=== PATIENT | male | born 1960 | race Caucasian/White ===

== ENCOUNTER → 2017-05-27 | Outpatient (CLI) | payer BC ==
[~2017-05-27] MED LIST: ACET-24 PO; ACET1TAB84 PO; BUPRTAB PO; CHOL400C7 PO; CLB/200 PO; DVN/160 PO; ESCI1TAB10 PO; FINA5TAB PO; HYDR12.55 PO; MORP-157 PO; NXM/40 PO; PHN/100 PO; RXC5 PO; TAMS0.4C38 PO; XRL10 PO
[2017-05-27 15:19] LABS: FREE PSA 0.47 ng/ml; PROSTATE SPECIFIC ANTIGEN 3.12 ng/ml (0.000-4.000)
== END | disposition home or self-care (01) ==
LOC: C.LAB 14:11
PROVIDERS: ATTEND Urology
DX: R97.20 Elevated prostate specific antigen [PSA] (principal)

== ENCOUNTER 2017-06-17 06:33 | Inpatient (IN) | payer BC ==
[2017-05-18 09:39] VITALS: BMI 41.0
--- NOTE | 2017-05-18 10:17 | PAT Medication Instructions ---
Service Date May 18, 2017. Current Home Medication List Acetaminophen (Tylenol Arthritis Ext Rel), 1,300 MG PO QAM Bupropion Hcl (Wellbutrin Xl), 150 MG PO QAM Celecoxib (CeleBREX), 200 MG PO QAM Cholecalciferol (Vitamin D 400 Iu), 800 INTER.UNIT PO QAM Escitalopram Oxalate (Lexapro), 20 MG PO QAM Esomeprazole Magnesium (Nexium), 40 MG PO QAM Finasteride (Proscar), 5 MG PO QPM Hydrochlorothiazide (Hydrochlorothiazide), 12.5 MG PO QAM Phenytoin Sodium (Dilantin), 200 MG PO QAM Phenytoin Sodium (Dilantin), 300 MG PO QPM Tamsulosin Hcl (Flomax), 1 CAP PO QPM Valsartan (Diovan), 160 MG PO QAM Medication Instructions For Your Scheduled Surgery - Check with surgeon for instructions: Celecoxib (CeleBREX), 200 MG PO QAM - Hold the following medications the morning of surgery: Valsartan (Diovan), 160 MG PO QAM Hydrochlorothiazide (Hydrochlorothiazide), 12.5 MG PO QAM Cholecalciferol (Vitamin D 400 Iu), 800 INTER.UNIT PO QAM - Take the following medications the morning of surgery with a sip of water: Phenytoin Sodium (Dilantin), 200 MG PO QAM Escitalopram Oxalate (Lexapro), 20 MG PO QAM Esomeprazole Magnesium (Nexium), 40 MG PO QAM Acetaminophen (Tylenol Arthritis Ext Rel), 1,300 MG PO QAM Bupropion Hcl (Wellbutrin Xl), 150 MG PO QAM - Take the following medications as scheduled the night before surgery: Phenytoin Sodium (Dilantin), 300 MG PO QPM Tamsulosin Hcl (Flomax), 1 CAP PO QPM Finasteride (Proscar), 5 MG PO QPM Acetaminophen (Tylenol Arthritis Ext Rel), 1,300 MG PO QAM Bupropion Hcl (Wellbutrin Xl), 150 MG PO QAM If you have any questions please call us at [phone] or [phone] or [phone]
[2017-05-18 11:13] LABS: BASO ABS # 0.05 K/uL (0-0.2); COMPLETE YES; EOS % 10.7 %; HEMATOCRIT 47.6 % (42-52); IG% 0.2 %; LYMPH % 28.7 %; LYMPH ABS # 1.39 K/uL (1.2-3.4); MEAN CELL VOLUME 92.6 fL (80-100); MEAN CORPUSCULAR HEMOGLOBIN 29.8 pg (25-34); MEAN CORPUSCULAR HGB CONC 32.1 g/dl (32-36); MEAN PLATELET VOLUME 10.3 fL (7.4-10.4); MONO % 8.1 %; NEUT % 51.3 %; PLATELET COUNT 206 K/uL (130-400); RED BLOOD COUNT 5.14 M/uL (4.7-6.1); WHITE BLOOD COUNT 4.84 K/uL (4.8-10.8)
[2017-05-18 11:23] LABS: BUN/CREATININE RATIO 27.6 (10-20); CREATININE 0.9 mg/dl (0.60-1.40); POTASSIUM 4.1 mmol/L (3.5-5.1)
[2017-05-18 11:27] LABS: PARTIAL THROMBOPLASTIN RATIO 1.1; PROTHROMBIN TIME (PATIENT) 10.7 SECONDS (9.0-12.0)
--- NOTE | 2017-05-18 11:35 | DIAGNOSTIC IMAGING REPORT ---
CHEST 2 VIEWS ROUTINE CLINICAL HISTORY: PAT preoperative evaluation COMPARISON STUDY: 02/06/2013 FINDINGS: The bones soft tissues and hemidiaphragms are normal. The cardiomediastinal silhouette is normal. The lungs are clear. The pulmonary vasculature is normal. IMPRESSION: Negative chest. The above report was generated using voice recognition software. It may contain grammatical, syntax or spelling errors. Electronically signed by: Ronal Butler M.D. 05/18/2017 11:33 AM Dictated Date/Time: 05/18/2017 11:33 AM
--- NOTE | 2017-06-13 16:52 | HISTORY & PHYSICAL EXAMINATION ---
DATE OF ADMISSION: 06/17/2017 CHIEF COMPLAINT: Bilateral knee pain and discomfort, left side greater than right. 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 He has got history of bilateral knee pain and discomfort. He had his right knee scoped once in the past in 2002 and the left knee scoped twice. This was all done around the [place] area. We have been treating him conservatively with injections. He has had both steroid shots and viscosupplementation which became less effective over time. He actually had an adverse reaction to viscosupplementation. 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 He has got bilateral knee pain and discomfort. His walking tolerance is limited to a couple of blocks. He would now like to proceed with left knee replacement. Of note, the patient does have a history of DVT and PE after a triple arthrodesis of his left ankle done in [place] back in 2012. He has got no known clotting disorder. PAST MEDICAL HISTORY: 1. Hypertension. 2. History of DVT and PE in 2013 with no known clotting disorder. 3. Anxiety. 4. History of seizure disorder, currently without seizures, on Dilantin. 5. Obesity with a BMI of 42. 6. Low back pain. PAST SURGICAL HISTORY: Previous surgeries include: 1. Back surgery in 1990. 2. Right knee scope in 2002. 3. Left knee arthroscopy x2. 4. Triple arthrodesis in 2013 done at [place]. ALLERGIES: LODINE WHICH CAUSES HIVES AND RASH. CURRENT MEDICINES: Include: 1. Dilantin. 2. Diovan. 3. Lexapro. 4. Wellbutrin. 5. Celebrex. 6. Hydrochlorothiazide. 7. Vitamin D. 8. Tamsulosin. 9. Finasteride. 10. Omeprazole. 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 He is single. FAMILY HISTORY: Noncontributory. REVIEW OF SYSTEMS: As above. Does have this history of DVT without any known clotting disorder. His medical doctor is Dr. Winston. Denies any chest pain or shortness of breath. No bleeding problems. PHYSICAL EXAMINATION: GENERAL: Reveals a pleasant, healthy, middle-aged male. Looks to be in pretty good shape. HEENT: Benign. NECK: Supple. No lymphadenopathy. LUNGS: Clear to auscultation. HEART: Regular rate and rhythm. ABDOMEN: Soft, nontender, nondistended. EXTREMITIES: Grossly neurovascularly intact except as follows: Examination of both knees reveals the patient ambulates independently. He has got valgus alignment to both knees. He has got moderate to large soft tissue envelope. He has got some slight swelling in his legs and some slight venous stasis changes. Range of motion of both the knees is pretty symmetrical with 5 degrees short of full extension, 120 degrees of flexion. There is no instability in either side. X-RAYS: X-rays of both knees reviewed. It shows advanced bilateral knee DJD. He has got tricompartment disease. He has got complete loss of his lateral joint space, particularly on 30-degree flexion films. The left side is a bit worse than the right. He has got some chondrocalcinosis. 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 He has no known clotting disorder. He would like to proceed with knee replacement. PLAN: We are going to proceed with left knee replacement. I think with his clotting disorder, I think it is too high risk to do both knees at the same time. We will do his left knee first. He does have metal allergy, so we will use a Gonzalez [employer] Nephew zirconium knee replacement. We will be aggressive with DVT prophylaxis. The risks and benefits of this procedure were explained to the patient including but not limited to DVT, PE, , infection, neurological injury, vascular injury, bleeding problem, pain, limited range of motion, stiffness, failure to relieve symptoms, incomplete relief of symptoms, need for further surgery in the future, fracture, leg length inequality, nerve palsy, and need for revision surgery. The patient understands and desires to proceed. Informed consent was obtained. As far as discharge plans, he is planning to be discharged to home using [facility] home health program.
[2017-06-17] VITALS (9 sets, daily range): BP systolic 103–178; BP diastolic 65–109; PULSE 65–86; TEMP 36.4–37; O2SAT 92–100; Ht 185.4 cm; Wt 143.7 kg
[~2017-06-17] VITALS: Ht 185.4 cm; Wt 143.7 kg
[~2017-06-17 06:33] MED LIST changes: -ACET-24 PO; +ACETAMINOPHEN 500 MG TAB PO SCH; +BUPIVACAINE 0.25% 30 ML VIAL ONE; +BUPIVACAINE 0.5 % 5 MG/1 ML PF 10ML VIAL ONE; +BUPIVACAINE LIPOSOME 266 MG, BUPIVACAINE/EPINEPHRINE INJ 50 ML, SODIUM CHLORIDE 0.9% PF... INFIL SCH; +CEFAZOLIN 3000 MG/65 ML D5W 65 ML IV SCH; +FAMOTIDINE 20 MG TAB PO SCH; +FENTANYL CITRATE INJ 50 MCG/1 ML 2 ML VIAL ONE; +GABAPENTIN 300 MG CAP PO SCH; +LACTATED RINGER'S 1000ML 1,000 ML IV SCH; +LACTATED RINGER'S 1000ML 500 ML IV SCH; +METOCLOPRAMIDE HCL 10 MG TAB PO SCH; +MIDAZOLAM HCL 1 MG/ML 2ML VIAL ONE; -MORP-157 PO; -RXC5 PO; +SCOPOLAMINE 1.5 MG TDSY TD SCH; +TRANEXAMIC ACID INJ 1,000 MG in SODIUM CHLORIDE 0.9% 100ML 100 ML IV SCH; -XRL10 PO
--- NOTE | 2017-06-17 06:47 | History & Physical Bridge Note ---
H&P Re-Evaluation Bridge Note: I have examined the patient, reviewed the History & Physical and in the interval since the performance of the History & Physical I have noted the following changes of clinical significance: No changes noted
[2017-06-17] MEDS ORDERED: ATROPINE SULFATE 0.1 MG/ML 5ML SYR IV PRN (07:45)
[2017-06-17] MEDS ORDERED: ONDANSETRON INJ 2 MG/ML 2 ML VIAL IV PRN ×2 (07:45→11:30)
[2017-06-17] MEDS ORDERED: EpHEDrine SULFATE INJ 50 MG/ML AMP IV PRN (07:45)
[2017-06-17] MEDS ORDERED: BUPIVACAINE LIPOSOME 1/3% 266 MG/20 ML VIAL INFIL ONE (09:05)
[2017-06-17] MEDS ORDERED: BUPIVACAINE/EPINEPHRINE 0.25% 1:200,000 30 ML VIAL ONE (09:05)
[2017-06-17] MEDS ORDERED: BACITRACIN 50000 UNIT VIAL ONE (09:05)
[2017-06-17] MEDS ORDERED: SODIUM CHLORIDE 0.9% PF 50 ML VIAL ONE (09:05)
[2017-06-17] MEDS ORDERED: MIDAZOLAM HCL 1 MG/ML 2ML VIAL ONE ×3 (09:21→10:42)
[2017-06-17] MEDS ORDERED: PROPOFOL IV EMULSION 10 MG/ML 20 ML VIAL IV ONE ×4 (09:44→11:20)
[2017-06-17] MEDS ORDERED: MAGNESIUM HYDROXIDE SUSP 30 ML UDC PO PRN (11:30)
[2017-06-17] MEDS ORDERED: ALUMINUM/MAGNESIUM/SIMETH (MAALOX MAX) 30 ML UDC PO PRN (11:30)
[2017-06-17] MEDS ORDERED: BISACODYL 10 MG SUPP PR PRN (11:30)
[2017-06-17] MEDS ORDERED: DiphenhydrAMINE HCL 50 MG/ML VIAL IV PRN (11:30)
[2017-06-17] MEDS ORDERED: TAMSULOSIN HCL 0.4 MG CAP PO PRN (11:30)
[2017-06-17] MEDS ORDERED: MoRPHine SULFATE 2 MG/ML CARP IV PRN (11:30)
[2017-06-17] MEDS ORDERED: ZOLPIDEM TARTRATE 5 MG TAB PO PRN (11:30)
[2017-06-17] MEDS ORDERED: METOCLOPRAMIDE HCL INJ 5 MG/ML 2 ML VIAL IV PRN (11:30)
[2017-06-17] MEDS ORDERED: SILVER SULFADIAZINE 1% CR 50 GM JAR EXT PRN (11:30)
--- NOTE | 2017-06-17 11:30 | [facility] Post Operative Brief Note ---
Immediate Operative Summary Operative Date Jun 17, 2017. Pre-Operative Diagnosis Left Knee, Degenerative Joint Disease Post-Operative Diagnosis Same as preoperative Procedure(s) Performed Left Total Knee Arthroplasty Surgeon Dr. Eugene Orozco Distribution Superintendent Surgeon(s) Agustin Pepper PA-C Estimated Blood Loss 100 ml Findings Left Knee DJD Fluids (cc crystalloids) 1200 cc Specimens A.) Left Knee Bone and Tissue Drains HMV LEft Knee Anesthesia Spinal Complication(s) None Disposition Recovery Room / PACU
--- NOTE | 2017-06-17 11:53 | Anesthesiology Progress Note ---
Anesthesia Post Op Note Date & Time Jun 17, 2017 at 11:53 Vital Signs Pain Intensity: 0 Vital Signs Past 12 Hours Date Time Temp Pulse Resp B/P (MAP) Pulse Ox O2 Delivery O2 Flow Rate FiO2 06/17/17 11:45 74 14 123/87 100 Oxymask 10 06/17/17 11:35 36.2 75 14 129/80 97 Oxymask 10 06/17/17 07:41 81 20 140/89 (106) 94 Room Air 06/17/17 06:59 36.9 86 20 149/106 94 Room Air Notes Mental Status: alert / awake / arousable, participated in evaluation Pt Amnestic to Procedure: Yes Nausea / Vomiting: adequately controlled Pain: adequately controlled Airway Patency, RR, SpO2: stable & adequate BP & HR: stable & adequate Hydration State: stable & adequate Neuraxial Anesthesia: was administered, sensory block is resolving Anesthetic Complications: no major complications apparent
--- NOTE | 2017-06-17 11:59 | OPERATIVE REPORT ---
DATE OF OPERATION: 06/17/2017 SURGEON: Eugene Orozco MD INJECTION MOLDING TECHNICIAN: DEIDRE Rodriguez PREOPERATIVE DIAGNOSIS: Left knee degenerative joint disease. POSTOPERATIVE DIAGNOSIS: Same. PROCEDURE PERFORMED: Left cemented posterior stabilized total knee arthroplasty. COMPLICATIONS: None. ESTIMATED BLOOD LOSS: 100 mL. FLUID REPLACEMENT: 1200 mL crystalloid fluid replacement. TOURNIQUET TIME: 77 minutes at 350 mmHg. ANESTHESIA: Spinal with adductor canal block. DRAINS: Hemovac drain, left knee x2. SPECIMENS: Left knee sent for pathology. 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 I have been following him for the past 5 years, treating with medicines and injections. This became less successful over time. The left knee is bothered more than the right knee and he elected to proceed with left total knee arthroplasty. The patient does have an apparent NICKEL ALLERGY, so we used the Gonzalez [employer] Nephew Zirconium total knee arthroplasty. OPERATIVE FINDINGS: Operative findings revealed advanced left knee DJD. He had extensive grade 4 changes in the lateral femoral condyle and lateral tibial plateau with eburnation of the lateral femoral condyle. He had a valgus aligned knee. He had a moderate sized joint effusion. Some osteophytes in the posterior aspect of the femur as well as the lateral compartment. OPERATIVE IMPLANTS: Operative implants consisted of: 1. Gonzalez & Nephew Journey II, size 7 femoral component. 2. Gonzalez [employer] Nephew Journey II, size 6 tibial tray. 3. A 9-mm posterior stabilized polyethylene insert. 4. A 35 x 9 all poly patella. OPERATIVE PROCEDURE: The patient was taken to the operating room, identified and placed on the operating table in the supine position. All contact areas were appropriately padded. IV antibiotics were provided by anesthesia team. A spinal anesthetic and adductor canal block had been provided in the holding area. Dasilva catheter was placed in sterile fashion. A left thigh tourniquet was then placed and left lower extremity was then prepped and draped in the usual sterile fashion. Left leg was elevated and exsanguinated with Esmarch and tourniquet was placed at 300 mmHg. An anterior approach of left knee was then performed through a longitudinal incision centered over the patella. Sharp dissection was carried out through the subcutaneous tissues down to the extensor mechanism. Medial parapatellar arthrotomy incision was made. Some subperiosteal dissection was carried out medially. The fat pad was resected from beneath the patellar tendon. The lateral patellofemoral ligament was released. The patella was everted and knee was flexed. The osteophytes were taken off the distal femur. The ACL and PCL were then released from the distal femur and the tibia subluxated anteriorly. The external tibial alignment jig was then placed in the anterior face of the tibia and adjusted 8 mm medially. Proximal tibial cut was made to remove about 4 mm of bone from the medial side. The tibia was then sized to a size 6. Some osteophytes were taken off medial and posteromedially. Attention was then drawn to the femur. The distal femur was entered with a sharp drill. Intramedullary canal was suctioned. A left 5-degree valgus cutting guide was placed. The distal femoral cutting block was pinned in place. I adjusted this to take an additional 2 mm of bone off the distal femur. The femur was then sized to a size 7. We did downsize this slightly. The AP cutting block was pinned parallel to the epicondylar axis, which was 6 degrees of external rotation. The anterior cut, anterior cord, posterior cut, posterior cord, and anterior chamfer cuts were made. I then placed the box guide. The milling and drill devices were used to create the intercondylar notch resection. The femoral component was then removed. I flexed the knee. The posterior osteophytes were removed. The remnants of the medial and lateral meniscus were excised. The femoral component was then replaced. The tibial tray was pinned in maximum external rotation and the drill and stem punch were used to create defect in proximal tibia for the tibial tray. I then trialed the knee and a 9-mm insert fit most appropriately. Attention was then drawn to the patella. The patella was cleaned of all soft tissues. Patella thickness measured 26 mm in thickness and it was cut down to 15. It was sized to a size 35 patella. Lug holes were drilled for a 35 patella. Lateral osteophyte was removed. Patella button was placed. Knee was taken through range of motion and patella tracked reasonably well. Attention was then drawn toward placement of permanent components. All trial components were removed. A bone plug was placed in the distal femur to limit blood loss. A double batch of Palacos G cement was mixed. A left size 7 femoral component, size 6 tibial tray, a 9-mm posterior stabilized polyethylene insert, a 35 x 9 all poly patella then cemented in place. Knee was brought out into full extension until cement hardened. A final cement check was then performed. Pericapsular tissues were injected with 100 mL of a combination of 20 mL of Exparel, 30 mL of normal saline, and 50 mL of 0.25% Marcaine with epinephrine. The patient did receive 1 gram of tranexamic acid. The tourniquet was then let down for final tourniquet time of 77 minutes. Hemostasis was assured with the use of electrocautery. There was quite a bit of oozing more than average, so we elected to place drains in the knee. The wound was once again irrigated. Two Hemovac drains were placed. The extensor mechanism was then closed with a combination of #1 PDS suture and #1 Vicryl suture in a [id number] fashion. Extensor mechanism was checked and found to be intact. Subcutaneous tissues were then closed with 2-0 Dexon suture in a buried interrupted fashion. Skin was closed skin ant. Leg was then cleaned and dried and a sterile dressing of Xeroform, 4 x 4, sterile cast padding and Quinten bandage were applied. The patient was then transferred to the recovery room in stable condition. The patient tolerated the procedure well with no complications. All needle and sponge counts were correct at the end of the operation. I attest to the content of the Intraoperative Record and any orders documented therein. Any exception s are noted below.
--- NOTE | 2017-06-17 12:12 | DIAGNOSTIC IMAGING REPORT ---
LEFT KNEE 1 OR 2 VIEWS ROUTINE CLINICAL HISTORY: Postoperative evaluation. COMPARISON: Left knee radiographs April 01, 2017. FINDINGS: Alignment of the total left knee arthroplasty is anatomic. There is no fracture or unexpected radiopaque foreign body. Skin ant and drains are present. IMPRESSION: Expected findings following total left knee arthroplasty. Electronically signed by: Jalen Medrano M.D. 06/17/2017 12:10 PM Dictated Date/Time: 06/17/2017 12:09 PM
[2017-06-17] MEDS: ACETAMINOPHEN 500 MG TAB PO SCH ×2 (13:46→22:17)
[2017-06-17] MEDS: D5W AND 1/2NSS + 20MEQ KCL 1,000 ML IV SCH ×2 (13:52→20:37)
[2017-06-17] MEDS: KETOROLAC TROMETHAMINE 15 MG/ML VIAL IV. SCH ×2 (14:32→20:36)
[2017-06-17] MEDS: CHECK SCOPOLAMINE PATCH PLACEMENT SCH (15:37)
[2017-06-17] MEDS: OXYCODONE HCL IR 5 MG TAB (IMMEDIATE RELEASE) PO PRN (15:49)
[2017-06-17] MEDS: VALSARTAN 80 MG TAB PO SCH (15:52)
[2017-06-17] MEDS: HYDROCHLOROTHIAZIDE 50 MG TAB PO SCH (15:53)
[2017-06-17] MEDS ORDERED: TRANEXAMIC ACID INJ 1,000 MG in SODIUM CHLORIDE 0.9% 100ML 100 ML IV SCH (17:30)
[2017-06-17] MEDS: FERROUS GLUCONATE 324 MG TAB PO SCH (18:27)
[2017-06-17] MEDS: CEFAZOLIN IV 2,000 MG in DEXTROSE 5% 50ML 50 ML IV SCH (18:59)
--- NOTE | 2017-06-17 19:59 | PROGRESS NOTE ---
DATE: 06/17/2017 SUBJECTIVE: A 57-year-old gentleman postop from a left knee replacement. He is doing well. Pain is controlled. No chest pain or shortness of breath. Not feeling dizzy or lightheaded. OBJECTIVE: VITAL SIGNS: Temperature is 36.7. Vital signs stable. GENERAL: Reveals a healthy, pleasant, middle-aged male. He is sitting up in bed, looks pretty comfortable. LUNGS: Clear to auscultation. HEART: Regular rate and rhythm. ABDOMEN: Soft, nontender, nondistended. EXTREMITIES: Grossly neurovascularly intact except as follows: Examination of the left leg reveals the dressing to be clean, dry and intact. Leg is well aligned. He can dorsiflex and plantarflex his foot appropriately. He is neurologically intact. X-RAYS: X-rays of the left knee from recovery room were reviewed. It shows left cemented total knee arthroplasty. Components looked to be in good position. No signs of problems. ASSESSMENT: A 57-year-old gentleman postop from a left knee replacement, doing well. Pain is controlled. He is neurologically intact. PLAN: 1. DVT prophylaxis including thigh-high TEDs, SCDs and Xarelto. We will start Xarelto 24 hours postop. He does have a history of a blood clot in the past just one without any known clotting disorder. 2. PT/OT. Weightbearing as tolerated. Left total knee protocol. 3. IV antibiotics x24 hours. 4. Pain control, doing well with current pain regimen. 5. Disposition: Planning to discharge to home with some home health once adequately recovered.
[2017-06-17] MEDS: DOCUSATE SODIUM 100 MG CAP PO SCH (20:45)
[2017-06-17] MEDS: FINASTERIDE 5 MG TAB PO SCH (20:46)
[2017-06-17] MEDS: TAMSULOSIN HCL 0.4 MG CAP PO SCH (20:46)
[2017-06-17] MEDS: PHENYTOIN SODIUM ER 100 MG CAP PO SCH (20:46)
[2017-06-17] MEDS: SENNA 8.6 MG TAB PO SCH (20:46)
[2017-06-17] MEDS: TAPENTADOL ER 50 MG TABCR PO SCH (20:48)
[2017-06-18] MEDS: CHECK SCOPOLAMINE PATCH PLACEMENT SCH ×4 (00:07→23:37)
[2017-06-18] MEDS: CEFAZOLIN IV 2,000 MG in DEXTROSE 5% 50ML 50 ML IV SCH (01:39)
[2017-06-18] MEDS: KETOROLAC TROMETHAMINE 15 MG/ML VIAL IV. SCH ×2 (01:40→07:54)
[2017-06-18] MEDS: D5W AND 1/2NSS + 20MEQ KCL 1,000 ML IV SCH ×2 (03:43→09:48)
[2017-06-18 04:01] VITALS: BP 112/68; PULSE 75; TEMP 36.9; O2SAT 94
[2017-06-18] MEDS: ACETAMINOPHEN 500 MG TAB PO SCH ×3 (06:00→21:21)
[2017-06-18 06:17] LABS: HEMATOCRIT 38.2 % (42-52); MEAN CELL VOLUME 94.3 fL (80-100); MEAN CORPUSCULAR HEMOGLOBIN 30.6 pg (25-34); MEAN CORPUSCULAR HGB CONC 32.5 g/dl (32-36); MEAN PLATELET VOLUME 9.7 fL (7.4-10.4); PLATELET COUNT 213 K/uL (130-400); RED BLOOD COUNT 4.05 M/uL (4.7-6.1); WHITE BLOOD COUNT 8.65 K/uL (4.8-10.8)
[2017-06-18 06:57] VITALS: BP 109/70; PULSE 73; TEMP 36.8; O2SAT 92
--- NOTE | 2017-06-18 07:48 | PROGRESS NOTE ---
DATE: 06/18/2017 SUBJECTIVE: A 57-year-old gentleman postop day 1 from a left knee replacement. He is doing pretty well. Pain is controlled. No chest pain or shortness of breath. Not feeling dizzy or lightheaded. OBJECTIVE: VITAL SIGNS: Temperature 36.8. Vital signs stable. PHYSICAL EXAMINATION: GENERAL: Reveals a healthy, pleasant, middle-aged male. He is lying in bed, looks pretty comfortable. LUNGS: Clear to auscultation. HEART: Regular rate and rhythm. ABDOMEN: Soft, nontender, nondistended. EXTREMITIES: Grossly neurovascularly intact except as follows: Examination of the left lower extremity reveals the leg to be well aligned. Dressing is clean, dry, and intact. He is neurologically intact. LABORATORY DATA: Hemoglobin 12.4. Hematocrit 38.4. Electrolytes are pending. ASSESSMENT: A 57-year-old gentleman postop day 1 from a left total knee replacement, doing pretty well. He does have a history of DVT x1 in the past. His pain is controlled. PLAN: 1. DVT prophylaxis including thigh-high TEDs, SCDs, and we will start Xarelto today for 1 month duration. 2. PT/OT. Weightbear as tolerated. Left total knee protocol. 3. Pain control, doing well with current pain regimen. 4. Disposition: He is planning to be discharged to home with some home health once adequately recovered.
--- NOTE | 2017-06-18 08:27 | Anesthesiology Progress Note ---
Anesthesia Post Op Note Date & Time Jun 18, 2017 at 08:27 Vital Signs Pain Intensity: 4.0 Vital Signs Past 12 Hours Date Time Temp Pulse Resp B/P (MAP) Pulse Ox O2 Delivery O2 Flow Rate FiO2 06/18/17 08:08 Room Air 06/18/17 06:57 36.8 73 19 109/70 (83) 92 Room Air 06/18/17 04:01 36.9 75 16 112/68 (83) 94 Room Air 06/17/17 23:54 37.0 75 17 114/75 (88) 92 Room Air 06/17/17 23:15 Room Air Notes Mental Status: alert / awake / arousable, participated in evaluation Pt Amnestic to Procedure: Yes Nausea / Vomiting: adequately controlled Pain: adequately controlled Airway Patency, RR, SpO2: stable & adequate BP & HR: stable & adequate Hydration State: stable & adequate Neuraxial Anesthesia: sensory block resolved Anesthetic Complications: no major complications apparent
[2017-06-18 08:50] LABS: BUN/CREATININE RATIO 20.2 (10-20); CALCIUM 7.9 mg/dl (8.5-10.1); CREATININE 0.98 mg/dl (0.60-1.40); POTASSIUM 3.6 mmol/L (3.5-5.1)
[2017-06-18] MEDS: TAPENTADOL ER 50 MG TABCR PO SCH ×2 (08:50→21:17)
[2017-06-18] MEDS: FERROUS GLUCONATE 324 MG TAB PO SCH ×3 (08:51→17:18)
[2017-06-18] MEDS: PHENYTOIN SODIUM ER 100 MG CAP PO SCH ×2 (08:51→21:20)
[2017-06-18] MEDS: ESCITALOPRAM OXALATE 20 MG TAB PO SCH (08:51)
[2017-06-18] MEDS: BuPROPion XL 150 MG TABCR PO SCH (08:51)
[2017-06-18] MEDS: OXYCODONE HCL IR 5 MG TAB (IMMEDIATE RELEASE) PO PRN ×4 (08:51→23:39)
[2017-06-18] MEDS: DOCUSATE SODIUM 100 MG CAP PO SCH ×2 (08:51→21:18)
[2017-06-18] MEDS: MULTIVITAMIN TAB PO SCH (08:51)
[2017-06-18] MEDS: CHOLECALCIFEROL 400 INTER.UNIT TAB PO SCH (08:51)
[2017-06-18] MEDS: PANTOprazole SOD 40 MG TAB PO SCH (08:51)
[2017-06-18] MEDS ORDERED: PANTOprazole SOD 40 MG TAB PO SCH (09:00)
[2017-06-18 10:03] VITALS: BP 149/91; PULSE 81; O2SAT 97
[2017-06-18] MEDS: RIVAROXABAN 10 MG TAB PO SCH (12:05)
[2017-06-18 12:07] VITALS: BP 150/95; PULSE 78; O2SAT 96
[2017-06-18 15:13] VITALS: BP 135/82; PULSE 85; TEMP 36.8; O2SAT 96
[2017-06-18] MEDS: TAMSULOSIN HCL 0.4 MG CAP PO SCH (21:18)
[2017-06-18] MEDS: FINASTERIDE 5 MG TAB PO SCH (21:19)
[2017-06-18] MEDS: SENNA 8.6 MG TAB PO SCH (21:19)
[2017-06-18] MEDS ORDERED: XRL10 PO (22:05)
[2017-06-18] MEDS ORDERED: ACET-24 PO (22:05)
[2017-06-18] MEDS ORDERED: RXC5 PO (22:05)
[2017-06-18] MEDS ORDERED: MORP-157 PO (22:05)
--- NOTE | 2017-06-18 22:08 | Discharge Instructions ---
Discharge Instructions Date of Service Jun 18, 2017. Admission Reason for Admission: Left Knee Degenerative Joint Disease Discharge Discharge Diagnosis / Problem: Left Knee Replacement Discharge Goals Goal(s): Decrease discomfort, Improve function, Increase independence, Improve disease control, Therapeutic intervention Activity Recommendations Activity Limitations: per Instructions/Follow-up section Weightbearing Status: Left weightbearing . Instructions / Follow-Up Instructions / Follow-Up ACTIVITY RECOMMENDATIONS: Physical Therapy: * You will go to physical therapy three times each week for four to six weeks after your surgery in order to regain your knee range of motion and to retrain your knee to work properly. * It is just as important to make sure you are getting your knee perfectly straight as it is to regain your knee bend. * Taking a pain pill an hour before therapy can help you have a more productive and comfortable therapy session. Home Exercise: * You were shown a series of exercises (heel props, heel slides, etc.) in the hospital. Do these exercises three to four times each day including the exercises you were shown in physical therapy. Walking: * Get up and walk several times each day. For the first four weeks, try not to stand or walk for more than one hour at a time. If you do stand or walk for more than one hour, you will not hurt anything, but your knee and leg will likely swell. * As you feel comfortable, you may change from the walker or crutches to a cane and then to independent walking. MEDICATIONS: New Medicine: * You will likely be taking one or more of these medications: 1. MS Contin - A long-acting pain medication. Take 1 tablet twice a day for the first ten days to decrease your baseline level of pain. 2. Oxycodone - A quick and shorter-acting pain medication. Take one to two tablets every four to six hours to lessen your pain. 3. Aspirin - Thins your blood to lessen the chance of forming a blood clot. * The most common side effects of pain medicine and iron are nausea and constipation. If nausea or constipation is too much of a problem or if you have any questions about your new medicines or doses, call [facility] at [phone]. We will try to help you manage these issues. VERY IMPORTANT TO READ AND REVIEW" Pain: * The immediate post-operative period after knee replacement surgery is often quite painful. * You are given a prescription for pain medicine. You should take it, as directed, when you need it, especially before physical therapy and before going to bed. Pain that interferes with sleep is very common and can last several months. * You will likely need pain medicine for the first four to six weeks. It will not stop all of the pain. The pain will lessen and as you feel better, you may change to milder pain medicine such as Tylenol. * The most common side effects of pain medicine are nausea and constipation, so don't take more than you need. SPECIAL CARE INSTRUCTIONS: TEDs/Elastic Stockings: * The white elastic stockings help limit swelling and prevent blood clots from forming in your legs. The more you wear them, the more they work. * Wear them for six weeks after knee replacement surgery and four weeks after partial knee replacement. Prevention of Infection: * Take antibiotics one hour before any dental cleaning, dental work, urological procedure, gastrointestinal procedure or any invasive surgery in order to prevent your new joint from getting infected. * You may get the antibiotics from the doctor performing the procedure or you may call our office at before and we will call in a prescription to the pharmacy of your choice. Things to Watch For: * Drainage from the incision site that occurs more than one week after your surgery. * Severely increased knee/leg pain or swelling. * Increased redness at the incision site. * Fever above 102 degrees Fahrenheit. * Unusual chest pain or shortness of breath. * Unusual pain or burning with urination. Call [facility] at with any of the above problems or if you have any questions about your medicines or recovery. FOLLOW UP VISIT: Make an appointment to see your doctor for approximately two weeks after surgery for a progress check and staple removal by calling the office at . Current Hospital Diet Patient's current hospital diet: Regular Diet Discharge Diet Recommended Diet: Regular Diet Procedures Procedures Performed: Left Total Knee Arthroplasty Pending Studies Studies pending at discharge: no Medical Emergencies . Who to Call and When: Medical Emergencies: If at any time you feel your situation is an emergency, please call [phone] immediately. . Non-Emergent Contact Non-Emergency issues call your: Surgeon . "Provider Documentation" section prepared by Eugene Orozco. . VTE Core Measure Inpt VTE Proph given/why not?: Other Anticoagulation, T.E.D. Stockings, SCD's
[2017-06-18 23:05] VITALS: BP 142/89; PULSE 92; TEMP 37; O2SAT 94
[2017-06-19] MEDS: ACETAMINOPHEN 500 MG TAB PO SCH (05:54)
[2017-06-19] MEDS: OXYCODONE HCL IR 5 MG TAB (IMMEDIATE RELEASE) PO PRN ×2 (05:57→10:42)
[2017-06-19 06:55] VITALS: BP 134/85; PULSE 88; TEMP 36.8; O2SAT 94
[2017-06-19 08:04] VITALS: BP 134/85; PULSE 88; TEMP 36.8; O2SAT 94
--- NOTE | 2017-06-19 08:41 | PROGRESS NOTE ---
DATE: 06/19/2017 DATE: 06/19/2017 SUBJECTIVE: A 57-year-old gentleman postop day 2 from a left knee replacement. He is doing pretty well. Pain is controlled. Therapy has gone well. No chest pain or shortness of breath. Not feeling dizzy or lightheaded. OBJECTIVE: VITAL SIGNS: Temperature 36.8. Vital signs stable. PHYSICAL EXAMINATION: GENERAL: Reveals a healthy, pleasant, middle-aged male. He is sitting at his bedside chair and looks pretty comfortable. LUNGS: Clear to auscultation. HEART: Regular rate and rhythm. ABDOMEN: Soft, nontender, nondistended. EXTREMITY EXAMINATION: Grossly neurovascularly intact except as follows: Examination of the left leg reveals the dressing to be clean, dry and intact. No significant drainage. His calf is soft and supple. He can dorsiflex and plantarflex his foot appropriately. He is neurologically intact. ASSESSMENT: A 57-year-old gentleman postop day 2 from a left knee replacement, doing pretty well. Pain is controlled. PLAN: 1. DVT prophylaxis including thigh-high TEDs, SCDs, and Xarelto. We will give him Xarelto for 1 month postop. 2. PT/OT. Weightbearing as tolerated. Left total knee protocol. 3. Pain control. Doing well with current pain regimen. 4. Disposition. Plan to discharge to home with some home health later today.
[2017-06-19] MEDS: MULTIVITAMIN TAB PO SCH (08:47)
[2017-06-19] MEDS: BuPROPion XL 150 MG TABCR PO SCH (08:47)
[2017-06-19] MEDS: DOCUSATE SODIUM 100 MG CAP PO SCH (08:47)
[2017-06-19] MEDS: HYDROCHLOROTHIAZIDE 50 MG TAB PO SCH (08:47)
[2017-06-19] MEDS: PANTOprazole SOD 40 MG TAB PO SCH (08:47)
[2017-06-19] MEDS: TAPENTADOL ER 50 MG TABCR PO SCH (08:47)
[2017-06-19] MEDS: FERROUS GLUCONATE 324 MG TAB PO SCH (08:47)
[2017-06-19] MEDS: ESCITALOPRAM OXALATE 20 MG TAB PO SCH (08:47)
[2017-06-19] MEDS: RIVAROXABAN 10 MG TAB PO SCH (08:47)
[2017-06-19] MEDS: CHOLECALCIFEROL 400 INTER.UNIT TAB PO SCH (08:48)
[2017-06-19] MEDS: VALSARTAN 80 MG TAB PO SCH (08:48)
[2017-06-19] MEDS: PHENYTOIN SODIUM ER 100 MG CAP PO SCH (08:48)
--- NOTE | 2017-06-22 16:04 | DISCHARGE SUMMARY ---
ADMITTING PHYSICIAN AND SURGEON: Dr. Orozco. ADMITTING DIAGNOSIS: Left knee degenerative joint disease. SURGERY PERFORMED: Left total knee arthroplasty. SECONDARY DIAGNOSES: Hypertension, history of DVT and PE, anxiety, history of seizure disorder, obesity, low back pain. CONSULTS: None obtained. HISTORY AND PHYSICAL EXAMINATION: Well documented in the patient's chart. HOSPITAL COURSE: The patient was admitted on 06/17/2017 underwent total knee arthroplasty, tolerated the procedure well. There were no complications. He was transferred to the PACU postoperatively and later to the orthopedic floor for further care. He was given Ancef for antibiotic prophylaxis, KAREN stockings, SCDs and Xarelto for DVT prophylaxis. Hemoglobin, hematocrit and vital signs were monitored during his hospital stay and remained stable. He did not require any blood transfusions. There were no complications. By postoperative day 2, he was tolerating a general diet, pain was controlled with oral pain medicine. He was participating in physical therapy and had no signs or symptoms of deep vein thrombosis. On postop day 2, he was discharged home and set up with home health services. He was given discharge instructions including new prescriptions for Extra Strength Tylenol, MS Contin, oxycodone, and Xarelto. Continue his home medications with the exception of his home dose of Tylenol, which was changed. Continue physical therapy, weightbearing as tolerated, KAREN stockings. Follow up in 10-12 days or sooner if there are problems or concerns.
== END 2017-06-19 11:30 | disposition home health service (06) | DRG 470 ==
LOC: C.ACU 06:33 → C.3E 06:40 → ENRESERV 11:48
PROVIDERS: ADMIT Orthopaedic Surgery Sports Medicine; ATTEND Orthopaedic Surgery Sports Medicine
PROC: 0SRD0J9 Replacement of Left Knee Joint with Synthetic Substitute, Cemented, Open Approach (ICD-10-PCS; principal; 2017-06-17 09:15)
DX: M21.062 Valgus deformity, not elsewhere classified, left knee (principal); Z68.41 Body mass index [BMI] 40.0-44.9, adult; M21.061 Valgus deformity, not elsewhere classified, right knee; M25.462 Effusion, left knee; I10 Essential (primary) hypertension; K21.9 Gastro-esophageal reflux disease without esophagitis; G40.909 Epilepsy, unspecified, not intractable, without status epilepticus; F41.9 Anxiety disorder, unspecified; E66.01 Morbid (severe) obesity due to excess calories; Z98.1 Arthrodesis status; Z86.718 Personal history of other venous thrombosis and embolism; Z86.711 Personal history of pulmonary embolism; Z79.1 Long term (current) use of non-steroidal anti-inflammatories (NSAID); Z79.899 Other long term (current) drug therapy; Z91.048 Other nonmedicinal substance allergy status

== ENCOUNTER → 2018-01-20 | Outpatient (CLI) | payer OTHER ==
[~2018-01-20] MED LIST changes: +ACET-24 PO; -ACET1TAB84 PO; -ACETAMINOPHEN 500 MG TAB PO SCH; -BUPIVACAINE 0.25% 30 ML VIAL ONE; -BUPIVACAINE 0.5 % 5 MG/1 ML PF 10ML VIAL ONE; -BUPIVACAINE LIPOSOME 266 MG, BUPIVACAINE/EPINEPHRINE INJ 50 ML, SODIUM CHLORIDE 0.9% PF... INFIL SCH; -CEFAZOLIN 3000 MG/65 ML D5W 65 ML IV SCH; -FAMOTIDINE 20 MG TAB PO SCH; -FENTANYL CITRATE INJ 50 MCG/1 ML 2 ML VIAL ONE; -GABAPENTIN 300 MG CAP PO SCH; -LACTATED RINGER'S 1000ML 1,000 ML IV SCH; -LACTATED RINGER'S 1000ML 500 ML IV SCH; -METOCLOPRAMIDE HCL 10 MG TAB PO SCH; -MIDAZOLAM HCL 1 MG/ML 2ML VIAL ONE; +RXC5 PO; -SCOPOLAMINE 1.5 MG TDSY TD SCH; -TRANEXAMIC ACID INJ 1,000 MG in SODIUM CHLORIDE 0.9% 100ML 100 ML IV SCH; +XRL10 PO
== END | disposition home or self-care (01) ==
LOC: C.LAB 13:45
PROVIDERS: ATTEND Urology
DX: R97.20 Elevated prostate specific antigen [PSA] (principal)

== ENCOUNTER 2019-07-20 08:20 | Inpatient (IN) ==
--- NOTE | 2019-06-29 16:28 | PAT Medication Instructions ---
Medication Instructions Date of Service June 29, 2019 Home Medications bupropion HCl [Wellbutrin XL] 150 mg PO QAM buspirone 15 mg PO BID celecoxib [Celebrex] 200 mg PO QAM cholecalciferol (vitamin D3) [Vitamin D3] 1,200 unit PO QAM escitalopram oxalate [Lexapro] 20 mg PO QAM esomeprazole magnesium [Nexium] 40 mg PO QAM finasteride 5 mg PO QAM phenytoin sodium extended [Dilantin Extended] 200 mg PO QAM phenytoin sodium extended [Dilantin Extended] 300 mg PO HS tamsulosin 0.4 mg PO QPM valsartan-hydrochlorothiazide [Diovan HCT] 1 tab PO QAM ASK your surgeon for instructions celecoxib [Celebrex] 200 mg PO QAM DO NOT take the morning of surgery cholecalciferol (vitamin D3) [Vitamin D3] 1,200 unit PO QAM valsartan-hydrochlorothiazide [Diovan HCT] 1 tab PO QAM Take morning of surgery With a small sip of water, OTHERWISE NOTHING TO EAT OR DRINK AFTER MIDNIGHT: bupropion HCl [Wellbutrin XL] 150 mg PO QAM buspirone 15 mg PO BID escitalopram oxalate [Lexapro] 20 mg PO QAM esomeprazole magnesium [Nexium] 40 mg PO QAM finasteride 5 mg PO QAM phenytoin sodium extended [Dilantin Extended] 200 mg PO QAM Take evening before surgery buspirone 15 mg PO BID phenytoin sodium extended [Dilantin Extended] 300 mg PO HS tamsulosin 0.4 mg PO QPM Other Notes If you have any questions please call us at [phone] or [phone] or [phone] or [phone]
--- NOTE | 2019-06-30 09:40 | Anesthesiology Consultation ---
Date of Service June 30, 2019 Assessment & Plan (1) Encounter for pre-operative examination: Chart Review Chart Review: Pending: Refer to Additional Notes / Consult section (pending preop testing (labs, EKG, CXR)) and Patient seen in Pre Admission Testing Teaching & Discussion Pre-Anesthesia Teaching/Discussion Notes: Instructed NPO after midnight before surgery,except medications with 15 cc of water. Medication instructions provi ded according to the PAT guidelines. History Surgery Operation Date: 07/20/19 09:20 Proposed Procedures p Right Total Knee Replacement - Eugene Orozco MD Height/Weight Height: 6 ft 1.5 in Weight: 151.9 kg Allergies Allergy/AdvReac Type Severity Reaction Status Date / Time etodolac Allergy Unknown HIVES RASH Verified 06/27/19 09:25 nickel Allergy Unknown RASH WITH Verified 06/27/19 09:25 JEWELRY WITH NICKEL Additional Notes: *Surgeon/OR aware of nickel allergy* Medications Home Medications Medication Instructions Recorded Confirmed Last Taken bupropion HCl [Wellbutrin XL] 150 mg PO QAM 06/27/19 06/27/19 Unknown buspirone 15 mg PO BID 06/27/19 06/27/19 Unknown celecoxib [Celebrex] 200 mg PO QAM 06/27/19 06/27/19 Unknown cholecalciferol (vitamin D3) 1,200 unit PO QAM 06/27/19 06/27/19 Unknown [Vitamin D3] escitalopram oxalate [Lexapro] 20 mg PO QAM 06/27/19 06/27/19 Unknown esomeprazole magnesium [Nexium] 40 mg PO QAM 06/27/19 06/27/19 Unknown finasteride 5 mg PO QAM 06/27/19 06/27/19 Unknown phenytoin sodium extended 200 mg PO QAM 06/27/19 06/27/19 Unknown [Dilantin Extended] phenytoin sodium extended 300 mg PO HS 06/27/19 06/27/19 Unknown [Dilantin Extended] tamsulosin 0.4 mg PO QPM 06/27/19 06/27/19 Unknown valsartan-hydrochlorothiazide 1 tab PO QAM 06/27/19 06/27/19 Unknown [Diovan HCT] Past Medical History Medical History Anxiety BPH (benign prostatic hyperplasia) Deep vein thrombosis left thigh s/p foot surgery (2012); AC x 1 year GERD (gastroesophageal reflux disease) controlled Hypertension Morbid obesity Osteoarthritis Pulmonary embolism b/l left thigh s/p foot surgery (2012); AC x 1 year Seizure x2 (1996) 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; now on Dilantin Spinal stenosis Exercise / Class Metabolic Activity II 4-5 Yardwork/Stairs/Walk up hill Past Family History Family History Father Family history of diabetes mellitus Mother FHx: renal cell carcinoma, Onset Age: 87 Family/Other FHx: testicular cancer, Onset Age: 20 nephew Past Surgical History Surgical History H/O prostate biopsy History of colonoscopy History of laminectomy L5-L6 History of total knee replacement left S/P foot surgery, left Triple Arthrodesis (2012) S/P left knee arthroscopy x2 S/P right knee arthroscopy Past Anesthesia History No Hx of Anesthesia Complications and No Family Hx of Anesthesia Complications History of PONV No Hx of PONV and Hx of Motion Sickness (rare (on cruise)) Social History Smoking Status: Never smoker Do You Dip or Chew Tobacco: No Hx Alcohol Use: Yes alcohol intake frequency: holidays/special occasions only Hx Substance Use: No substance use type: does not use Review of Systems Reflux controlled. Patient denies chest pain, shortness of breath, dyspnea on exertion, cough, wheezing, palpitations. Physical Exam Vital Signs VITALS BP 130/84 P 68 TEMP 98.3 SP02 94%RA RESP 16 PHYSICAL Full neck and c-spine range of motion. Full TMJ range of motion. TMD 3 finger breaths Mallampati Score 3 Dentition: intact, 2 implants on molars Lungs: clear throughout to auscultation Cardiac: regular rate and rhythm, no murmurs noted Spine: normal Carotid arteries: negative bruit Extremities: no edema
--- NOTE | 2019-06-30 10:30 | XRay Report ---
XR chest Pre-admission PA/Lat HISTORY: 59 years-old Male PAT preoperative exam. COMPARISON: Chest radiograph 05/18/2017 TECHNIQUE: PA and lateral views of the chest FINDINGS: Cardiomediastinal and hilar silhouettes are within normal limits. There is no pneumothorax, pleural e ffusion, focal airspace consolidation or overt pulmonary edema. Degenerative changes of the shoulders and spine. IMPRESSION: No acute process. The above report was generated using voice recognition software. It may contain grammatical, syntax o r spelling errors. Electronically signed by: Rhys Tejada M.D. 06/30/2019 10:28 AM
[2019-06-30 11:04] LABS: Basophils # (auto) 0.06 K/uL (0-0.2); Eosinophils # (auto) 0.22 K/uL (0-0.5); Eosinophils % (auto) 3.8 %; Hematocrit (blood only) 44.9 % (42-52); Hemoglobin 15.1 g/dL (14.0-18.0); Immature Granulocytes # (auto) 0.01 K/uL (0.00-0.02); Immature Granulocytes % (auto) 0.2 %; Lymphocytes # (auto) 1.49 K/uL (1.2-3.4); Lymphocytes % (auto) 25.5 %; Mean Corpuscular Hemoglobin 31.3 pg (25-34); Mean Corpuscular Hgb Conc 33.6 g/dL (32-36); Mean Corpuscular Volume 93.2 fL (80-100); Mean Platelet Volume 10.5 fL (7.4-10.4); Monocytes # (auto) 0.61 K/uL (0.11-0.59); Monocytes % (auto) 10.4 %; Neutrophils # (auto) 3.46 K/uL (1.4-6.5); Neutrophils % (auto) 59.1 %; Platelet Count 188 K/uL (130-400); RDW Standard Deviation 44.2 fL (36.4-46.3); Red Blood Count 4.82 M/uL (4.7-6.1); White Blood Count 5.85 K/uL (4.8-10.8)
[2019-06-30 11:19] LABS: Partial Thromboplastin Time 27.3 Seconds (21.0-31.0); Prothrombin Time 10.7 Seconds (9.0-12.0)
[2019-06-30 11:46] LABS: BUN Creatinine Ratio 28.1 (10-20); Calcium 8.8 mg/dl (8.5-10.1); Creatinine Clr Calc Pharmacy 136.9 ml/min; Est GFR (African American) 107.3; Est GFR (Non-African American) 92.6; Potassium 3.8 mmol/L (3.5-5.1)
[2019-06-30 11:47] LABS: C Reactive Protein 1.32 mg/dl (0-0.29)
--- NOTE | 2019-07-15 18:16 | History and Physical Report ---
DATE OF ADMISSION: 07/20/2019 CHIEF COMPLAINT: Right knee pain. 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 He has been through extensive conservative treatment in the past. We did a left knee replacement done on him just about 2 years ago and he has done pretty well. We will continue to treat his right knee with intermittent injections which have become less successful over time. He has got global pain in his knee. The more he walks, the more he stands up, the more it hurts. He has got pain all the time. His walking tolerance is limited. He has pain going up and down stairs. He has nighttime pain. The more he walks, the more it hurts. He would like to have his right knee replaced. PAST MEDICAL HISTORY: 1. Hypertension. 2. History of DVT, PE in 2012. 3. Anxiety/depression. 4. History of seizure disorder in the past and not had any recent episodes, on Dilantin. 5. History of laminectomy. 6. Obesity with a BMI of 44. 7. BPH. PAST SURGICAL HISTORY: Include: 1. Back surgery in 1990. 2. Right knee scope. 3. Left knee scope in 2006. 4. Triple arthrodesis, left foot 2012. 5. Left knee replacement done on 06/17/2017. ALLERGIES: LODINE AND NICKEL. CURRENT MEDICINES: 1. Dilantin 100 mg 2 tablets in the morning and 3 in the evening. 2. Diovan/hydrochlorothiazide 160/25 once a day. 3. Celebrex 200 mg. 4. Wellbutrin 150 mg in the morning. 5. Vitamin C. 6. Lexapro 20 mg a day. 7. Tamsulosin. 8. Finasteride 5 mg. 9. Nexium 40 mg a day. 10. BuSpar 15 mg twice. 11. Vitamin D 1200 international units a day. SOCIAL HISTORY: A 59-year-old male. 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 He does not smoke. FAMILY HISTORY: Noncontributory. REVIEW OF SYSTEMS: Significant for one DVT/PE in the past. No known clotting disorder. No chest pain or shortness of breath. No bleeding problems. He is not on any formal anticoagulation. PHYSICAL EXAMINATION: GENERAL: A fairly large middle-aged male. Looks to be in pretty good health. HEENT: Benign. NECK: Supple, no lymphadenopathy. LUNGS: Clear to auscultation. HEART: Regular rate and rhythm. ABDOMEN: Soft, nontender, nondistended. EXTREMITIES: Grossly neurovascularly intact except as follows: Examination of the right knee reveals the patient walks independently. He has got valgus alignment to his right knee which is increased with weightbearing. He has got small to moderate sized knee effusion. Pretty large soft tissue envelope. Range of motion is 5-125. No instability. No pain with hip motion. X-RAYS: X-rays of the right knee reviewed. Shows advanced right knee DJD. He has got complete loss of his medial and lateral joint space. He has got subchondral sclerosis. He has got chondrocalcinosis, particularly medial. 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 He has failed conservative treatment and would like to have his right knee replaced. He does have a history of one deep venous thrombosis/pulmonary embolism in the past. No known clotting disorder. PLAN: We are going to proceed with right knee replacement. We will use a Gonzalez and Nephew knee due to his apparent NICKEL ALLERGY. We will use Xarelto for DVT prophylaxis including his known history of one clot in the past. The risks and benefits of this procedure were explained to the patient including but not limited to DVT, PE, , infection, neurological injury, vascular injury, bleeding problem, pain, limited range of motion, stiffness, failure to relieve symptoms, incomplete relief of symptoms, need for further surgery in future, fracture, leg length inequality, nerve palsy, etc. The patient understands and desires to proceed. Informed consent was obtained. As far as discharge plans, he is planning to be discharged to home using [facility] home health program.
[~2019-07-20 08:20] MED LIST changes: -ACET-24 PO; +ACETAMINOPHEN 500 MG TAB PO SCH; +BUPIVACAINE 0.5 % 5 MG/1 ML PF 10ML VIAL ONE; +BUPIVACAINE LIPOSOME/PF 266 MG, BUPIVACAINE/EPINEPHRINE 50 ML, SODIUM CHLORIDE 0.9% 30 ... INFIL SCH; -BUPRTAB PO; +CEFAZOLIN 3000MG 72.5 ML IV SCH; -CHOL400C7 PO; -CLB/200 PO; -DVN/160 PO; -ESCI1TAB10 PO; +FAMOTIDINE 20 MG TAB PO SCH; -FINA5TAB PO; +GABAPENTIN 600 MG DOSE PO SCH; -HYDR12.55 PO; +LR 500ML BOLUS, THEN 15ML/HR IV SCH; +LR 60ML/HR IV SCH; +METOCLOPRAMIDE HCL 10 MG TABLET PO SCH; -NXM/40 PO; -PHN/100 PO; +ROPIVACAINE 0.5% 5 MG/ML 30 ML VIAL ONE; -RXC5 PO; +SCOPOLAMINE 1.5 MG TDSY TD SCH; -TAMS0.4C38 PO; +TRANEXAMIC ACID 1,000 MG **IV Intra-op IV SCH; -XRL10 PO
--- NOTE | 2019-07-20 09:10 | History & Physical Bridge Note ---
Date of Service July 20, 2019 History & Physical Bridge Note I have examined the patient, reviewed the History & Physical and in the interval since the performance of the History & Physical I have noted the following changes of clinical significance: no changes noted
[2019-07-20] MEDS ORDERED: BUPIVACAINE/EPINEPHRINE 0.25% 1:200,000 30 ML VIAL ONE ×2 (10:04→10:09)
[2019-07-20] MEDS ORDERED: SODIUM CHLORIDE 0.9% PF 50 ML VIAL ONE (10:05)
[2019-07-20] MEDS ORDERED: BUPIVACAINE LIPOSOME 1.3% 266 MG/20 ML VIAL ONE (10:05)
[2019-07-20] MEDS ORDERED: BACITRACIN INJ 50,000 UNIT VIAL ONE (10:05)
[2019-07-20] MEDS ORDERED: PROPOFOL IV EMULSION 10 MG/ML 20 ML VIAL IV ONE ×3 (10:34→12:20)
[2019-07-20] MEDS ORDERED: LIDOCAINE HCL 2% 2 ML VIAL/AMP(20MG/ML) INFIL ONE (10:34)
[2019-07-20] MEDS ORDERED: MIDAZOLAM HCL 1 MG/ML 2ML VIAL ONE (10:35)
[2019-07-20] MEDS ORDERED: fentaNYL citrate 100 MCG/2 ML VIAL IV PRN (10:36)
[2019-07-20] MEDS ORDERED: ONDANSETRON INJ 2 MG/ML 2 ML VIAL IV PRN ×2 (10:36→13:57)
[2019-07-20] MEDS ORDERED: ATROPINE SULFATE 0.1 MG/ML 10ML SYR IV PRN (10:36)
[2019-07-20] MEDS ORDERED: ePHEDrine sulfate 50 MG/ML AMP IV PRN (10:36)
[2019-07-20] MEDS ORDERED: PHENYLEPHRINE HCL 10 MG/ML VIAL ONE (11:18)
[2019-07-20] MEDS ORDERED: fentaNYL citrate 100 MCG/2 ML VIAL ONE (12:48)
[2019-07-20] MEDS ORDERED: ONDANSETRON INJ 2 MG/ML 2 ML VIAL ONE (12:51)
--- NOTE | 2019-07-20 13:13 | Post Operative Brief Note ---
PG Immediate Post Op with CF Date of Surgery July 20, 2019 Pre & Post Diagnosis Operation Date: 07/20/19 10:55 Pre-Op Diagnosis: RIGHT KNEE DEGENERATIVE JOINT DISEASE W/KNEE PAIN Post-Op Diagnosis: RIGHT KNEE DEGENERATIVE JOINT DISEASE W/KNEE PAIN Procedure Operation Date: 07/20/19 10:55 Actual Procedures p Right Total Knee Replacement(Right) - Eugene Orozco MD Surgeon Eugene Orozco MD Telecommunication Operator Shantelle, PAC Estimated Blood Loss 100 Findings Consistent with Post-Op Diagnosis Fluids 1700 cc Specimens Specimen Description: A. Right Knee Bone and Tissue Drains Haro Catheter ([address], anethesia to monitor during surgery) Anesthesia Type Spinal MAC Complications none Disposition Accompanied Patient To Recovery: No Disposition: Recovery Room
--- NOTE | 2019-07-20 13:42 | XRay Report ---
RIGHT KNEE 2 VIEWS History: Right total knee arthroplasty. Degenerative arthritis. Postop. FINDINGS: The patient is status post a right total knee arthroplasty. The hardware is intact. No frac ture or dislocation. Skin ant are in place. IMPRESSION: Right total knee arthroplasty. No evidence for hardware complication. Electronically signed by: Yrn Miller M.D. 07/20/2019 1:41 PM
[2019-07-20] MEDS ORDERED: TAMSULOSIN HCL 0.4 MG CAP PO PRN (13:57)
[2019-07-20] MEDS ORDERED: NALOXONE HCL 0.4 MG/1 ML VIAL/CARP IV PRN (13:57)
[2019-07-20] MEDS ORDERED: HYDROmorphone INJ 0.5 MG/0.5 ML SYR IV PRN (13:57)
[2019-07-20] MEDS ORDERED: ALUMINUM/MAGNESIUM SUSP 30 ML UDC PO PRN (13:57)
[2019-07-20] MEDS ORDERED: METOCLOPRAMIDE HCL INJ 5 MG/ML 2 ML VIAL IV PRN (13:57)
[2019-07-20] MEDS ORDERED: MAGNESIUM HYDROXIDE SUSP 30 ML UDC PO PRN (13:57)
[2019-07-20] MEDS ORDERED: SODIUM CHLORIDE 0.9% 1000ML 1,000 ML IV SCH (13:57)
[2019-07-20] MEDS ORDERED: bisacodyL 10 MG SUPP PR PRN (13:57)
--- NOTE | 2019-07-20 14:46 | Anesthesiology Progress Note ---
Date of Service July 20, 2019 Anesthesia Post Procedure Vital Signs Vital Signs: Temp Pulse Pulse Resp BP Pulse Ox 07/20/19 14:30 36.6 C 70 16 117/80 96 07/20/19 14:00 36.5 C 73 16 117/78 07/20/19 13:44 36.6 C 68 16 118/80 95 07/20/19 13:35 70 16 127/79 95 07/20/19 13:25 72 16 123/82 95 07/20/19 13:19 36.4 C L 79 16 128/82 96 07/20/19 08:56 37 C 86 16 143/88 H 94 Pain Intensity Anterior Head: Pain Intensity: 2 Transfer of Care Handoff Completed per policy Notes Mental Status: alert / awake / arousable and participated in evaluation Nausea / Vomiting: adequately controlled Pain: adequately controlled Airway Patency, RR, SpO2: stable & adequate BP & HR: stable & adequate Hydration State: stable & adequate Neuraxial Anesthesia: was administered and sensory block is resolving Anesthetic Complications: no major complications apparent and Pt Satisfied with anesthetic care
[2019-07-20] MEDS: OXYCODONE HCL IR 5 MG TAB (IMMEDIATE RELEASE) PO PRN (15:10)
[2019-07-20] MEDS: ACETAMINOPHEN 500 MG TAB PO SCH ×2 (15:15→22:09)
[2019-07-20] MEDS: CHECK SCOPOLAMINE PATCH PLACEMENT SCH (15:19)
[2019-07-20] MEDS: FERROUS GLUCONATE 324 MG TAB PO SCH (16:21)
[2019-07-20] MEDS: KETOROLAC 30 MG/ML VIAL IV SCH ×2 (16:21→22:09)
[2019-07-20] MEDS: ASCORBIC ACID 500 MG TAB PO SCH (16:21)
[2019-07-20] MEDS: CEFAZOLIN 2000MG 2,000 MG/15 ML SYR IV SCH (18:11)
[2019-07-20] MEDS: ASPIRIN 81 MG ECTAB PO SCH (20:37)
[2019-07-20] MEDS: SENNA 8.6 MG TAB PO SCH (20:37)
[2019-07-20] MEDS: PHENYTOIN SODIUM ER 100 MG CAP PO SCH (20:37)
[2019-07-20] MEDS: TAMSULOSIN HCL 0.4 MG CAP PO SCH (20:37)
[2019-07-20] MEDS: DOCUSATE SODIUM 100 MG CAP PO SCH (20:37)
[2019-07-20] MEDS: BusPIRone 15 MG TAB PO SCH (20:37)
[2019-07-20] MEDS: TAPENTADOL HCL ER 50 MG TABCR PO SCH (20:40)
--- NOTE | 2019-07-20 20:43 | Progress Note ---
DATE: 07/20/2019 SUBJECTIVE: A 59-year-old gentleman postop from a right knee replacement. He is doing pretty well. Pain is controlled. He took 1 pain pill this afternoon. No chest pain or shortness of breath. Not feeling dizzy or lightheaded. OBJECTIVE: VITAL SIGNS: Temperature is 36.7. Vital signs stable. GENERAL: Large middle-aged male. He is sitting up in bed and talking to his mom. He looks comfortable. LUNGS: Clear to auscultation. HEART: Has a regular rate and rhythm. ABDOMEN: Soft, nontender, nondistended. EXTREMITIES: Grossly neurovascularly intact except as follows: Examination of the right lower extremity reveals the leg to be well aligned. Dressing is clean, dry, and intact. He can dorsiflex and plantarflex his foot appropriately. He is neurologically intact. X-RAYS: X-ray of the right knee from recovery room reviewed. It shows right cemented posterior stabilized total knee arthroplasty. Components looked to be in good position. No signs of problems. ASSESSMENT: A 59-year-old gentleman postop from a right knee replacement, doing well. His pain is controlled. He does have a history of deep venous thrombosis/pulmonary embolism in the past and we used Xarelto for his last knee replacement. The Dilantin can apparently affect the effectiveness of Xarelto. PLAN: 1. DVT prophylaxis including thigh-high TEDs, SCDs. We are going to use Xarelto. I am also going to put him on a baby aspirin twice a day. 2. PT/OT. Weight bear as tolerated. Right total knee protocol. 3. Pain control, doing well with current pain regimen. 4. IV antibiotics x24 hours. 5. Disposition: Plan to discharge to home with some home health once adequately recovered and medically stable.
--- NOTE | 2019-07-20 21:06 | Operative Report ---
DATE OF OPERATION: 07/20/2019 SURGEON: Eugene Orozco MD. SKIVER BLOCKERS: DEIDRE Rodriguez. PREOPERATIVE DIAGNOSIS: Right knee degenerative joint disease. POSTOPERATIVE DIAGNOSIS: Right knee degenerative joint disease. PROCEDURE PERFORMED: Right cemented posterior stabilized total knee arthroplasty. COMPLICATIONS: None. ESTIMATED BLOOD LOSS: 100 mL. TOURNIQUET TIME: 73 minutes at 350 mmHg. FLUID REPLACEMENT: 1700 mL crystalloid fluid replacement. 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 He underwent a left knee replacement several years ago and has done well from this. He has become more incapacitated by his right knee pain. He has been through extensive conservative treatment over the years, which became less successful with time. He elected to proceed with right total knee arthroplasty. The patient has a history of a NICKEL ALLERGY, so will use a Gonzalez and Nephew zirconium knee replacement similar to his other side. OPERATIVE FINDINGS: Operative findings were advanced right knee DJD. He had grade 4 [id number] disease in all 3 compartments, most severe in the lateral compartment with eburnation of the lateral femoral condyle and posterolateral tibial plateau. He had a large knee joint effusion. Fairly large soft tissue envelope. OPERATIVE IMPLANTS: Operative implants consisted of: 1. Gonzalez and Nephew size 7 posterior stabilized zirconium femoral component. 2. Gonzalez and Nephew size 6 right tibial tray. 3. A 10 mm posterior stabilized polyethylene insert. 4. A 32 x 9 all poly patella. OPERATIVE PROCEDURE: The patient taken to the operating room, identified and placed on the operating table in supine position. All contact areas were appropriately padded. IV antibiotics provided by anesthesia team. A spinal anesthetic and adductor canal block had been provided in the holding area. Dasilva catheter was placed in sterile fashion. Right thigh tourniquet was then placed and the right lower extremity was then prepped and draped in usual sterile fashion. The right leg was elevated and exsanguinated with an Esmarch and tourniquet was placed at 350 mmHg. An anterior approach of the right knee was then performed through a longitudinal incision centered over the patella. Sharp dissection was carried through subcutaneous tissues down to the level of the extensor mechanism. A medial parapatellar arthrotomy incision was made. Some subperiosteal dissection was carried out medially. The fat pad resected from beneath the patellar tendon. The lateral patellofemoral ligament was released. The patella was subluxated laterally. The knee was flexed. The osteophytes were taken off the distal femur. The ACL and PCL were then released from the distal femur and the tibia subluxated anteriorly. The external tibial alignment jig was then placed in the anterior face of the tibia and adjusted 8 mm medially. Proximal tibial cut was made to remove about 2-3 mm of bone from the most deficient aspect of the medial side. The tibia was then sized to a size 6. Some osteophytes were taken off medial and posteromedially. Attention was then drawn to the femur. The distal femur was entered with a sharp drill bit. Intramedullary canal was suctioned. A right 5-degree valgus cutting guide was placed. Distal femoral cutting block was pinned in place. Distal femoral cut was adjusted to take an additional 4 mm of bone off the distal femur as the initial cut did even get down to the base of the notch area. The femur was then sized and sized to a size 7. We downsized this almost an entire size. The AP cutting block was then pinned parallel to the epicondylar axis, which was 4 degrees of external rotation. The anterior cord, anterior chamfer, posterior cut, posterior chamfer and then the anterior chamfer cuts were made. The bony fragments were removed. The knee was then flexed. The remnants of the medial and lateral menisci were excised. The osteophytes were taken off the posterior aspect of the femur. The femoral trial component was placed and shifted laterally to maximize patellofemoral tracking. The notch cutting guide was placed and the notch cut/reamings were performed. The trochlear groove was then placed. The tibia subluxated anteriorly. The tibial tray was then pinned in maximum external rotation and the drill and stem punch were used to create defect in the proximal tibia for the tibial tray. I then trialed the knee and the 10 mm insert fit most appropriately. Attention was then drawn to the patella. The patella was cleaned of all soft tissues. Patella thickness measured 25 mm in thickness, was cut down to 15. It was sized to a size 32 patella. We did downsize this slightly in order to maximize patellar tracking. The lateral osteophyte was removed. Lug holes were drilled for the patella. The knee was taken through range of motion, patella tracked quite nicely with the no thumbs test. Attention was then turned toward placement of permanent components. All trial components were removed. Bone plug was placed in the distal femur to limit blood loss. A double batch of Palacos G cement was mixed. A Gonzalez and Nephew zirconium Journey II size 7 posterior stabilized femoral component, size 6 tibial tray, 10 mm posterior stabilized polyethylene insert, and a 32 x 9 all poly patella then cemented in place. Knee was brought into full extension until cement hardened. A final cement check was then performed. Pericapsular tissues were injected with a total of 100 mL of combination of 20 mL Exparel, 30 mL of normal saline, and 50 mL of 0.25% Marcaine with epinephrine. We did give the patient 1 dose of tranexamic acid. The tourniquet was then let down for a total tourniquet time of 73 minutes. He did bleed a little bit more and we spent a little bit of time really obtaining good hemostasis. The wound was then once again irrigated. The extensor mechanism was then closed with combination of #1 PDS suture and #1 Vicryl suture in [id number] fashion. Extensor mechanism was then checked and found to be intact and subcutaneous tissue was then closed with #2 Dexon suture in a buried interrupted fashion. Skin was closed with skin ant. Leg was then cleaned, dried and a sterile dressing of Xeroform, 4 x 4, sterile cast padding and Quinten bandage were applied. The patient was then transferred to the recovery room in stable condition. The patient tolerated the procedure well with no complication. All needle and sponge counts were correct at the end of the operation. ADDENDUM: After the distal femoral cut was made, I did bring the knee out into extension. I did release some of the IT band and the posterolateral capsule in order to equalize the extension gap. I did have to release the popliteus laterally in order to equalize the flexion gap as it was tight laterally. Great care was taken during this part of the operation to protect the peroneal nerve at all times. I attest to the content of the Intraoperative Record and any orders documented therein. Any exception s are noted below.
[2019-07-21] MEDS: CHECK SCOPOLAMINE PATCH PLACEMENT SCH (00:32)
[2019-07-21] MEDS: CEFAZOLIN 2000MG 2,000 MG/15 ML SYR IV SCH (02:48)
[2019-07-21] MEDS: KETOROLAC 30 MG/ML VIAL IV SCH ×2 (04:50→10:10)
[2019-07-21 06:02] LABS: Hematocrit (blood only) 38.6 % (42-52); Hemoglobin 12.7 g/dL (14.0-18.0); Mean Corpuscular Hgb Conc 32.9 g/dL (32-36); Mean Corpuscular Volume 94.1 fL (80-100); Mean Platelet Volume 9.8 fL (7.4-10.4); Platelet Count 156 K/uL (130-400); RDW Coefficient of Variation 12.9 % (11.5-14.5); White Blood Count 6.54 K/uL (4.8-10.8)
[2019-07-21 06:34] LABS: BUN Creatinine Ratio 22.5 (10-20); Calcium 8.1 mg/dl (8.5-10.1); Creatinine Clr Calc Pharmacy 129.4 ml/min; Est GFR (African American) 100.6; Est GFR (Non-African American) 86.8; Potassium 3.8 mmol/L (3.5-5.1)
[2019-07-21] MEDS: ACETAMINOPHEN 500 MG TAB PO SCH ×3 (06:41→21:06)
--- NOTE | 2019-07-21 07:43 | Anesthesiology Progress Note ---
Date of Service July 21, 2019 Anesthesia Post Procedure Vital Signs Vital Signs: Temp Pulse Pulse Resp BP Pulse Ox 07/21/19 02:56 37.1 C 79 16 117/76 94 07/20/19 23:32 36.7 C 76 16 119/79 94 07/20/19 19:52 36.7 C 71 16 120/83 94 07/20/19 17:00 36.5 C 97 H 16 132/84 93 07/20/19 16:00 36.5 C 67 16 121/80 93 07/20/19 15:00 36.6 C 74 16 118/84 97 07/20/19 14:30 36.6 C 70 16 117/80 96 07/20/19 14:00 36.5 C 73 16 117/78 07/20/19 13:44 36.6 C 68 16 118/80 95 07/20/19 13:35 70 16 127/79 95 07/20/19 13:25 72 16 123/82 95 07/20/19 13:19 36.4 C L 79 16 128/82 96 07/20/19 08:56 37 C 86 16 143/88 H 94 Pain Intensity Anterior Head: Pain Intensity: 2 Notes Mental Status: alert / awake / arousable and participated in evaluation Patient Amnestic to Procedure: Yes Nausea / Vomiting: adequately controlled Pain: adequately controlled Airway Patency, RR, SpO2: stable & adequate BP & HR: stable & adequate Hydration State: stable & adequate Neuraxial Anesthesia: was administered and sensory block resolved Anesthetic Complications: no major complications apparent and Pt Satisfied with anesthetic care
--- NOTE | 2019-07-21 07:59 | Progress Note ---
DATE: 07/21/2019 SUBJECTIVE: A 59-year-old gentleman postop day 1 from a right knee replacement. He is doing quite well. Had a good night. Pain is controlled. No chest pain or shortness of breath. Not feeling dizzy or lightheaded. OBJECTIVE: VITAL SIGNS: Temperature 37.1. Vital signs stable. GENERAL: Reveals a pleasant, middle-aged male. He is sitting up in bed, looks quite comfortable. EXTREMITIES: Examination of the right leg reveals the leg to be well aligned. Dressing is clean, dry, and intact. He can dorsiflex and plantarflex his foot appropriately. He is neurologically intact. LABORATORY DATA: Hemoglobin 12.7, hematocrit 36.8. Electrolytes are stable. ASSESSMENT: A 59-year-old gentleman postoperative day 1 from a right knee replacement, doing pretty well. Pain is controlled. He is neurologically intact. He does have a history of deep venous thrombosis one time in the past and he is on Xarelto. PLAN: 1. DVT prophylaxis including thigh-high TEDs, SCDs, and Xarelto. We will also begin to use a baby aspirin twice a day. 2. PT/OT. Weight bear as tolerated. Right total knee protocol. 3. Pain control, doing pretty well with current pain regimen. 4. Disposition: He is planning to be discharged to home with some home health once adequately recovered and stable.
[2019-07-21] MEDS: TAPENTADOL HCL ER 50 MG TABCR PO SCH ×2 (09:05→21:04)
[2019-07-21] MEDS: ASPIRIN 81 MG ECTAB PO SCH ×2 (09:05→21:05)
[2019-07-21] MEDS: FERROUS GLUCONATE 324 MG TAB PO SCH ×2 (09:05→17:57)
[2019-07-21] MEDS: BusPIRone 15 MG TAB PO SCH ×2 (09:05→21:06)
[2019-07-21] MEDS: PANTOprazole 40 MG TAB PO SCH (09:06)
[2019-07-21] MEDS: ESCITALOPRAM OXALATE 20 MG TAB PO SCH (09:06)
[2019-07-21] MEDS: ASCORBIC ACID 500 MG TAB PO SCH ×2 (09:06→17:57)
[2019-07-21] MEDS: DOCUSATE SODIUM 100 MG CAP PO SCH ×2 (09:07→21:07)
[2019-07-21] MEDS: PHENYTOIN SODIUM ER 100 MG CAP PO SCH ×2 (09:07→21:05)
[2019-07-21] MEDS: MULTIVITAMIN TAB PO SCH (09:07)
[2019-07-21] MEDS: CHOLECALCIFEROL (VITAMIN D) 400 UNITS TABLET PO SCH (09:08)
[2019-07-21] MEDS: FINASTERIDE 5 MG TAB PO SCH (09:08)
[2019-07-21] MEDS: OXYCODONE HCL IR 5 MG TAB (IMMEDIATE RELEASE) PO PRN ×2 (09:09→21:04)
[2019-07-21] MEDS: BuPROPion XL 150 MG TABCR PO SCH (09:09)
[2019-07-21] MEDS: hydroCHLOROthiazide 25 MG TAB PO SCH (09:12)
[2019-07-21] MEDS: VALSARTAN 80 MG TAB PO SCH (09:12)
[2019-07-21] MEDS: RIVAROXABAN 10 MG TABLET PO SCH (14:21)
[2019-07-21] MEDS: TAMSULOSIN HCL 0.4 MG CAP PO SCH (21:06)
[2019-07-21] MEDS: SENNA 8.6 MG TAB PO SCH (21:06)
[2019-07-22] MEDS: ACETAMINOPHEN 500 MG TAB PO SCH (05:50)
[2019-07-22] MEDS: OXYCODONE HCL IR 5 MG TAB (IMMEDIATE RELEASE) PO PRN (07:45)
[2019-07-22] MEDS: PHENYTOIN SODIUM ER 100 MG CAP PO SCH (07:46)
[2019-07-22] MEDS: FINASTERIDE 5 MG TAB PO SCH (07:46)
[2019-07-22] MEDS: ASCORBIC ACID 500 MG TAB PO SCH (07:46)
[2019-07-22] MEDS: BuPROPion XL 150 MG TABCR PO SCH (07:46)
[2019-07-22] MEDS: RIVAROXABAN 10 MG TABLET PO SCH (07:46)
[2019-07-22] MEDS: BusPIRone 15 MG TAB PO SCH (07:47)
[2019-07-22] MEDS: DOCUSATE SODIUM 100 MG CAP PO SCH (07:47)
[2019-07-22] MEDS: FERROUS GLUCONATE 324 MG TAB PO SCH (07:47)
[2019-07-22] MEDS: CHOLECALCIFEROL (VITAMIN D) 400 UNITS TABLET PO SCH (07:47)
[2019-07-22] MEDS: TAPENTADOL HCL ER 50 MG TABCR PO SCH (07:47)
[2019-07-22] MEDS: ESCITALOPRAM OXALATE 20 MG TAB PO SCH (07:48)
[2019-07-22] MEDS: hydroCHLOROthiazide 25 MG TAB PO SCH (07:48)
[2019-07-22] MEDS: MULTIVITAMIN TAB PO SCH (07:48)
[2019-07-22] MEDS: PANTOprazole 40 MG TAB PO SCH (07:48)
[2019-07-22] MEDS: ASPIRIN 81 MG ECTAB PO SCH (07:48)
[2019-07-22] MEDS: VALSARTAN 80 MG TAB PO SCH (07:49)
--- NOTE | 2019-07-22 08:34 | Progress Note ---
DATE: 07/22/2019 SUBJECTIVE: A 59-year-old gentleman postop day 2 from a right knee replacement. He is doing well. Pain is controlled. Therapy has gone well. No chest pain or shortness of breath. OBJECTIVE: VITAL SIGNS: Temperature 37.6. Vital signs are stable. GENERAL: Shows a pleasant middle-aged male. He is sitting up in bed and looks pretty comfortable. EXTREMITIES: Examination of the right leg reveals the dressing to be clean, dry and intact. Calf is soft and supple. He is neurologically intact. ASSESSMENT: A 59-year-old gentleman postoperative day 2 from right knee replacement, doing pretty well. Pain is controlled. PLAN: 1. DVT prophylaxis including thigh-high TEDs, SCDs, and Xarelto for 1 month. We will also leave him on aspirin twice a day. 2. PT/OT. Weight bear as tolerated. Right total knee protocol. 3. Pain control, doing pretty well with current pain regimen. 4. Disposition: Plan to discharge to home with some home health later today.
--- NOTE | 2019-07-25 15:39 | Discharge Summary ---
ADMITTING PHYSICIAN AND SURGEON: Dr. Eugene Orozco. ADMITTING DIAGNOSIS: Right knee degenerative joint disease. SURGERY PERFORMED: Right total knee arthroplasty. SECONDARY DIAGNOSES: Hypertension, history of DVT and PE, anxiety, depression, history of seizure disorder, laminectomy, obesity, BPH. CONSULTS: None obtained. HISTORY AND PHYSICAL EXAMINATION: Well documented in the patient's chart. HOSPITAL COURSE: The patient was admitted on 07/20/2019 underwent total knee arthroplasty, tolerated the procedure well. There were no complications. He was transferred to the PACU postoperatively and later to the orthopedic floor for further care. He was given Ancef for antibiotic prophylaxis, KAREN stockings, SCDs and Xarelto for DVT prophylaxis. Hemoglobin, hematocrit and vital signs were monitored during his hospital stay and remained stable, did not require any blood transfusions. There were no complications. By postoperative day 2 he was tolerating a regular diet, pain was controlled with oral pain medicine. He was participating in physical therapy. On postop day 2, he was discharged home, set up with home health services, given printed discharge instructions as well as new prescriptions for extra strength Tylenol, aspirin, oxycodone, and Xarelto. Continue home medications, continue physical therapy, weightbearing as tolerated, KAREN stockings. Follow up approximately 2 weeks postop or sooner if there are any problems or concerns.
== END 2019-07-22 10:28 | disposition home health service (06) | DRG 470 ==
LOC: ASU 08:20 → 3E 13:18

== ENCOUNTER 2020-12-10 17:13 | Inpatient (IN) ==
[2020-12-10 17:41] LABS: Basophils # (auto) 0.05 K/uL (0-0.2); Basophils % (auto) 0.6 %; Eosinophils # (auto) 0.42 K/uL (0-0.5); Eosinophils % (auto) 5.1 %; Hematocrit (blood only) 48.4 % (42-52); Hemoglobin 16.6 g/dL (14.0-18.0); Immature Granulocytes # (auto) 0.02 K/uL (0.00-0.02); Immature Granulocytes % (auto) 0.2 %; Lymphocytes # (auto) 1.96 K/uL (1.2-3.4); Lymphocytes % (auto) 23.9 %; Mean Corpuscular Hemoglobin 31.5 pg (25-34); Mean Corpuscular Hgb Conc 34.3 g/dL (32-36); Mean Corpuscular Volume 91.8 fL (80-100); Mean Platelet Volume 9.7 fL (7.4-10.4); Monocytes % (auto) 8.5 %; Neutrophils # (auto) 5.04 K/uL (1.4-6.5); Neutrophils % (auto) 61.7 %; Platelet Count 247 K/uL (130-400); RDW Coefficient of Variation 12.6 % (11.5-14.5); RDW Standard Deviation 42.4 fL (36.4-46.3); Red Blood Count 5.27 M/uL (4.7-6.1); White Blood Count 8.19 K/uL (4.8-10.8)
[2020-12-10] MEDS ORDERED: METOPROLOL TARTRATE 1 MG/ML VIAL IV ONE (17:41)
[2020-12-10] MEDS: METOPROLOL TARTRATE 1 MG/ML VIAL IV PRN ×3 (17:44→17:55)
[2020-12-10] MEDS ORDERED: SODIUM CHLORIDE 0.9% 500 ML IV SCH (17:45)
--- NOTE | 2020-12-10 17:46 | Emergency Department Note ---
Impression & Plan Tachycardia, Hypertension, Palpitations, Atrial flutter with rapid ventricular response ED Provider Note NAME: ANJALI PALACIO AGE: 60 SEX: M : 1960 ARRIVES VIA: Walk-In INFORMANT: [Patient] ED PROVIDER(S): [Wayne Steiner MD] CHIEF COMPLAINT: Abnormal EKG HISTORY OF PRESENT ILLNESS: The patient is a 60-year-old male who states that he has noticed around 10 hours of symptoms. He felt some palpitations. His watch told him his heart rate was quicker. He was in contact with his doctors office and was sent to the ED. The patient has no known cardiac issues. He has no chest pain or shortness of breath. There has been no vomiting or nausea. He has been in baseline health. He did stop his Celebrex 3 days ago and started using some Advil, that was his only medication change. He has not missed any doses of his typical medications including, his blood pressure medication. REVIEW OF SYSTEMS: See HPI for pertinent positives and negatives. A total of ten systems were reviewed and were otherwise negative. PMHx/PSHx: See Below SOCIAL HISTORY: See Below. PHYSICAL EXAM: GENERAL: Patient is in no acute distress. HEENT: No acute trauma, normocephalic atraumatic, mucous membranes moist, no nasal congestion, no scleral icterus. NECK: No stridor, no adenopathy, no meningismus, trachea is midline. LUNGS: Clear to auscultation bilaterally, no wheeze, no rhonchi, breath sounds equal. HEART: Tachycardic, no murmurs, regular rhythm. ABDOMEN: Soft, nontender, bowel sounds positive, no hernias, no peritonitis. EXTREMITIES: No cyanosis, significant bilateral pedal edema, full range of motion of all the joints without pain or difficulty, no signs for acute trauma. NEUROLOGIC: Oriented x 3, no acute motor or sensory deficits, no focal weakness. SKIN: No rash, no jaundice, no diaphoresis. DIFFERENTIAL DIAGNOSIS: Cardiac ischemia, aortic dissection, pulmonary embolism, pneumothorax, SVT, A. fib or a flutter, pneumonia, pericarditis, myocarditis, esophageal rupture, GERD, cholecystitis, pancreatitis, musculoskeletal, as well as other pathologies. EMERGENCY DEPARTMENT COURSE/PROCEDURES: ECG: Indication was tachycardia. The ECG shows what appears to be atrial flutter with a rate of 126. There are some nonspecific ST changes. There is potential old inferior infarct noted. There is no ST elevation, no PVCs. The QTc is 382. Repeat ECG: Indication was tachycardia. The ECG shows atrial flutter with a rate of 91. There is no ST elevation, no PVCs. The QTc is 455. Compared to an ECG from earlier today, the rate has decreased. Continuous Cardiac Monitoring: An order was placed for continuous cardiac monitoring. The monitor shows a rate of 102 with atrial flutter. Critical Care Note: I have personally spent 41 minutes of critical care time in the direct management of this patient. This includes bedside care, interpretation of diagnostic studies, and testing, discussion with consultants, patient, and family members, and other required patient management activities. This 41 minutes is in excess of all separately billable procedures. MEDICAL DECISION MAKING: There is no leukocytosis or concerning anemia. There is a normal platelet count. D-dimer testing was elevated at over one thousand, this certainly makes PE more likely. There was no significant electrolyte abnormality or kidney failure. Alk phos slightly elevated, the remaining liver enzymes were unremarkable. No evidence for pancreatitis. The patient appeared to be in a euthyroid state. ECG showed what appeared to be a rapid atrial flutter. Cardiac enzyme testing x1 is not consistent with acute cardiac injury. Repeat ECG showed a slower heart rate and obvious atrial flutter. Covid testing returned negative. Chest x-ray did not show pneumonia or CHF. Chest CT showed older PEs, no acute PE seen. The patient was aggressively managed given the tachycardia. He received a 500 cc saline bolus. He received IV Lopressor, 5 mg at a time for a total of 3 doses. This did reduce the heart rate to the 90s. He remained in atrial flutter though. Given the palpitations, tachycardia, his hypertension and rapid atrial flutter, I do think a hospital stay is warranted. I spoke to the patient and case management. The on-call hospitalist was consulted. 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 Spinal stenosis Urinary urgency Surgical History H/O prostate biopsy History of bilateral knee replacement History of colonoscopy History of laminectomy L5-L6 History of total knee replacement left S/P foot surgery, left Triple Arthrodesis (2012) S/P left knee arthroscopy x2 S/P right knee arthroscopy Family History Father Family history of diabetes mellitus Mother FHx: renal cell carcinoma, Onset Age: 87 Family/Other FHx: testicular cancer, Onset Age: 20 nephew Social History Smoking Status: Never smoker Second Hand Exposure: No; Hx Alcohol Use: Yes Hx Substance Use: No Preferred Language: Sammarinese Communication Ability: Effective Highway Inspector Required: No Beliefs That Will Affect Care: None marital status: Current Living Situation: Spouse Feels Safe at Home: Yes Assistive Devices: Walker Allergies Allergies Allergy/AdvReac Type Severity Reaction Status Date / Time etodolac Allergy Unknown Hives and Verified 12/10/20 18:32 rash nickel Allergy Unknown Rash Verified 12/10/20 18:32 Home Meds Home Medications Medication Instructions Recorded Confirmed bupropion HCl [Wellbutrin XL] 150 mg PO QAM 06/27/19 12/10/20 buspirone 15 mg PO BID 06/27/19 12/10/20 celecoxib [Celebrex] 200 mg PO QAM PRN 06/27/19 12/10/20 escitalopram oxalate [Lexapro] 20 mg PO QAM 06/27/19 12/10/20 esomeprazole magnesium [Nexium] 40 mg PO QAM 06/27/19 12/10/20 phenytoin sodium extended 200 mg PO QAM 06/27/19 12/10/20 [Dilantin Extended] phenytoin sodium extended 300 mg PO HS 06/27/19 12/10/20 [Dilantin Extended] valsartan-hydrochlorothiazide 1 tab PO QAM 06/27/19 12/10/20 [Diovan HCT] amoxicillin 2,000 mg PO DIRECTED PRN 12/10/20 12/10/20 cholecalciferol (vitamin D3) 50 mcg PO QAM 12/10/20 12/10/20 [Vitamin D3] ibuprofen 800 mg PO Q8H PRN 12/10/20 12/10/20 Previous Rx's Medication Instructions Recorded finasteride 5 mg tablet 5 mg PO DAILY #90 tab 11/13/20 solifenacin 5 mg tablet 5 mg PO DAILY #90 tab 11/13/20 tamsulosin 0.4 mg capsule 0.4 mg PO DAILY #90 cap 11/13/20 Results & Data (ED) Vital Signs Vital Signs - 24 hr 12/10/20 17:13 12/10/20 17:16 12/10/20 17:27 Temperature 36.6 C Temperature Source Temporal Artery Scan Pulse Rate 130 H 125 H Pulse Rate from SpO2 Sensor 125 H Pulse Rhythm Regular Pulse Strength Normal Respiratory Rate 20 21 Respiratory Effort / Characteristics Non-Labored Spontaneous Respiratory Depth Normal Respiratory Pattern Regular Blood Pressure 189/135 H 164/109 H Blood Pressure Mean 153 127 Blood Pressure Position Sitting Pulse Oximetry 95 98 97 Oxygen Delivery Method Room Air Room Air Sepsis Recent Fever Within 48 Hours No Sepsis New/Unexplained Change in Mental Status No Sepsis Action Taken by Nursing No Action Required 12/10/20 17:30 12/10/20 17:31 12/10/20 17:35 Temperature Temperature Source Pulse Rate 127 H 127 H 126 H Pulse Rate from SpO2 Sensor 128 H 126 H 127 H Pulse Rhythm Pulse Strength Respiratory Rate 20 19 23 Respiratory Effort / Characteristics Respiratory Depth Respiratory Pattern Blood Pressure 154/109 H Blood Pressure Mean 124 Blood Pressure Position Pulse Oximetry 98 97 96 Oxygen Delivery Method Sepsis Recent Fever Within 48 Hours Sepsis New/Unexplained Change in Mental Status Sepsis Action Taken by Nursing 12/10/20 17:40 12/10/20 17:44 12/10/20 17:45 Temperature Temperature Source Pulse Rate 125 H 129 H 128 H Pulse Rate from SpO2 Sensor 125 H 129 H Pulse Rhythm Pulse Strength Respiratory Rate 13 25 H Respiratory Effort / Characteristics Respiratory Depth Respiratory Pattern Blood Pressure 154/109 H 158/100 H Blood Pressure Mean 119 Blood Pressure Position Pulse Oximetry 96 96 Oxygen Delivery Method Sepsis Recent Fever Within 48 Hours Sepsis New/Unexplained Change in Mental Status Sepsis Action Taken by Nursing 12/10/20 17:46 12/10/20 17:49 12/10/20 17:50 Temperature Temperature Source Pulse Rate 121 H 118 H 119 H Pulse Rate from SpO2 Sensor 123 H 86 Pulse Rhythm Pulse Strength Respiratory Rate 15 19 Respiratory Effort / Characteristics Respiratory Depth Respiratory Pattern Blood Pressure 140/92 140/92 Blood Pressure Mean 108 Blood Pressure Position Pulse Oximetry 95 96 Oxygen Delivery Method Sepsis Recent Fever Within 48 Hours Sepsis New/Unexplained Change in Mental Status Sepsis Action Taken by Nursing 12/10/20 17:51 12/10/20 17:55 12/10/20 17:56 Temperature Temperature Source Pulse Rate 115 H 94 H 121 H Pulse Rate from SpO2 Sensor 112 H 86 99 H Pulse Rhythm Pulse Strength Respiratory Rate 14 16 19 Respiratory Effort / Characteristics Respiratory Depth Respiratory Pattern Blood Pressure 123/89 Blood Pressure Mean 100 Blood Pressure Position Pulse Oximetry 96 95 96 Oxygen Delivery Method Sepsis Recent Fever Within 48 Hours Sepsis New/Unexplained Change in Mental Status Sepsis Action Taken by Nursing 12/10/20 18:00 12/10/20 18:04 12/10/20 18:07 Temperature Temperature Source Pulse Rate 98 H 102 H Pulse Rate from SpO2 Sensor 97 H 108 H Pulse Rhythm Pulse Strength Respiratory Rate 21 22 Respiratory Effort / Characteristics Respiratory Depth Respiratory Pattern Blood Pressure 120/89 125/96 Blood Pressure Mean 99 105 Blood Pressure Position Pulse Oximetry 97 95 Oxygen Delivery Method Sepsis Recent Fever Within 48 Hours Sepsis New/Unexplained Change in Mental Status Sepsis Action Taken by Skilled Nursing Medications Current Medication List: was personally reviewed by me Laboratory Data Attestation: I reviewed the patient's lab results. Result diagrams: 12/10/20 17:29 12/10/20 17:29 Lab Results 12/10/20 12/10/20 12/10/20 Range/Units 17:29 17:29 17:29 WBC 8.19 (4.8-10.8) K/uL RBC 5.27 (4.7-6.1) M/uL Hgb 16.6 (14.0-18.0) g/dL Hct 48.4 (42-52) % MCV 91.8 (80-100) fL MCH 31.5 (25-34) pg MCHC 34.3 (32-36) g/dL RDW Std Deviation 42.4 (36.4-46.3) fL RDW Coeff of Bernardo 12.6 (11.5-14.5) % Plt Count 247 (130-400) K/uL MPV 9.7 (7.4-10.4) fL Immature Gran % (Auto) 0.2 % Neut % (Auto) 61.7 % Lymph % (Auto) 23.9 % [place] % (Auto) 8.5 % Eos % (Auto) 5.1 % Baso % (Auto) 0.6 % Neut # (Auto) 5.04 (1.4-6.5) K/uL Lymph # (Auto) 1.96 (1.2-3.4) K/uL [place] # (Auto) 0.70 H (0.11-0.59) K/uL Eos # (Auto) 0.42 (0-0.5) K/uL Baso # (Auto) 0.05 (0-0.2) K/uL Immature Gran # (Auto) 0.02 (0.00-0.02) K/uL D-Dimer 1220 H* (0-500) ug/L FEU Sodium 142 (136-145) mmol/L Potassium 4.1 (3.5-5.1) mmol/L Chloride 108 H (98-107) mmol/L Carbon Dioxide 29 (21-32) mmol/L Anion Gap 5.0 (3-11) BUN 21 H (7-18) mg/dl Creatinine 0.88 (0.6-1.4) mg/dl Est Cr Clr Drug Dosing 135.7 ml/min Est GFR ( Amer) 109.0 Est GFR (Non-Af Amer) 94.0 BUN/Creatinine Ratio 24.4 H (10-20) Glucose 86 (70-99) mg/dl Calcium 9.2 (8.5-10.1) mg/dl Magnesium 2.0 (1.8-2.4) mg/dl Total Bilirubin 0.2 (0.2-1) mg/dl AST 18 (15-37) U/L ALT 35 (12-78) U/L Alkaline Phosphatase 138 H (45-117) U/L Troponin I < 0.015 (0-0.045) ng/ml Total Protein 7.5 (6.4-8.2) gm/dl Albumin 3.7 (3.4-5.0) gm/dl Globulin 3.8 (2.5-4.0) gm/dl Albumin/Globulin Ratio 1.0 (0.9-2) Lipase 93 (73-393) U/L TSH 1.430 (0.300-4.500) uIu/ml COVID-19 Eval Order SARS-CoV-2, RNA, NAAT (NEGATIVE) 12/10/20 12/10/20 Range/Units 19:45 19:45 WBC (4.8-10.8) K/uL RBC (4.7-6.1) M/uL Hgb (14.0-18.0) g/dL Hct (42-52) % MCV (80-100) fL MCH (25-34) pg MCHC (32-36) g/dL RDW Std Deviation (36.4-46.3) fL RDW Coeff of Bernardo (11.5-14.5) % Plt Count (130-400) K/uL MPV (7.4-10.4) fL Immature Gran % (Auto) % Neut % (Auto) % Lymph % (Auto) % [place] % (Auto) % Eos % (Auto) % Baso % (Auto) % Neut # (Auto) (1.4-6.5) K/uL Lymph # (Auto) (1.2-3.4) K/uL [place] # (Auto) (0.11-0.59) K/uL Eos # (Auto) (0-0.5) K/uL Baso # (Auto) (0-0.2) K/uL Immature Gran # (Auto) (0.00-0.02) K/uL D-Dimer (0-500) ug/L FEU Sodium (136-145) mmol/L Potassium (3.5-5.1) mmol/L Chloride (98-107) mmol/L Carbon Dioxide (21-32) mmol/L Anion Gap (3-11) BUN (7-18) mg/dl Creatinine (0.6-1.4) mg/dl Est Cr Clr Drug Dosing ml/min Est GFR ( Amer) Est GFR (Non-Af Amer) BUN/Creatinine Ratio (10-20) Glucose (70-99) mg/dl Calcium (8.5-10.1) mg/dl Magnesium (1.8-2.4) mg/dl Total Bilirubin (0.2-1) mg/dl AST (15-37) U/L ALT (12-78) U/L Alkaline Phosphatase (45-117) U/L Troponin I (0-0.045) ng/ml Total Protein (6.4-8.2) gm/dl Albumin (3.4-5.0) gm/dl Globulin (2.5-4.0) gm/dl Albumin/Globulin Ratio (0.9-2) Lipase (73-393) U/L TSH (0.300-4.500) uIu/ml COVID-19 Eval Order Covid19 [facility] SARS-CoV-2, RNA, NAAT NEGATIVE (NEGATIVE) Administered Medications Metoprolol Tartrate (Metoprolol Tartrate 1 Mg/Ml Vial) 5 mg IV Q5M PRN PRN Reason: Tachycardia Stop: 01/09/21 17:38 Last Admin: 12/10/20 17:55 Dose: 5 mg Documented by: [id number] Admin: 12/10/20 17:49 Dose: 5 mg Documented by: [id number] Admin: 12/10/20 17:44 Dose: 5 mg Documented by: [id number] Discontinued Medications Sodium Chloride (Nss) 500 mls @ 999 mls/hr IV .Q31M FELISHA Stop: 12/10/20 18:15 Last Infusion: 12/10/20 18:25 Dose: 0 mls/hr Documented by: [id number] Admin: 12/10/20 17:44 Dose: 999 mls/hr Documented by: [id number] Ioversol (Optiray 320 125ml) 116 ml IV ONCE ONE Stop: 12/10/20 18:43 Last Admin: 12/10/20 18:43 Dose: 116 ml Documented by: [id number] Metoprolol Tartrate (Metoprolol Tartrate 1 Mg/Ml Vial) Confirm Administered Dose 15 mg IV .STK-MED ONE Stop: 12/10/20 17:42 Last Admin: 12/10/20 17:44 Dose: Not Given Documented by: [id number] Imaging Data Radiologist's Impression: XR chest 1V portable HISTORY: Atypical Chest Pain COMPARISON: Chest 06/30/2019. FINDINGS: No pneumothorax or no pleural effusions. There are low lung volumes. The cardiac silhouette remains top normal in size. No evidence for pulmonary edema. No new focal lung consolidations to suggest pneumonia. IMPRESSION: No significant change compared to the prior study. No acute process. CHEST CTA for PULMONARY ARTERIES CT DOSE: 1024.26 mGy.cm HISTORY: Shortness of breath TECHNIQUE: Multiaxial CT images of the chest were performed following the intravenous administration of contrast to evaluate the pulmonary arteries. Maximal intensity projection images were also obtained. A dose lowering technique was utilized adhering to the principles of ALARA. COMPARISON STUDY: Chest CTA 02/13/2013. FINDINGS: Normal caliber thoracic aorta with no evidence for dissection. No pleural or pericardial effusions. The heart is normal in size. There are low lung volumes with slight elevation the right hemidiaphragm. This remains unchanged. Limited views of the upper abdomen demonstrate a stable 1 cm cyst within the left hepatic lobe. The visualized spleen and adrenal glands are unremarkable. Normal esophagus. No mediastinal or hilar lymphadenopathy. There are few small filling defects seen within the segmental/subsegmental pulmonary arteries of the right upper and right lower lobes. Although technically indeterminate, these appear to be nonocclusive and are located at the site of the prior pulmonary emboli. These have improved in the interval. Therefore, these favor chronic rather than acute pulmonary emboli. No evidence for right- sided heart strain. No suspicious lytic or blastic osseous lesions. The central airways are patent. There are few bibasilar linear densities consistent with subsegmental atelectasis. A punctate calcified granuloma within the right lung apex. No focal lung consolidations to suggest pneumonia. IMPRESSION: 1. There are few small filling defects seen within the segmental/subsegmental pulmonary arteries of the right upper and right lower lobes. Although technically indeterminate, these appear to be nonocclusive and are located at the site of the prior pulmonary emboli. These have improved in the interval. Therefore, these favor chronic rather than acute pulmonary emboli. 2. Low lung volumes with a few bibasilar linear densities suggesting subsegmental atelectasis. Otherwise, no focal lung consolidations to suggest pneumonia. Discharge Plan Visit Data Chief Complaint: Abnormal Labs/Diagnostic Testing Stated Complaint: ABNORMAL EKG ED Provider: Wayne Steiner Discharge Problem: Tachycardia, Hypertension, Palpitations, Atrial flutter with rapid ventricular response Patient Disposition: Admitted As Inpatient Condition: Good Forms Stand Alone Forms: [facility] [place] Prescriptions Prescriptions: No Action tamsulosin 0.4 mg capsule 0.4 mg PO DAILY Qty: 90 RF: 3 finasteride 5 mg tablet 5 mg PO DAILY Qty: 90 RF: 3 solifenacin [Vesicare] 5 mg tablet 5 mg PO DAILY Qty: 90 RF: 3 celecoxib [Celebrex] 200 mg Capsule 200 mg PO QAM PRN (Reason: Pain) RF: 0 phenytoin sodium extended [Dilantin Extended] 100 mg Capsule 200 mg PO QAM RF: 0 phenytoin sodium extended [Dilantin Extended] 100 mg Capsule 300 mg PO HS RF: 0 esomeprazole magnesium [Nexium] 40 mg Capsule,Delayed Release(Dr/Ec) 40 mg PO QAM RF: 0 buspirone 15 mg Tablet 15 mg PO BID RF: 0 valsartan-hydrochlorothiazide [Diovan HCT] 160-25 mg Tablet 1 tab PO QAM RF: 0 escitalopram oxalate [Lexapro] 20 mg Tablet 20 mg PO QAM RF: 0 bupropion HCl [Wellbutrin XL] 150 mg Tablet Extended Release 24 Hr 150 mg PO QAM RF: 0 ibuprofen 200 mg Tablet 800 mg PO Q8H PRN (Reason: Pain) RF: 0 cholecalciferol (vitamin D3) [Vitamin D3] 50 mcg (2,000 unit) Capsule 50 mcg PO QAM RF: 0 amoxicillin 500 mg tablet 2,000 mg PO DIRECTED PRN (Reason: Prior to Dental Work) RF: 0 Referrals Referrals: Garrett Winston [Primary Care Provider] - Discharge Problem: Hypertension Qualifiers: Hypertension type: unspecified Qualified Code(s): I10 - Essential (primary) hypertension
[2020-12-10 17:54] LABS: D Dimer 1220 ug/L FEU (0-500)
[2020-12-10 17:59] LABS: Alanine Aminotransferase 35 U/L (12-78); Albumin Level 3.7 gm/dl (3.4-5.0); Aspartate Aminotransferase 18 U/L (15-37); BUN Creatinine Ratio 24.4 (10-20); Blood Urea Nitrogen 21 mg/dl (7-18); Calcium 9.2 mg/dl (8.5-10.1); Carbon Dioxide 29 mmol/L (21-32); Chloride 108 mmol/L (98-107); Creatinine Clr Calc Pharmacy 135.7 ml/min; Glucose 86 mg/dl (70-99); Lipase 93 U/L (73-393); Potassium 4.1 mmol/L (3.5-5.1); Sodium 142 mmol/L (136-145)
[2020-12-10 18:02] LABS: Alkaline Phosphatase 138 U/L (45-117); Bilirubin,Total 0.2 mg/dl (0.2-1); Globulin 3.8 gm/dl (2.5-4.0); Total Protein 7.5 gm/dl (6.4-8.2)
[2020-12-10 18:19] LABS: Troponin I < 0.015 ng/ml (0-0.045)
--- NOTE | 2020-12-10 18:19 | XRay Report ---
XR chest 1V portable HISTORY: Atypical Chest Pain COMPARISON: Chest 06/30/2019. FINDINGS: No pneumothorax or no pleural effusions. There are low lung volumes. The cardiac silhouette remains top normal in size. No evidence for pulmonary edema. No new focal lung consolidations to sug gest pneumonia. IMPRESSION: No significant change compared to the prior study. No acute process. ACT 112: Negative or not required by law. Electronically signed by: Yrn Miller M.D. 12/10/2020 6:18 PM
[2020-12-10] MEDS ORDERED: OPTIRAY 320 125ml IV ONE (18:42)
--- NOTE | 2020-12-10 19:03 | CT Scan Report ---
CHEST CTA for PULMONARY ARTERIES CT DOSE: 1024.26 mGy.cm HISTORY: Shortness of breath TECHNIQUE: Multiaxial CT images of the chest were performed following the intravenous administration of contrast to evaluate the pulmonary arteries. Maximal intensity projection images were also obtaine d. A dose lowering technique was utilized adhering to the principles of ALARA. COMPARISON STUDY: Chest CTA 02/13/2013. FINDINGS: Normal caliber thoracic aorta with no evidence for dissection. No pleural or pericardial ef fusions. The heart is normal in size. There are low lung volumes with slight elevation the right phan diaphragm. This remains unchanged. Limited views of the upper abdomen demonstrate a stable 1 cm cyst within the left hepatic lobe. The visualized spleen and adrenal glands are unremarkable. Normal esoph pema. No mediastinal or hilar lymphadenopathy. There are few small filling defects seen within the se gmental/subsegmental pulmonary arteries of the right upper and right lower lobes. Although technicall y indeterminate, these appear to be nonocclusive and are located at the site of the prior pulmonary e mboli. These have improved in the interval. Therefore, these favor chronic rather than acute pulmonar y emboli. No evidence for right-sided heart strain. No suspicious lytic or blastic osseous lesions. T he central airways are patent. There are few bibasilar linear densities consistent with subsegmental atelectasis. A punctate calcified granuloma within the right lung apex. No focal lung consolidations to suggest pneumonia. IMPRESSION: 1. There are few small filling defects seen within the segmental/subsegmental pulmonary arteries of t he right upper and right lower lobes. Although technically indeterminate, these appear to be nonocclu sive and are located at the site of the prior pulmonary emboli. These have improved in the interval. Therefore, these favor chronic rather than acute pulmonary emboli. 2. Low lung volumes with a few bibasilar linear densities suggesting subsegmental atelectasis. Otherw ise, no focal lung consolidations to suggest pneumonia. ACT 112: Negative or not required by law. Electronically signed by: Yrn Miller M.D. 12/10/2020 7:02 PM
--- NOTE | 2020-12-10 21:32 | History & Physical Report ---
Date of Service December 10, 2020 Assessment & Plan Admission and Anticipated Discharge Date Admission Date: 60 yo pMHx. Anxiety, BPH, DVT/PE 2012, GERD, HTN, OA, Seizure X2 1996 on Dilantin presenting with tachycardia w/ palpitation found to be in atrial flutter. A. flutter with variable rate - Diltiazem 30 mg PO Q6H - History of Present Illness Chief Complaint: tachycardia Primary Care Provider: Garrett Winston Andrew Alvarenga is a 60 yo M here with tachycardia. He has a past medical history of Anxiety, BPH, DVT/PE s/p surgery 2012 (1yr. warfarin), HTN, OA, Seizures X2 in 1996. He woke up early this morning but did not go in to work since the roads were icy. He was notified by his rollApp watch that he had a tachycardic heart rate. He had a pulse oximeter and noted that he had a rate 124-132 throughout the day. He felt palpitations with a pounding of his chest that lasted 30 seconds three times in the day. He has no known cardiac issues, no prior a. fib or a. flutter. He saw his PCP vis telehealth and after getting an EKG was sent to the ER. He has been drinking more fluids lately. He has been exercising less lately but no other new changes that he can think of lately. He works as a pharmacist at [employer]. No tobacco, ETOH, or recreational drug use. ED course: IV Metoptolol, 500ml IVF Allergies Allergy/AdvReac Type Severity Reaction Status Date / Time etodolac Allergy Unknown Hives and Verified 12/10/20 18:32 rash nickel Allergy Unknown Rash Verified 12/10/20 18:32 Home Medications Medication Instructions Recorded Confirmed Type bupropion HCl [Wellbutrin XL] 150 mg PO QAM 06/27/19 12/10/20 History buspirone 15 mg PO BID 06/27/19 12/10/20 History celecoxib [Celebrex] 200 mg PO QAM PRN 06/27/19 12/10/20 History escitalopram oxalate [Lexapro] 20 mg PO QAM 06/27/19 12/10/20 History esomeprazole magnesium [Nexium] 40 mg PO QAM 06/27/19 12/10/20 History phenytoin sodium extended 200 mg PO QAM 06/27/19 12/10/20 History [Dilantin Extended] phenytoin sodium extended 300 mg PO HS 06/27/19 12/10/20 History [Dilantin Extended] valsartan-hydrochlorothiazide 1 tab PO QAM 06/27/19 12/10/20 History [Diovan HCT] finasteride 5 mg tablet 5 mg PO DAILY #90 tab 11/13/20 12/10/20 Rx solifenacin 5 mg tablet 5 mg PO DAILY #90 tab 11/13/20 12/10/20 Rx tamsulosin 0.4 mg capsule 0.4 mg PO DAILY #90 cap 11/13/20 12/10/20 Rx amoxicillin 2,000 mg PO DIRECTED PRN 12/10/20 12/10/20 History cholecalciferol (vitamin D3) 50 mcg PO QAM 12/10/20 12/10/20 History [Vitamin D3] ibuprofen 800 mg PO Q8H PRN 12/10/20 12/10/20 History 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 Spinal stenosis Urinary urgency Surgical History H/O prostate biopsy History of bilateral knee replacement History of colonoscopy History of laminectomy L5-L6 History of total knee replacement left S/P foot surgery, left Triple Arthrodesis (2012) S/P left knee arthroscopy x2 S/P right knee arthroscopy Family History Father Family history of diabetes mellitus Mother FHx: renal cell carcinoma, Onset Age: 87 Family/Other FHx: testicular cancer, Onset Age: 20 nephew Social History Smoking Status: Never smoker Second Hand Exposure: No; Hx Alcohol Use: Yes Hx Substance Use: No Preferred Language: Faroese Communication Ability: Effective Circuit Court Clerk Required: No Beliefs That Will Affect Care: None marital status: Current Living Situation: Spouse Feels Safe at Home: Yes Assistive Devices: Walker Review of Systems Review of Systems: Constitutional: denies fevers, chills, nausea, vomiting, fatigue, night sweats, weight change not related to diet or exercise Head: denies headache, confusion, lightheadedness, vision changes Neuro: denies syncope, slurring of speech, tingling admits chronic numbness of left leg ENT: denies stuffiness, sneezing, sore throat, allergy, epistaxis, neck pain Cardiac: denies chest pain admits palpitations, chronic leg edema Pulm.: denies cough, shortness of breath, wheezing, hemoptysis, sputum production GI: denies diarrhea, constipation : admits chronic stable urgency, denies dysuria Physical Exam Physical Exam: Constitutional: WD/WN, vitals as above Eyes: PERRL, conjunctivae normal, anicteric sclerae ENMT: external ear and nose normal, oropharynx normal Neck: normal visual inspection Thyroid: normal thyroid Respiratory: normal respiratory effort, lungs clear to auscultation Cardiovascular: - tachycardia w/o m/r/g Chest (Breasts): normal inspection/palpation of breasts Gastrointestinal (Abdomen): normal bowel sounds, soft, nontender, no hepatosplenomegaly Musculoskeletal: - 2+ pitting edema in lower extremity L>R Skin: no rashes, warm and dry Neurologic: normal touch/pain/proprioception Psychiatric: A+Ox3, euthymic affect Results & Data Results & Data ([facility]) Vital Signs (Past 12 Hours) Vital Signs Temp Pulse Resp BP Pulse Ox 12/10/20 20:01 107 H 16 153/107 H 96 12/10/20 18:07 102 H 22 95 12/10/20 18:04 125/96 12/10/20 18:00 98 H 21 120/89 97 12/10/20 17:56 121 H 19 96 12/10/20 17:55 94 H 16 123/89 95 12/10/20 17:51 115 H 14 96 12/10/20 17:50 119 H 19 140/92 96 12/10/20 17:49 118 H 140/92 12/10/20 17:46 121 H 15 95 12/10/20 17:45 128 H 25 H 158/100 H 96 12/10/20 17:44 129 H 154/109 H 12/10/20 17:40 125 H 13 96 12/10/20 17:35 126 H 23 96 12/10/20 17:31 127 H 19 97 12/10/20 17:30 127 H 20 154/109 H 98 12/10/20 17:27 125 H 21 164/109 H 97 12/10/20 17:16 36.6 C 130 H 20 189/135 H 98 12/10/20 17:13 95 Code Status & VTE Plan VTE Prophylaxis Plan VTE Prophylaxis will be ordered: Yes
[2020-12-10] MEDS ORDERED: IBUPROFEN 800 MG TAB PO PRN (22:15)
[2020-12-10] MEDS ORDERED: POLYETHYLENE (MIRALAX) 17 GM PACK PO PRN (22:15)
[2020-12-10] MEDS ORDERED: ACETAMINOPHEN 325 MG TAB PO PRN (22:15)
[2020-12-10] MEDS ORDERED: dilTIAZem HCl 5 MG/ML 5 ML VIAL IV PRN (22:15)
[2020-12-10] MEDS ORDERED: Heparin IV Adult Wt-Based Standard *NO* Bolus Protocol IV SCH (22:30)
[2020-12-10] MEDS: PHENYTOIN SODIUM ER 100 MG CAP PO SCH (22:47)
[2020-12-10] MEDS: busPIRone 15 MG TAB PO SCH (22:47)
[2020-12-10] MEDS: dilTIAZem HCL 30 MG TAB PO SCH (22:47)
[2020-12-10] MEDS: HEPARIN SODIUM/DEXTROSE 25,000 UNITS/500 ML BAG IV SCH (22:48)
[2020-12-10 23:31] LABS: Partial Thromboplastin Time 27.6 Seconds (21.0-31.0)
[2020-12-11] MEDS: dilTIAZem HCL 30 MG TAB PO SCH ×3 (05:17→18:27)
--- NOTE | 2020-12-11 06:33 | Ultrasound Report ---
BILATERAL LOWER EXTREMITY VENOUS DOPPLER HISTORY: Acute pain and swelling of the lower extremities leg pain COMPARISON STUDY: Duplex venous Doppler study 07/24/2019 FINDINGS: There is normal compressibility, flow, and augmentation within the bilateral lower extremit y deep venous systems. IMPRESSION: No DVT within the right or left lower extremity. ACT 112: Negative or not required by law. Electronically signed by: Rhys Tejada M.D. 12/11/2020 6:31 AM
[2020-12-11] MEDS: FINASTERIDE 5 MG TAB PO SCH (07:23)
[2020-12-11] MEDS: ESCITALOPRAM OXALATE 20 MG TAB PO SCH (07:23)
[2020-12-11] MEDS: buPROPion XL 150 MG TABCR PO SCH (07:23)
[2020-12-11] MEDS: PHENYTOIN SODIUM ER 100 MG CAP PO SCH ×2 (07:23→22:06)
[2020-12-11] MEDS: TAMSULOSIN HCL 0.4 MG CAP PO SCH (07:23)
[2020-12-11] MEDS: PANTOprazole 40 MG TAB PO SCH (07:23)
[2020-12-11] MEDS: busPIRone 15 MG TAB PO SCH ×2 (07:24→22:06)
[2020-12-11 07:34] LABS: Basophils # (auto) 0.06 K/uL (0-0.2); Basophils % (auto) 0.7 %; Eosinophils # (auto) 0.48 K/uL (0-0.5); Eosinophils % (auto) 5.4 %; Hematocrit (blood only) 47.4 % (42-52); Hemoglobin 16.2 g/dL (14.0-18.0); Immature Granulocytes # (auto) 0.01 K/uL (0.00-0.02); Immature Granulocytes % (auto) 0.1 %; Lymphocytes # (auto) 1.75 K/uL (1.2-3.4); Lymphocytes % (auto) 19.5 %; Mean Corpuscular Hemoglobin 31.5 pg (25-34); Mean Corpuscular Hgb Conc 34.2 g/dL (32-36); Mean Platelet Volume 10.3 fL (7.4-10.4); Monocytes # (auto) 0.66 K/uL (0.11-0.59); Monocytes % (auto) 7.4 %; Neutrophils # (auto) 6.01 K/uL (1.4-6.5); Neutrophils % (auto) 66.9 %; Platelet Count 236 K/uL (130-400); RDW Coefficient of Variation 12.8 % (11.5-14.5); RDW Standard Deviation 43.1 fL (36.4-46.3); Red Blood Count 5.15 M/uL (4.7-6.1); White Blood Count 8.97 K/uL (4.8-10.8)
--- NOTE | 2020-12-11 07:37 | Cardiology Consultation ---
Date of Consultation December 11, 2020 Assessment & Plan (1) Atrial flutter with rapid ventricular response: (2) Hypertension: ASSESSMENT/PLAN: 1. Atrial flutter with rapid ventricular response: The diagnosis was discussed with him in detail. Based on his smart watch, it appears as though atrial flutter began on 12/10/2020 at approximately 8:30 a.m.. He was placed on a heparin drip and is still within 48 hours of onset. Discussed treatment options. We discussed the fact that rate-controlling atrial flutter is typically difficult or unsuccessful. Recommended direct current cardioversion verses atrial flutter ablation. Pros and cons of each were discussed with him. We discussed the fact that cardioversion if successful, does not protect from future events and with his anxiety, he was somewhat interested in pursuing ablation. Offered to speak with electrophysiology and he agreed that if electrophysiology thought it was reasonable, he would consider atrial flutter ablation. This was discussed with Dr. Zavala of electrophysiology who plans on reviewing the chart and speaking with Mr. Alvarenga. Continue heparin drip. Continue rate-controlling medications for now. NPO after midnight. 2. Hypertension: Blood pressure reasonably controlled. Continue current regimen. 3. Disposition: Possible atrial flutter ablation tomorrow. NPO after midnight. If atrial flutter ablation is not an option or unavailable tomorrow, will proceed with direct current cardioversion. Plan of care discussed with Dr. Sloan of the primary hospitalist service. Highly complex medical issues. Thank you for allowing me to participate in the care of your patient. Please call for any other questions or concerns. Sincerely, James Martinez M.D. History of Present Illness Reason for Consultation: New Atrial flutter Requesting Physician: Avel Watts MD Attending Physician: Avel Watts MD History of Present Illness Mr. Alvarenga is a very pleasant 60-year-old gentleman with a history significant for hypertension, seizures, DVT/PE after foot surgery in 2012, and anxiety. He was admitted on 12/10/2020 with atrial flutter. He wears an [employer] smart watch and his resting heart rate is typically in the lower 70s. While wearing it yesterday morning for approximately 30 minutes, his watch started vibrating to notify him of an elevated heart rate at approximately 8:30 a.m.. He noted that his heart rate suddenly increased to the 130s. At first, he was completely asymptomatic but later in the day he felt a pounding in his chest while at rest and his heart rate tended to fluctuate between 124 and 134 beats per minute. This has not happened before and he denies prior palpitations. He admits that he has a lot of anxiety issues and when this occurs, he can experience chest tightness. Yesterday, he had anxiety when his heart rate was elevated and he felt some mild chest tightness that would intermittently occur, but last no longer than 1 minutes before spontaneously resolving. He denies angina, syncope, near-syncope, shortness of breath, edema, or bleeding such as melena, hematochezia, or hematuria. He denies recent diarrhea, vomiting, nausea, or fever. While here, he was placed on oral diltiazem with mild improvement in his heart rate but overall has remained tachycardic on review of telemetry. He was seen earlier today, shortly after completing his lunch. Review of systems: As above. Review of systems otherwise negative/unremarkable. Family history: Father had CAD and CABG in his 60s. Social history: He denies tobacco or drug abuse. Rare alcohol. No children. He is and lives at home with his spouse, Doe. 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 He was unaccompanied today. Allergies Allergy/AdvReac Type Severity Reaction Status Date / Time etodolac Allergy Unknown Hives and Verified 12/10/20 18:32 rash nickel Allergy Unknown Rash Verified 12/10/20 18:32 Home Medications Medication Instructions Recorded Confirmed Type bupropion HCl [Wellbutrin XL] 150 mg PO QAM 06/27/19 12/10/20 History buspirone 15 mg PO BID 06/27/19 12/10/20 History celecoxib [Celebrex] 200 mg PO QAM PRN 06/27/19 12/10/20 History escitalopram oxalate [Lexapro] 20 mg PO QAM 06/27/19 12/10/20 History esomeprazole magnesium [Nexium] 40 mg PO QAM 06/27/19 12/10/20 History phenytoin sodium extended 200 mg PO QAM 06/27/19 12/10/20 History [Dilantin Extended] phenytoin sodium extended 300 mg PO HS 06/27/19 12/10/20 History [Dilantin Extended] valsartan-hydrochlorothiazide 1 tab PO QAM 06/27/19 12/10/20 History [Diovan HCT] finasteride 5 mg tablet 5 mg PO DAILY #90 tab 11/13/20 12/10/20 Rx solifenacin 5 mg tablet 5 mg PO DAILY #90 tab 11/13/20 12/10/20 Rx tamsulosin 0.4 mg capsule 0.4 mg PO DAILY #90 cap 11/13/20 12/10/20 Rx amoxicillin 2,000 mg PO DIRECTED PRN 12/10/20 12/10/20 History cholecalciferol (vitamin D3) 50 mcg PO QAM 12/10/20 12/10/20 History [Vitamin D3] ibuprofen 800 mg PO Q8H PRN 12/10/20 12/10/20 History Patient History Medical History Anxiety BPH (benign prostatic hyperplasia) Deep vein thrombosis left thigh s/p foot surgery (2012); AC x 1 year GERD (gastroesophageal reflux disease) controlled Hypertension Morbid obesity Osteoarthritis Pulmonary embolism b/l left thigh s/p foot surgery (2012); AC x 1 year Seizure x2 (1996) 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; now on Dilantin Spinal stenosis Urinary urgency Surgical History H/O prostate biopsy History of bilateral knee replacement History of colonoscopy History of laminectomy L5-L6 History of total knee replacement left S/P foot surgery, left Triple Arthrodesis (2012) S/P left knee arthroscopy x2 S/P right knee arthroscopy Family History Father Family history of diabetes mellitus Mother FHx: renal cell carcinoma, Onset Age: 87 Family/Other FHx: testicular cancer, Onset Age: 20 nephew Social History Smoking Status: Never smoker Second Hand Exposure: No; Hx Alcohol Use: Yes Alcohol type: beer Hx Substance Use: No Preferred Language: Congolese Communication Ability: Effective [employer] Pond Worker Required: No Beliefs That Will Affect Care: None marital status: Current Living Situation: Spouse Other Information That Helps Us Care for You: No Feels Safe at Home: Yes Safety Concerns: Feels Safe At This Time Assistive Devices: None Physical Exam Physical Exam: Gen.: No acute distress. Alert and oriented. HEENT: Anicteric sclera. Neck: Thick neck. No bruits. Normal carotid upstrokes bilaterally. Cardiac: PMI was nonpalpable. No ventricular heave. Irregular and tachycardic. Normal S1-S2. No murmurs, rubs, or gallops. Pulmonary: Clear to auscultation bilaterally without wheezes, rales, or rhonchi. Abdomen: Soft, nontender, nondistended, with normoactive bowel sounds. No bruits noted. Extremities: 2+ radial pulses bilaterally. 2+ posterior tibialis pulses bilaterally. No significant pitting edema. No cyanosis. Psychiatric: Affect appears appropriate. Results & Data ([facility]) Vital Signs (Past 12 Hours) Vital Signs Temp Pulse Pulse Pulse Resp BP BP 12/11/20 03:45 36.6 C 99 H 20 126/75 12/10/20 22:37 36.6 C 116 H 18 12/10/20 21:56 119 H 24 139/94 12/10/20 21:47 119 H 24 139/94 12/10/20 20:01 107 H 16 153/107 H BP Pulse Ox 12/11/20 03:45 93 12/10/20 22:37 143/100 H 97 12/10/20 21:56 96 12/10/20 21:47 96 12/10/20 20:01 96 Laboratory Results Laboratory Results - last 24 hr 12/10/20 12/10/20 12/10/20 17:29 17:29 17:29 WBC 8.19 RBC 5.27 Hgb 16.6 Hct 48.4 MCV 91.8 MCH 31.5 MCHC 34.3 RDW Std Deviation 42.4 RDW Coeff of Bernardo 12.6 Plt Count 247 MPV 9.7 Immature Gran % (Auto) 0.2 Neut % (Auto) 61.7 Lymph % (Auto) 23.9 [place] % (Auto) 8.5 Eos % (Auto) 5.1 Baso % (Auto) 0.6 Neut # (Auto) 5.04 Lymph # (Auto) 1.96 [place] # (Auto) 0.70 H Eos # (Auto) 0.42 Baso # (Auto) 0.05 Immature Gran # (Auto) 0.02 APTT PTT Ratio D-Dimer 1220 H* Sodium 142 Potassium 4.1 Chloride 108 H Carbon Dioxide 29 Anion Gap 5.0 BUN 21 H Creatinine 0.88 Est Cr Clr Drug Dosing 135.7 Est GFR ( Amer) 109.0 Est GFR (Non-Af Amer) 94.0 BUN/Creatinine Ratio 24.4 H Glucose 86 Calcium 9.2 Magnesium 2.0 Total Bilirubin 0.2 AST 18 ALT 35 Alkaline Phosphatase 138 H Troponin I < 0.015 Total Protein 7.5 Albumin 3.7 Globulin 3.8 Albumin/Globulin Ratio 1.0 Lipase 93 TSH 1.430 COVID-19 Eval Order SARS-CoV-2, RNA, NAAT 12/10/20 12/10/20 12/10/20 17:29 19:45 19:45 WBC RBC Hgb Hct MCV MCH MCHC RDW Std Deviation RDW Coeff of Bernardo Plt Count MPV Immature Gran % (Auto) Neut % (Auto) Lymph % (Auto) [place] % (Auto) Eos % (Auto) Baso % (Auto) Neut # (Auto) Lymph # (Auto) [place] # (Auto) Eos # (Auto) Baso # (Auto) Immature Gran # (Auto) APTT 27.6 PTT Ratio 1.0 D-Dimer Sodium Potassium Chloride Carbon Dioxide Anion Gap BUN Creatinine Est Cr Clr Drug Dosing Est GFR ( Amer) Est GFR (Non-Af Amer) BUN/Creatinine Ratio Glucose Calcium Magnesium Total Bilirubin AST ALT Alkaline Phosphatase Troponin I Total Protein Albumin Globulin Albumin/Globulin Ratio Lipase TSH COVID-19 Eval Order Covid19 [facility] SARS-CoV-2, RNA, NAAT NEGATIVE 12/11/20 12/11/20 12/11/20 07:14 07:14 07:14 WBC 8.97 RBC 5.15 Hgb 16.2 Hct 47.4 MCV 92.0 MCH 31.5 MCHC 34.2 RDW Std Deviation 43.1 RDW Coeff of Bernardo 12.8 Plt Count 236 MPV 10.3 Immature Gran % (Auto) 0.1 Neut % (Auto) 66.9 Lymph % (Auto) 19.5 [place] % (Auto) 7.4 Eos % (Auto) 5.4 Baso % (Auto) 0.7 Neut # (Auto) 6.01 Lymph # (Auto) 1.75 [place] # (Auto) 0.66 H Eos # (Auto) 0.48 Baso # (Auto) 0.06 Immature Gran # (Auto) 0.01 APTT Pending PTT Ratio Pending D-Dimer Sodium Pending Potassium Pending Chloride Pending Carbon Dioxide Pending Anion Gap Pending BUN Pending Creatinine Pending Est Cr Clr Drug Dosing Pending Est GFR ( Amer) Pending Est GFR (Non-Af Amer) Pending BUN/Creatinine Ratio Pending Glucose Pending Calcium Pending Magnesium Total Bilirubin Pending AST Pending ALT Pending Alkaline Phosphatase Pending Troponin I Total Protein Pending Albumin Pending Globulin Pending Albumin/Globulin Ratio Pending Lipase TSH COVID-19 Eval Order SARS-CoV-2, RNA, NAAT Diagnostic Findings ECGs personally reviewed. ECG 12/10/20 at 1800: Atrial flutter with variable AV block at 91 beats per minute. ECG 12/10/2020 at 5:23 p.m.: Atrial flutter with 2-1 AV conduction at 126 beats per minute. Inferior infarct. Chest x-ray 12/10/2020: No significant change from prior study per Radiology. CTA chest 12/10/2020: Chronic pulmonary emboli per Radiology. Few bibasilar linear densities suggesting subsegmental atelectasis. Venous Doppler study 12/10/2020: No DVT within Bilateral lower extremities. Telemetry personally reviewed: Atrial flutter with rapid ventricular response. Echo 12/11/2020: Normal LV size, wall motion, systolic function. EF 60-65%. Mild LVH. No significant valvular abnormalities. RVSP 31. Medications Administered Current Inpatient Medications Acetaminophen (Acetaminophen 325 Mg Tab) 650 mg PO Q4H PRN PRN Reason: Pain or Fever Stop: 01/09/21 22:14 Bupropion HCl (Bupropion Xl 150 Mg Tabcr) 150 mg PO QAM [facility] Stop: 01/10/21 08:59 Last Admin: 12/11/20 07:23 Dose: 150 mg Documented by: Buspirone HCl (Buspirone 15 Mg Tab) 15 mg PO BID [facility] Stop: 01/09/21 22:29 Last Admin: 12/11/20 07:24 Dose: 15 mg Documented by: Diltiazem HCl (Diltiazem Hcl 30 Mg Tab) 30 mg PO Q6 [facility] Stop: 01/09/21 22:29 Last Admin: 12/11/20 05:17 Dose: 30 mg Documented by: Diltiazem HCl (Diltiazem Hcl 5 Mg/Ml 5 Ml Vial) 10 mg IV Q4H PRN PRN Reason: HR > 110 Stop: 01/09/21 22:14 Escitalopram Oxalate (Escitalopram Oxalate 20 Mg Tab) 20 mg PO [facility] Stop: 01/10/21 08:59 Last Admin: 12/11/20 07:23 Dose: 20 mg Documented by: Finasteride (Finasteride 5 Mg Tab) 5 mg PO DAILY [facility] Stop: 01/10/21 08:59 Last Admin: 12/11/20 07:23 Dose: 5 mg Documented by: Hydrochlorothiazide (Hydrochlorothiazide 25 Mg Tab) 25 mg PO [facility] Stop: 01/10/21 08:59 Last Admin: 12/11/20 07:23 Dose: 25 mg Documented by: Heparin Sodium/Dextrose (Heparin Sodium/Dextrose) 25,000 units in 500 mls @ 38 mls/hr IV .[id number] [facility]; Protocol Stop: 01/09/21 22:44 Last Titration: 12/11/20 06:46 Dose: 1,900 units/hr, 38 mls/hr Documented by: Ibuprofen (Ibuprofen 800 Mg Tab) 800 mg PO Q8H PRN PRN Reason: Pain Stop: 01/09/21 22:14 Miscellaneous ((Solifenacin [Vesicare] 5 Mg: Order Awaiting Action) 1 ea N/A QS [facility] Stop: 01/10/21 07:59 Last Admin: 12/11/20 07:20 Dose: Not Given Documented by: Pantoprazole Sodium (Pantoprazole 40 Mg Tab) 40 mg PO [facility] Stop: 01/10/21 08:59 Last Admin: 12/11/20 07:23 Dose: 40 mg Documented by: Phenytoin Sodium (Phenytoin Sodium Er 100 Mg Cap) 200 mg PO [facility] Stop: 01/10/21 08:59 Last Admin: 12/11/20 07:23 Dose: 200 mg Documented by: Phenytoin Sodium (Phenytoin Sodium Er 100 Mg Cap) 300 mg PO HS [facility] Stop: 01/09/21 22:29 Last Admin: 12/10/20 22:47 Dose: 300 mg Documented by: Polyethylene Glycol (Polyethylene (Miralax) 17 Gm Pack) 17 gm PO DAILY PRN PRN Reason: Constipation Stop: 01/09/21 22:14 Tamsulosin HCl (Tamsulosin Hcl 0.4 Mg Cap) 0.4 mg PO DAILY [facility] Stop: 01/10/21 08:59 Last Admin: 12/11/20 07:23 Dose: 0.4 mg Documented by: Valsartan (Valsartan 80 Mg Tab) 160 mg PO QAM [facility] Stop: 01/10/21 08:59 Last Admin: 12/11/20 07:23 Dose: 160 mg Documented by: PG Care Time/CCT Total # of Minutes Spent Total Time Spent with Patient: Total time spent is greater than 50% in coordination of care (as documented) at patient's floor/unit and/or counseling patient: Coding Level of Care Code 80152 Inpt Consult Level 5 Diagnoses Atrial flutter with rapid ventricular response I48.92 Hypertension I10 Hypertension type: unspecified (1) Hypertension Hypertension type: unspecified Qualified Code(s): I10 - Essential (primary) hypertension
[2020-12-11 07:42] LABS: Partial Thromboplastin Ratio 1.7; Partial Thromboplastin Time 44.8 Seconds (21.0-31.0)
[2020-12-11 08:08] LABS: Albumin Level 3.4 gm/dl (3.4-5.0); BUN Creatinine Ratio 18.8 (10-20); Calcium 8.9 mg/dl (8.5-10.1); Creatinine Clr Calc Pharmacy 153.6 ml/min; Est GFR (African American) 113.9; Est GFR (Non-African American) 98.3; Potassium 3.8 mmol/L (3.5-5.1)
[2020-12-11 08:11] LABS: Bilirubin,Total 0.3 mg/dl (0.2-1); Globulin 3.4 gm/dl (2.5-4.0); Total Protein 6.8 gm/dl (6.4-8.2)
--- NOTE | 2020-12-11 08:53 | XCELERA ---
[id number]
[2020-12-11] MEDS ORDERED: hydroCHLOROthiazide 25 MG TAB PO SCH (09:00)
[2020-12-11] MEDS ORDERED: METOPROLOL TARTRATE 1 MG/ML VIAL IV STA ×2 (09:00→12:25)
[2020-12-11] MEDS ORDERED: VALSARTAN 80 MG TAB PO SCH (09:00)
--- NOTE | 2020-12-11 10:15 | Hospitalist Progress Note ---
Date of Service December 11, 2020 Assessment & Plan (1) Atrial flutter with rapid ventricular response: 60 yo M with no history of underlying heart disease who was admitted for tachycardia w/ palpitation found to be in atrial flutter. New onset A. flutter - CTA chest on admission showing evidence of segmental and subsegmental RU/RL lobe chronic PE; no acute emboli. B/l lower extremity duplex negative for DVT. - Mag 2.0. TSH normal. - Echo ordered, structurally normal heart - etiology uncertain - possible stress/caffeine induced? recommend sleep study as an outpatient to assess for possible underlying CHUYITA - current rate control regimen: Diltiazem 30 mg PO Q6H, Lopressor 10mg IV q4, Diltiazem 10 mg Q4H PRN for HR >110. Goal HR < 110bpm. Consider diltiazem drip if HR is above goal or frequent prn doses of diltiazem are necessary. - cardiology consulted: recommending ablation (likely tomorrow 12/12) - currently on heparin drip - CHADSVASC2 1 - had long discussion with patient regarding consideration for fpc anticoagulation. He falls into a whaley area considering his score of 1 - given that he is borderline to begin with, and will likely be rid of Aflutter for a least several years after his ablation (assuming this procedure is successful)- this is certainly a debatable question. At age 66 his score will increase to 2. Report of developing a DVT after his knee surgery in 2012 despite proper prophylaxis with Lovenox may suggest patient has propensity to be hyperco agulable. We will ask cardiology to weigh on on this discussion HTN - continue Valsartan and HCTZ Anxiety - continue Wellbutrin, buspirone, Lexapro Hx Seizures - apparently suffered 2 seizures in 1996 - continue home dose Dilantin Osteoarthritis - continue Ibuprofen BPH - continue Finasteride DVT prophylaxis: Heparin drip Diet: regular; NPO at midnight in anticipation of upcoming procedure Code: full code Dispo: PCU Admission and Anticipated Discharge Date Admission Date: December 10, 2020 Supervising Physician Co-Signing Physician Notes I personally examined the patient and verified all serra points of history and exam, discussed case, and agree with decision making with Dr Araya. Feeling okay. Expresses good understanding of his diagnosis and plan. No new complaints. Appreciative care thus far. Vitals noted, in general he is awake and alert pleasant no distress. HEENT normocephalic atraumatic mucous membranes moist. Breathing unlabored no accessory muscle use good effort. Cardio shows a flutter with rates now around 95-110 on the monitor. New onset a flutteroutpatient sleep study to evaluate for undiagnosed sleep apnea as a possible underlying provoking etiology. Otherwise rate control for now, given that he is young and this is flutter, and agree with cardiology plans for rhythm control, continue heparin drip for now. Otherwise as above. Subjective No chest pain or SOB on exam. Did recount some palpitations on the day [employer] OUT [employer] - however if it wasn't for this watch notifying him of tachycardia, he probably wouldn't have thought much of it. Denies history of arrhythmia. He did have a DVT in 2012- this occurred after he had a L knee reconstruction and was immobile for 3 months (however he was on Lovenox for prophylaxis). He denies any recent illness - no illicit substance use. Does endorse increased stress and caffeine consumption. No known history of sleep apnea - says he does not snore. Never had a sleep study Review of Systems Review of Systems: All systems reviewed & are unremarkable except as noted in HPI & below Physical Exam Constitutional: WD/WN, vitals as above + obese and cooperative; no acute distress Eyes: + anicteric sclerae ENMT: external ear and nose normal, oropharynx normal Neck: trachea midline and + tracheal deviation Respiratory: normal respiratory effort, lungs clear to auscultation Cardiovascular: Rate/Rhythm: regular rhythm and + tachycardic Heart Sounds: normal S1 and normal S2 Gastrointestinal (Abdomen): normal bowel sounds, soft, nontender, no hepatosplenomegaly Skin: no rashes, warm and dry Psychiatric: A+Ox3, euthymic affect Results & Data Results & Data ([facility]) Vital Signs (Past 12 Hours) Vital Signs Temp Pulse Pulse Resp BP BP Pulse Ox 12/11/20 07:00 36.8 C 132 H 20 128/89 95 12/11/20 03:45 36.6 C 99 H 20 126/75 93 12/10/20 22:37 36.6 C 116 H 18 143/100 H 97 Resident Activity Tracking Resident Involvement: Resident Care Provided Care Provided: Adult [facility]
[2020-12-11] MEDS: HEPARIN SODIUM/DEXTROSE 25,000 UNITS/500 ML BAG IV SCH (13:06)
[2020-12-11] MEDS: METOPROLOL TARTRATE 1 MG/ML VIAL IV SCH ×3 (14:03→22:07)
[2020-12-11] MEDS ORDERED: MELATONIN 3 MG TAB PO PRN (14:36)
[2020-12-11 14:40] LABS: Partial Thromboplastin Time 53.5 Seconds (21.0-31.0)
--- NOTE | 2020-12-11 16:02 | Billing Data ---
Date of Service December 11, 2020 Coding Level of Care Code 53716 Subseq Hosp Care Lvl 3
[2020-12-11] MEDS ORDERED: ONDANSETRON INJ 2 MG/ML 2 ML VIAL IV PRN (16:48)
--- NOTE | 2020-12-11 21:59 | Billing Data ---
Date of Service December 11, 2020 Coding Level of Care Code 43943 Initial Inpt Care Lvl 3
[2020-12-12] MEDS: dilTIAZem HCL 30 MG TAB PO SCH ×3 (00:32→13:51)
[2020-12-12] MEDS: HEPARIN SODIUM/DEXTROSE 25,000 UNITS/500 ML BAG IV SCH ×4 (02:40→13:54)
[2020-12-12] MEDS: METOPROLOL TARTRATE 1 MG/ML VIAL IV SCH ×4 (02:50→14:19)
--- NOTE | 2020-12-12 05:45 | Electrocardiogram Report ---
Test Reason : Blood Pressure : / mmHG Vent. Rate : 126 BPM Atrial Rate : 126 BPM P-R Int : 190 ms QRS Dur : 094 ms QT Int : 264 ms P-R-T Axes : 074 -15 043 degrees QTc Int : 382 ms Atrial flutter with 2 to 1 block Inferior infarct Abnormal ECG When compared with ECG of 30-JUN-2019 09:55, Vent. rate has increased BY 57 BPM Atrial flutter has replaced Sinus rhythm QRS duration has decreased Inferior infarct is now Present Confirmed by Mitchell Martinez ([id number]) on 12/12/2020 5:45:09 AM Referred By: Garrett Winston Confirmed By:Mitchell Martinez
--- NOTE | 2020-12-12 05:47 | Electrocardiogram Report ---
Test Reason : Blood Pressure : / mmHG Vent. Rate : 091 BPM Atrial Rate : 249 BPM P-R Int : 000 ms QRS Dur : 114 ms QT Int : 370 ms P-R-T Axes : 000 -18 018 degrees QTc Int : 455 ms Atrial flutter with variable A-V block Abnormal ECG When compared with ECG of 10-DEC-2020 17:23, HR has decreased by 35 bpm Confirmed by Mitchell Martinez ([id number]) on 12/12/2020 5:46:55 AM Referred By: Garrett Winston Confirmed By:Mitchell Martinez
[2020-12-12 07:13] LABS: Partial Thromboplastin Ratio 2.7
[2020-12-12 07:22] LABS: Partial Thromboplastin Time 70.7 Seconds (21.0-31.0)
[2020-12-12] MEDS: busPIRone 15 MG TAB PO SCH (07:57)
[2020-12-12] MEDS: PHENYTOIN SODIUM ER 100 MG CAP PO SCH (07:58)
[2020-12-12] MEDS: buPROPion XL 150 MG TABCR PO SCH (07:58)
[2020-12-12] MEDS: PANTOprazole 40 MG TAB PO SCH (07:58)
[2020-12-12] MEDS: FINASTERIDE 5 MG TAB PO SCH (07:58)
[2020-12-12] MEDS: ESCITALOPRAM OXALATE 20 MG TAB PO SCH (07:58)
[2020-12-12] MEDS: TAMSULOSIN HCL 0.4 MG CAP PO SCH (08:50)
[2020-12-12] MEDS ORDERED: MIDAZOLAM HCL 5 MG/ML 1 ML VIAL ONE ×2 (09:55→10:59)
[2020-12-12] MEDS ORDERED: LIDOCAINE HCL 1% 20 ML VIAL ONE (09:55)
[2020-12-12] MEDS ORDERED: fentaNYL citrate 100 MCG/2 ML VIAL ONE ×2 (09:55→10:59)
--- NOTE | 2020-12-12 10:15 | Pre Anesthesia Assessment ---
Date of Service December 12, 2020 Pre Sedation Assessment Vital Signs Temp Pulse Pulse Resp BP BP BP 12/12/20 08:28 137 H 12/12/20 07:42 36.9 C 90 16 101/72 12/12/20 06:37 138 H 112/65 12/12/20 02:47 101/55 L 12/12/20 02:45 36.7 C 109 H 85/61 L 12/11/20 23:49 36.7 C 86 18 98/60 L 12/11/20 22:07 114 H 109/80 12/11/20 19:29 37.2 C 103 H 18 117/88 12/11/20 18:14 91 H 113/75 12/11/20 15:39 36.8 C 106 H 18 135/83 12/11/20 14:36 105 H 12/11/20 11:00 36.9 C 128 H 20 113/82 Pulse Ox 12/12/20 08:28 12/12/20 07:42 94 12/12/20 06:37 12/12/20 02:47 12/12/20 02:45 92 12/11/20 23:49 93 12/11/20 22:07 12/11/20 19:29 95 12/11/20 18:14 12/11/20 15:39 94 12/11/20 14:36 12/11/20 11:00 95 Cardiovascular + tachycardic and + irregularly irregular Respiratory + respiratory effort normal Pre-Sedation Airway Assessment Smoking Status: Never smoker Hx Sleep Apnea: No Hx Difficult Intubation: No Short, Thick Neck: No Thyromental Distance: > or= 3.5 Finger Breadths Oral Cavity: + WNL Mallampati Class: III ASA: ASA3 NPO Status Date of Last Intake of Fluids: 12/11/20 Date of Last Intake of Solid Food: 12/11/20 Procedure Planning Contraindications for Sedation: none Current Medications Reviewed: Yes Notes The planned sedation has been discussed with the patient. Informed Consent was obtained. I have identified the patient, determined the appropriateness of sedation and have assessed the patient immediately prior to the procedure. All medicine(s) and interventions are by my order.
--- NOTE | 2020-12-12 10:22 | Hospitalist Progress Note ---
Date of Service December 12, 2020 Assessment & Plan (1) Atrial flutter with rapid ventricular response: 60 yo M with no history of underlying heart disease who was admitted for tachycardia w/ palpitation found to be in atrial flutter. New onset A. flutter - undergoing ablation today with Dr. Zavala from cardiology - Mag 2.0. TSH normal. - Echo ordered, structurally normal heart - etiology uncertain - possible stress/caffeine induced? recommend sleep study as an outpatient to assess for possible underlying CHUYITA - current rate control regimen: Diltiazem 30 mg PO Q6H, Lopressor 10mg IV q4, Diltiazem 10 mg Q4H PRN for HR >110. Goal HR < 110bpm. Consider diltiazem drip if HR is above goal or frequent prn doses of diltiazem are necessary. - currently on heparin drip - CHADSVASC2 1 - had discussion with patient regarding consideration for long term care social worker anticoagulation. After discussing with cardiology - not indicated after ablation due to the established success of this procedure in diminishing A- flutter. HTN - continue Valsartan and HCTZ Anxiety - continue Wellbutrin, buspirone, Lexapro Hx Seizures - apparently suffered 2 seizures in 1996 - continue home dose Dilantin Osteoarthritis - continue Ibuprofen BPH - continue Finasteride DVT prophylaxis: Heparin drip Diet: regular Code: full code Dispo: PCU Admission and Anticipated Discharge Date Admission Date: December 10, 2020 Supervising Physician Co-Signing Physician Notes I personally examined the patient and verified all serra points of history and exam, discussed case, and agree with decision making with Dr Araya. For ablation later this afternoon. No complaints. Vitals noted, in general he is awake and alert pleasant no distress. HEENT normocephalic atraumatic mucous membranes moist. Breathing unlabored no accessory muscle use good effort. Rates showing better control New onset a flutteroutpatient sleep study to evaluate for undiagnosed sleep apnea as a possible underlying provoking etiology. For ablation later today, otherwise per cardiology. Subjective No acute events overnight. HR ranged from 80-120 bpm. No chest pain or SOB. Review of Systems Review of Systems: All systems reviewed & are unremarkable except as noted in HPI & below Physical Exam Constitutional: WD/WN, vitals as above + obese and cooperative; no acute distress Eyes: + anicteric sclerae ENMT: external ear and nose normal, oropharynx normal Neck: trachea midline and + tracheal deviation Respiratory: normal respiratory effort, lungs clear to auscultation Cardiovascular: Rate/Rhythm: regular rhythm and + tachycardic Heart Sounds: normal S1 and normal S2 Gastrointestinal (Abdomen): normal bowel sounds, soft, nontender, no hepatosplenomegaly Skin: no rashes, warm and dry Psychiatric: A+Ox3, euthymic affect Results & Data Results & Data ([facility]) Vital Signs (Past 12 Hours) Vital Signs Temp Pulse Pulse Resp BP BP Pulse Ox 12/12/20 08:28 137 H 12/12/20 07:42 36.9 C 90 16 101/72 94 12/12/20 06:37 138 H 112/65 12/12/20 02:47 101/55 L 12/12/20 02:45 36.7 C 109 H 85/61 L 92 12/11/20 23:49 36.7 C 86 18 98/60 L 93 Resident Activity Tracking Resident Involvement: Resident Care Provided Care Provided: Adult Hospital Medicine
[2020-12-12] MEDS ORDERED: ACETAMINOPHEN 325 MG TAB PO PRN (11:48)
[2020-12-12] MEDS ORDERED: oxyCODONE HCL IR 5 MG TAB (IMMEDIATE RELEASE) PO PRN (11:48)
--- NOTE | 2020-12-12 11:48 | Electrophysiology Report ---
Date of Service December 12, 2020 Electrophysiology Procedure Electrophysiology Procedure Report Procedure performed: Ablation of SVT, complete electrophysiologic testing including pacing of the left atrium via the coronary sinus, programmed stimulation for arrhythmia induction, three-dimensional electroanatomical mapping Staff ase certified technician: Jefferson Zavala MD Indication: The patient is a 60-year-old gentleman who presented to the hospital with symptomatic tachycardia. He was discovered to be in atrial flutter. We discussed options for treatment he elected to undergo electrophysiologic testing and possible ablation of what appears to be a typical right atrial flutter. Procedure in detail: The patient was informed of the risk benefits and alternatives to the intended procedure. He understood and wished to proceed. He was brought to the electrophysiology suite in a fasting state. Conscious sedation was administered per protocol and the patient was monitored electrocardiographically throughout today's procedure. The right femoral area was prepped and draped in usual sterile fashion. This area was anesthetized using subcutaneous ministration of a lidocaine and Marcaine solution. The right femoral vein was accessed 3 times using modified Seldinger technique and sheaths were placed over guidewires at this site. The sheaths were used to facilitate passage of the EP catheters to the respective chambers under fluoroscopic guidance. This included right v entricular, coronary sinus and roving mapping catheter. The patient's baseline tachycardia was mapped using a three-dimensional electroanatomical mapping system. Pacemaker was also employed in order to identify the mechanism of the tachycardia. Once identified, a radiofrequency ablation catheter was advanced to the cavotricuspid isthmus and linear lesions were placed in a power limited mode. This terminated the tachycardia. Baseline conduction was measured. Electrophysiologic testing including programmed stimulation and burst atrial pacing and attempts to induce the tachycardia were then performed. Repeat electro anatomical mapping with pacing from both the medial and lateral portions of the cavotricuspid isthmus were then performed in order to evaluate block through the ablation line. At the conclusion of the case the catheters and sheaths were removed. Hemostasis was achieved at the access site using manual pressure. The patient tolerated procedure well. There were no immediate complications. Findings: Baseline intracardiac intervals Tachycardia cycle length 230 ms Pacing from the proximal coronary sinus revealed concealed entrainment with a short post pacing interval Pacing from the lateral left atrium via the coronary sinus produced a different activation profile and a long post pacing interval Ablation An 8 [place] 4 mm irrigated contact force radioablation catheter was advanced to the cavotricuspid isthmus and radiofrequency lesions were placed in a linear fashion. This terminated the tachycardia. Repeat lesions were placed until bidirectional block to the cavotricuspid isthmus could be confirmed. Subsequent to ablation burst atrial pacing from the medial and lateral aspects of the cavotricuspid isthmus down to cycle length of 240 ms were performed. No tachycardia was inducible. Programmed stimulation from the atrium did reveal dual AV ricarod physiology. There was a single echo beat. No additional echo beats or inducible tachycardia. Post ablation intervals: Cycle length in the atrium 967 ms Cycle length in the ventricle 963 ms AL interval 181 ms QRS duration 106 ms QT interval 345 ms AH interval 108 ms HV interval 39 ms AV Wenckebach occurred at 420 ms Effective refractory period of the fast pathway was 370 ms Effective refractory period of the slow pathway was 290 ms Impression: Typical isthmus dependent right atrial flutter Creation of bidirectional block through the caval tricuspid isthmus rendering atrial flutter noninducible Brief episodes of an ectopic atrial rhythm Dual AV ricardo physiology with single echo beat Otherwise normal baseline conduction intervals with poor retrograde conduction No evidence of a sensory pathway conduction [facility] Electrophysiology codes EP Procedure 1: Electrophysiology: 00515 EPS and Ablation SVT Procedure 2: Electrophysiology: 65966 3D mapping Procedure 3: Electrophysiology: 43779-20 Comp EPS w/LA pacing Procedure 4: Electrophysiology: 46324 Arrhythmia induction PG Moderate Sedation Codes Moderate Sedation Codes Procedure 1: Sedation/Anesthesia: 35888 Mod Sedation by the same physician;Init15 Min Child Age 5 & Up Procedure 2: Sedation/Anesthesia: 71941 Mod Sedation by the same physician; Ea [id number] Minutes
--- NOTE | 2020-12-12 11:48 | Post Anesthesia Assessment ---
Date of Service December 12, 2020 Post Sedation Assessment Vital Signs Temp Pulse Pulse Resp BP BP BP 12/12/20 08:28 137 H 12/12/20 07:42 36.9 C 90 16 101/72 12/12/20 06:37 138 H 112/65 12/12/20 02:47 101/55 L 12/12/20 02:45 36.7 C 109 H 85/61 L 12/11/20 23:49 36.7 C 86 18 98/60 L 12/11/20 22:07 114 H 109/80 12/11/20 19:29 37.2 C 103 H 18 117/88 12/11/20 18:14 91 H 113/75 12/11/20 15:39 36.8 C 106 H 18 135/83 12/11/20 14:36 105 H Pulse Ox 12/12/20 08:28 12/12/20 07:42 94 12/12/20 06:37 12/12/20 02:47 12/12/20 02:45 92 12/11/20 23:49 93 12/11/20 22:07 12/11/20 19:29 95 12/11/20 18:14 12/11/20 15:39 94 12/11/20 14:36 Recovery Score Activity: Moves 4 extremities Respiration: Deep Breath/Cough Circulation: +/-20% PreAnes Value Consciousness: Arouseable (by name) Oxygen Saturation: > 92% On Room Air Discharge Sedation Level of Care: Fast Track Phase II Post Sedation Plan On clinical assessment, the patient appears to have tolerated the sedation without complications. Patient is recovering as anticipated. Patient will continue to be monitored by nursing and may be discharged when sedation discharge criteria are met per below protocol. Upon Completions of procedure up to 15 minutes continue every 5 minute vital signs and the P.A.R. score; then discharge to a Phase I or Fast Track to Phase II per the following guidelines: * Discharge Patient to appropriate Phase II area if PAR is 8 or greater or return to pre- procedure baseline. The post - procedure orders will be as directed. * If PAR score is less than 8 or not return to pre-procedure baseline then patient will follow Phase I monitoring till PAR is reached for Phase II. The Phase I may be done in procedure room or may call to secure a Phase I area. * If naloxone or flumazenil are used for reversal, hold in Phase I for continued monitoring from when last reversal dose was given for a minimum of 60 minutes or longer pending the nurse and/or physician discretion of patient condition before discharge to Phase II. Please call the Sedation Physician to re-evaluate and complete post-note for discharge to Phase II area. Do NOT discharge from procedure sedation or Phase 1 until post- sedation evaluation note is complete by procedure /sedation MD Sedation Discharge Instructions to be given to the patient at discharge to home.
[2020-12-12 13:42] LABS: Partial Thromboplastin Ratio 0.9; Partial Thromboplastin Time 23.9 Seconds (21.0-31.0)
--- NOTE | 2020-12-12 14:03 | Cardiology Progress Note ---
Date of Service December 12, 2020 Assessment & Plan (1) Atrial flutter with rapid ventricular response: (2) Hypertension: ASSESSMENT/PLAN: 1. Atrial flutter s/p ablation: Successful atrial flutter ablation earlier today. Tolerated the procedure well. Has remained in sinus rhythm. Recommend anticoagulation therapy as per electrophysiology, for approximately 4 weeks. He will be re-evaluated in the cardiology office by Dr. Zavala near that time with the possibility of anticoagulation therapy being discontinued if no further atrial flutter. Speaking with Mr. Alvarenga, he would like to use Eliquis (5 mg p.o. b.i.d). 2. Hypertension: Blood pressure has been low-normal throughout the day following the procedure. Can be discharged home on his usual outpatient regimen. 3. Disposition: Possible discharge later today if no issues from his access site as the day progresses. Patient care discussed with Drs. Zavala and Luther. Follow-up with Dr. Zavala as per his instruction. Admission and Anticipated Discharge Date Admission Date: December 10, 2020 Subjective Patient was seen this afternoon. He underwent atrial flutter ablation earlier today by Dr. Zavala. Atrial flutter was successfully ablated and he has been in sinus rhythm on telemetry. He has not had any further palpitations. He denies chest pain, shortness of breath, syncope, near-syncope, or bleeding. He has not had any significant issues with his right femoral venous access site. Review of systems: As above. Physical Exam Physical Exam: Gen.: No acute distress. Alert and oriented. HEENT: Anicteric sclera. Neck: Thick neck. Cardiac: No ventricular heave. Regular. Normal S1-S2. No murmurs, rubs, or gallops. Pulmonary: Clear to auscultation bilaterally without wheezes, rales, or rhonchi. Abdomen: Soft, nontender, nondistended, with normoactive bowel sounds. No bruits noted. Extremities: 2+ radial pulses bilaterally. 2+ posterior tibialis pulses bilaterally. Right femoral venous access site was clean, dry, and intact without erythema, discharge, or hematoma. No significant pitting edema. No cyanosis. Psychiatric: Affect appears appropriate. Results & Data ([facility]) Vital Signs (Past 12 Hours) Vital Signs Temp Pulse Pulse Pulse Resp BP BP 12/12/20 13:33 36.5 C 73 18 102/72 02/18/21 13:03 36.5 C 68 18 104/74 12/12/20 13:00 36.4 C L 74 20 102/70 12/12/20 12:45 36.5 C 77 20 109/76 12/12/20 12:44 81 12/12/20 12:33 36.7 C 77 20 109/76 12/12/20 12:20 72 18 101/76 12/12/20 12:05 73 18 104/71 12/12/20 08:28 137 H 12/12/20 07:42 36.9 C 90 16 101/72 12/12/20 06:37 138 H 112/65 12/12/20 02:47 101/55 L 12/12/20 02:45 36.7 C 109 H 85/61 L Pulse Ox 12/12/20 13:33 97 12/12/20 13:03 98 12/12/20 13:00 95 12/12/20 12:45 93 12/12/20 12:44 12/12/20 12:33 94 12/12/20 12:20 92 12/12/20 12:05 95 12/12/20 08:28 12/12/20 07:42 94 12/12/20 06:37 12/12/20 02:47 12/12/20 02:45 92 Laboratory Results Laboratory Results - last 24 hr 12/11/20 12/12/20 12/12/20 13:59 06:15 13:15 APTT 53.5 H* 70.7 H* 23.9 PTT Ratio 2.0 2.7 0.9 Diagnostic Findings Telemetry personally reviewed: Atrial flutter prior to EP study and ablation. Since then, sinus rhythm. Ablation report reviewed from 12/12/2020: Typical isthmus dependent right atrial flutter. Creation of bidirectional block through the caval tricuspid isthmus rendering atrial flutter non inducible. Brief episodes of ectopic atrial rhythm. Dual AV ricardo physiology with single echo beat. Medications Administered Current Inpatient Medications Acetaminophen (Acetaminophen 325 Mg Tab) 650 mg PO Q4H PRN PRN Reason: Pain Stop: 01/11/21 11:47 Bupropion HCl (Bupropion Xl 150 Mg Tabcr) 150 mg PO QAM FELISHA Stop: 01/10/21 08:59 Last Admin: 12/12/20 07:58 Dose: 150 mg Documented by: Buspirone HCl (Buspirone 15 Mg Tab) 15 mg PO BID [facility] Stop: 01/09/21 22:29 Last Admin: 12/12/20 07:57 Dose: 15 mg Documented by: Diltiazem HCl (Diltiazem Hcl 30 Mg Tab) 30 mg PO Q6 FELISHA Stop: 01/09/21 22:29 Last Admin: 12/12/20 13:51 Dose: Not Given Documented by: Diltiazem HCl (Diltiazem Hcl 5 Mg/Ml 5 Ml Vial) 10 mg IV Q4H PRN PRN Reason: HR > 110 Stop: 01/09/21 22:14 Last Admin: 12/11/20 07:53 Dose: 10 mg Documented by: Escitalopram Oxalate (Escitalopram Oxalate 20 Mg Tab) 20 mg PO QAM [facility] Stop: 01/10/21 08:59 Last Admin: 12/12/20 07:58 Dose: 20 mg Documented by: Finasteride (Finasteride 5 Mg Tab) 5 mg PO DAILY [facility] Stop: 01/10/21 08:59 Last Admin: 12/12/20 07:58 Dose: 5 mg Documented by: Hydrochlorothiazide (Hydrochlorothiazide 25 Mg Tab) 25 mg PO QAM [facility] Stop: 01/10/21 08:59 Last Admin: 12/11/20 07:23 Dose: 25 mg Documented by: Ibuprofen (Ibuprofen 800 Mg Tab) 800 mg PO Q8H PRN PRN Reason: Pain Stop: 01/09/21 22:14 Melatonin (Melatonin 3 Mg Tab) 3 mg PO HS PRN PRN Reason: Sleep Stop: 01/10/21 14:35 Metoprolol Tartrate (Metoprolol Tartrate 1 Mg/Ml Vial) 10 mg IV Q4H [facility] Stop: 01/10/21 13:59 Last Admin: 12/12/20 10:05 Dose: Not Given Documented by: Miscellaneous ((Solifenacin [Vesicare] 5 Mg: Order Awaiting Action) 1 ea N/A QS [facility] Stop: 01/10/21 07:59 Last Admin: 12/12/20 07:10 Dose: Not Given Documented by: Ondansetron HCl (Ondansetron Inj 2 Mg/Ml 2 Ml Vial) 4 mg IV Q6H PRN PRN Reason: Nausea And Vomiting Stop: 01/10/21 16:47 Oxycodone HCl (Oxycodone Hcl Ir 5 Mg Tab (Immediate Release)) 5 mg PO Q4 PRN PRN Reason: Pain Stop: 12/26/20 11:47 Pantoprazole Sodium (Pantoprazole 40 Mg Tab) [facility] Stop: 01/10/21 08:59 Last Admin: 12/12/20 07:58 Dose: 40 mg Documented by: Phenytoin Sodium (Phenytoin Sodium Er 100 Mg Cap) 200 mg PO QAM [facility] Stop: 01/10/21 08:59 Last Admin: 12/12/20 07:58 Dose: 200 mg Documented by: Phenytoin Sodium (Phenytoin Sodium Er 100 Mg Cap) 300 mg PO [facility] Stop: 01/09/21 22:29 Last Admin: 12/11/20 22:06 Dose: 300 mg Documented by: Polyethylene Glycol (Polyethylene (Miralax) 17 Gm Pack) 17 gm PO DAILY PRN PRN Reason: Constipation Stop: 01/09/21 22:14 Tamsulosin HCl (Tamsulosin Hcl 0.4 Mg Cap) 0.4 mg PO DAILY [facility] Stop: 01/10/21 08:59 Last Admin: 12/12/20 08:50 Dose: 0.4 mg Documented by: Valsartan (Valsartan 80 Mg Tab) 160 mg PO [facility] Stop: 01/10/21 08:59 Last Admin: 12/11/20 07:23 Dose: 160 mg Documented by: PG Care Time/CCT Total # of Minutes Spent Total Time Spent with Patient: Total time spent is greater than 50% in coordination of care (as documented) at patient's floor/unit and/or counseling patient: Coding Level of Care Code 31735 Subseq Hosp Care Lvl 3 Diagnoses Atrial flutter with rapid ventricular response I48.92 Hypertension I10 Hypertension type: unspecified (1) Hypertension Hypertension type: unspecified Qualified Code(s): I10 - Essential (primary) hypertension
--- NOTE | 2020-12-12 17:28 | Discharge Summary ---
Date of Service December 12, 2020 Admission HPI Per Admitting Provider Andrew Alvarenga is a 60 yo M here with tachycardia. He has a past medical history of Anxiety, BPH, DVT/PE s/p surgery 2012 (1yr. warfarin), HTN, OA, Seizures X2 in 1996. He woke up early this morning but did not go in to work since the roads were icy. He was notified by his 5th generation apple watch that he had a tachycardic heart rate. He had a pulse oximeter and noted that he had a rate 124-132 throughout the day. He felt palpitations with a pounding of his chest that lasted 30 seconds three times in the day. He has no known cardiac issues, no prior a. fib or a. flutter. He saw his PCP vis telehealth and after getting an EKG was sent to the ER. He has been drinking more fluids lately. He has been exercising less lately but no other new changes that he can think of lately. He works as a pharmacist at [employer]. No tobacco, ETOH, or recreational drug use. ED course: IV Metoptolol, 500ml IVF Admission Exam Per Admitting Provider Physical Exam: Constitutional: WD/WN, vitals as above Eyes: PERRL, conjunctivae normal, anicteric sclerae ENMT: external ear and nose normal, oropharynx normal Neck: normal visual inspection Thyroid: normal thyroid Respiratory: normal respiratory effort, lungs clear to auscultation Cardiovascular: - tachycardia w/o m/r/g Chest (Breasts): normal inspection/palpation of breasts Gastrointestinal (Abdomen): normal bowel sounds, soft, nontender, no hepatosplenomegaly Musculoskeletal: - 2+ pitting edema in lower extremity L>R Skin: no rashes, warm and dry Neurologic: normal touch/pain/proprioception Psychiatric: A+Ox3, euthymic affect Principal Diagnosis Atrial Flutter Discharge Exam Constitutional WD/WN, vitals as above + obese and cooperative; no acute distress Eyes + anicteric sclerae ENMT external ear and nose normal, oropharynx normal Neck trachea midline and + tracheal deviation Respiratory normal respiratory effort, lungs clear to auscultation Cardiovascular Rate/Rhythm: regular rhythm and + tachycardic Heart Sounds: normal S1 and normal S2 Gastrointestinal (Abdomen) normal bowel sounds, soft, nontender, no hepatosplenomegaly Skin no rashes, warm and dry Psychiatric A+Ox3, euthymic affect Discharge Data Allergies Allergy/AdvReac Type Severity Reaction Status Date / Time etodolac Allergy Unknown Hives and Verified 12/10/20 18:32 rash nickel Allergy Unknown Rash Verified 12/10/20 18:32 Consultations 12/10/20 19:33 ED Decision to Admit Stat 12/10/20 22:15 Consult Cardiology Routine Procedures Performed Operation Date: 12/12/20 11:00 Actual Procedures p 3D Mapping (Carto) - Martin Zavala MD p EPS + Ablation for SVT Flutter - Martin Zavala MD s LA Pacing (Add-On) - Martin Zavala MD Ordered Studies 12/10/20 18:02 CT angio chest PE protocol Stat 12/10/20 22:57 US venous doppler LE BI Routine 12/12/20 09:15 EP Lab Images for PACS ONCE Hospital Course (1) Atrial flutter with rapid ventricular response: 60 yo M with no history of underlying heart disease who was admitted for tachycardia w/ palpitation, found to be in atrial flutter. New onset A. flutter with RVR - On arrival, patient was placed on a heparin drip for anticoagulation. He was initially started on scheduled diltiazem and lopressor for rate control. - patient underwent ablation today with Dr. Zavala from cardiology. The procedure went well without complication. - Mag 2.0. TSH normal. Echo ordered, structurally normal heart - etiology uncertain - possible stress/caffeine induced? recommend sleep study as an outpatient to assess for possible underlying CHUYITA - per cardiology, patient will remain on anticoagulation (Xarelto) for next 4 weeks. After this, it will likely be discontinued. - follow up with Dr. Zavala arranged for 1 month Outpatient items to do: Order home sleep study. Discuss weight loss. HTN - continue Valsartan and HCTZ Anxiety - continue Wellbutrin, buspirone, Lexapro Hx Seizures - apparently suffered 2 seizures in 1996 - continue home dose Dilantin Osteoarthritis - continue Ibuprofen BPH - continue Finasteride Total Time Total Time Spent Total Time Spent (In Minutes): see attending attestation Discharge Plan Discharge Items Patient Disposition: Home - Self-Care Reason For Visit: TACHYCARDIA Discharge Diagnosis: Atrial Flutter Condition on Discharge: Good Activity: Per Instructions section Activity Comment: Do not lift more than 10 pounds in the next 5 days. Non-emergency contact: Primary Care Provider and Cmm Inspector Call non-emergency contact if: your symptoms worsen Follow-up/Referrals: Garrett Winston [Primary Care Provider] - Diet: Heart Healthy Addtl Attending Provider Instructions: You were admitted to [facility] for an elevated HR. You were found to be in an irregular rhythm known as atrial flutter - which is similar to atrial fibrillation. It is a rapid, disorganized rhythm originating from aberrant electrical conductivity in the atria (or upper chambers of your heart). Cardiology was consulted and recommended an ablation procedure, which you had today. The procedure went well without any complications. Hopefully, this will offer long-lasting protection from A-flutter. You will need to be on a blood thinner, Xarelto, for the next 4 weeks. This is because of the increased risk of forming an embolism from the ablation procedure. Please follow-up with Dr. Zavala in the office in 1 month time. He will direct you on when to stop the Xarelto. Activity Restrictions: For the next 5 days, do not lift more than 10 pounds. As for the cause of your heart arrhythmia - we found no abnormalities of your electrolytes or thyroid function. We also ordered an echocardiogram on your heart, which showed no structural abnormalities. We would recommend having a sleep study as an outpatient to assess for obstructive sleep apnea - as this is a common cause of atrial flutter/atrial fibrillation. Pending Studies at Discharge: No Stand-Alone Forms: My [facility], Work/School Release (Inpt), Smoking Cessation Medications and DC Order Prescriptions: New Xarelto 20 mg tablet 20 mg PO DAILY Qty: 30 RF: 0 Continued tamsulosin 0.4 mg capsule 0.4 mg PO DAILY Qty: 90 RF: 3 finasteride 5 mg tablet 5 mg PO DAILY Qty: 90 RF: 3 solifenacin [Vesicare] 5 mg tablet 5 mg PO DAILY Qty: 90 RF: 3 celecoxib [Celebrex] 200 mg Capsule 200 mg PO QAM PRN (Reason: Pain) RF: 0 phenytoin sodium extended [Dilantin Extended] 100 mg Capsule 200 mg PO QAM RF: 0 phenytoin sodium extended [Dilantin Extended] 100 mg Capsule 300 mg PO HS RF: 0 esomeprazole magnesium [Nexium] 40 mg Capsule,Delayed Release(Dr/Ec) 40 mg PO QAM RF: 0 buspirone 15 mg Tablet 15 mg PO BID RF: 0 valsartan-hydrochlorothiazide [Diovan HCT] 160-25 mg Tablet 1 tab PO QAM RF: 0 escitalopram oxalate [Lexapro] 20 mg Tablet 20 mg PO QAM RF: 0 bupropion HCl [Wellbutrin XL] 150 mg Tablet Extended Release 24 Hr 150 mg PO QAM RF: 0 ibuprofen 200 mg Tablet 800 mg PO Q8H PRN (Reason: Pain) RF: 0 cholecalciferol (vitamin D3) [Vitamin D3] 50 mcg (2,000 unit) Capsule 50 mcg PO QAM RF: 0 amoxicillin 500 mg tablet 2,000 mg PO DIRECTED PRN (Reason: Prior to Dental Work) RF: 0 Discharge Orders: Discharge Order (Routine); Ordered 12/12/20 Ordered By: Kayla Araya Admission Data Admit Date/Time: 12/10/20 21:26 Attending Provider: Abdiel Sloan Admit Provider: Nhan Downey Primary Care Provider: Garrett Winston Other Providers: Avel Watts ; Mitchell Martinez Other Interventions: Discharge Summary Assessment (RN) Last Done: 12/12/20 17:24 Supervising Physician Co-Signing Physician Notes I personally examined the patient and verified all serra points of history and exam, discussed case, and agree with decision making with Dr Araya. Vitals noted, in general he is awake and alert pleasant no distress. HEENT normocephalic atraumatic mucous membranes moist. Breathing unlabored no accessory muscle use good effort. New onset a flutteroutpatient sleep study to evaluate for undiagnosed sleep apnea as a possible underlying provoking etiology. post ablation, stable for home, otherwise as above Resident Activity Tracking Resident Involvement: Resident Care Provided Care Provided: Adult Hospital Medicine
--- NOTE | 2020-12-13 06:28 | Electrocardiogram Report ---
Test Reason : Blood Pressure : / mmHG Vent. Rate : 084 BPM Atrial Rate : 084 BPM P-R Int : 208 ms QRS Dur : 106 ms QT Int : 380 ms P-R-T Axes : 000 -28 -20 degrees QTc Int : 449 ms Normal sinus rhythm Incomplete right bundle branch block Inferior infarct , age undetermined Abnormal ECG When compared with ECG of 10-DEC-2020 18:00, Sinus rhythm has replaced Atrial flutter Incomplete right bundle branch block is now Present Inferior infarct is now Present Confirmed by Mitchell Martinez ([id number]) on 12/13/2020 6:28:26 AM Referred By: Garrett Winston Confirmed By:Mitchell Martinez
--- NOTE | 2020-12-13 17:01 | Billing Data ---
Date of Service December 12, 2020 Coding Level of Care Code D/C Day Management <30 mins
== END 2020-12-12 18:36 | disposition home or self-care (01) | DRG 309 ==
LOC: ED 17:13 → 2W 21:26 → SUATTDRO 21:26 → 2W 21:56 → 2S 12-11 14:43

== ENCOUNTER 2024-08-31 06:55 | Observation (INO) ==
--- NOTE | 2024-08-24 08:55 | Anesthesiology Consultation ---
Date of Service August 24, 2024 Assessment & Plan (1) Encounter for pre-operative examination: - Per mangle roller on 08/23/24: No known infectious disease contacts, current infectious disease symptoms in past 10 days or COVID positive test result in the past 30 days. 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 Cut Out the Tumor(s) by Going Through the Urethra. With or Without Multiple Cup Biopsies of the Bladder, Cystoscopy, - Nehemiah Sen MD s Possible TURP (Transurethral Resection of the Prostate) - Nehemiah Sen MD Height/Weight Height: 6 ft 1 in Weight: 132.449 kg Allergies Allergy/AdvReac Type Severity Reaction Status Date / Time etodolac Allergy Unknown Hives and Verified 08/23/24 15:44 rash nickel Allergy Unknown Rash Verified 08/23/24 15:44 Medications Home Medications Medication Instructions Recorded Confirmed Last Taken bupropion HCl 150 mg 24 hr tablet, 150 mg PO QAM 06/27/19 08/23/24 07/20/19 07:00 extended release (Wellbutrin XL) buspirone 15 mg tablet 15 mg PO QAM 06/27/19 08/23/24 07/20/19 07:00 escitalopram oxalate 20 mg tablet 20 mg PO QAM 06/27/19 08/23/24 07/20/19 07:00 (Lexapro) esomeprazole magnesium 40 mg 40 mg PO QAM 06/27/19 08/23/24 07/20/19 07:00 capsule,delayed release (Nexium) phenytoin sodium extended 100 mg 200 mg PO QAM 06/27/19 08/23/24 07/20/19 07:00 capsule (Dilantin Extended) phenytoin sodium extended 100 mg 300 mg PO 06/27/19 08/23/24 07/19/19 22:00 capsule (Dilantin Extended) valsartan 160 1 tab PO QAM 06/27/19 08/23/24 07/19/19 07:00 mg-hydrochlorothiazide 25 mg tablet (Diovan HCT) amoxicillin 500 mg tablet 2,000 mg PO DIRECTED PRN Prior 12/10/20 08/23/24 Unknown to Dental Work cholecalciferol (vitamin D3) 50 50 mcg PO QAM 12/10/20 08/23/24 Unknown mcg (2,000 unit) capsule (Vitamin D3) B-complex with vitamin C 1 tab PO QAM 11/30/23 08/23/24 Unknown colchicine 0.6 mg tablet 0.6 mg PO BID 11/30/23 08/23/24 Unknown diclofenac sodium 75 mg 75 mg PO BID 11/30/23 08/23/24 Unknown tablet,delayed release krill oil 500 mg capsule 500 mg PO QAM 11/30/23 08/23/24 Unknown vitamin E mixed 400 unit capsule 400 unit PO QAM 11/30/23 08/23/24 Unknown zinc acetate 50 mg (zinc) capsule 50 mg PO HS 11/30/23 08/23/24 Unknown apixaban 2.5 mg tablet (Eliquis) 2.5 mg PO BID 08/23/24 08/23/24 Unknown ciprofloxacin HCl 500 mg tablet 500 mg PO BID 08/23/24 08/23/24 Unknown (Cipro) finasteride 5 mg tablet 5 mg PO QAM 08/23/24 08/23/24 Unknown solifenacin 5 mg tablet (Vesicare) 5 mg PO QAM 08/23/24 08/23/24 Unknown tamsulosin 0.4 mg capsule 0.4 mg PO QPM 08/23/24 08/23/24 Unknown Past Medical History Medical History (Updated 08/24/24 @ 08:52 by Liana Kern PA-C) Anxiety Atrial flutter with rapid ventricular response Status post ablation typical isthmus dependent right atrial flutter 12/12/2020 BPH (benign prostatic hyperplasia) Deep vein thrombosis left thigh s/p foot surgery (2012); AC x 1 year Family history of reaction to anesthesia sister- nausea/vomiting GERD (gastroesophageal reflux disease) controlled Hypertension Idiopathic polyneuropathy Lumbosacral radiculopathy Morbid obesity Osteoarthritis Pulmonary embolism b/l left thigh s/p foot surgery (2012); AC x 1 year and 2021 after right ankl e/foot surgery Seizure x2 (1996) 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; now on Dilantin Spinal stenosis Past Family History Family History Father Family history of diabetes mellitus Mother FHx: renal cell carcinoma, Onset Age: 87 Family/Other FHx: testicular cancer, Onset Age: 20 nephew Past Surgical History Surgical History H/O prostate biopsy History of ankle surgery right ankle fusion History of cardiac radiofrequency ablation per records-Status post ablation typical isthmus dependent right atrial flutter 12/12/2020 History of colonoscopy History of laminectomy L5-L6 History of total knee replacement bilateral S/P foot surgery, left Triple Arthrodesis (2012) S/P left knee arthroscopy x2 S/P right knee arthroscopy Social History Smoking Status: Never smoker Do You Dip or Chew Tobacco: No Hx Alcohol Use: Yes Alcohol type: wine alcohol intake frequency: holidays/special occasions only Hx Substance Use: No substance use type: does not use Lab Results Anesthesia Preop Results Results Anesthesia Widget: WBC 5.05 K/ul (4.8-10.8) 08/17/24 Hgb 15.1 g/dl (14.0-18.0) 08/17/24 Hct 44.8 % (42.0-52.0) 08/17/24 Plt 214 K/uL (130-400) 08/17/24 Na 139 mmol/L (136-145) 08/17/24 K 3.9 mmol/L (3.5-5.1) 08/17/24 Cl 106 mmol/L (98-107) 08/17/24 CO2 29 mmol/L (21-32) 08/17/24 BUN 28 mg/dl (6-23) H 08/17/24 Creat 0.81 mg/dl (0.6-1.4) 08/17/24 Glucose Level 89 mg/dl (70-99(Fasting)) 08/17/24 Testing Electrocardiogram Date: 08/17/24 NSR, rate 68 bpm Incomplete RBBB Chest X-Ray Date: 08/17/24 No acute chest disease. Echocardiogram Date: 12/11/20 EF 60-65% No LV regional wall motion abnormalities Mild LVH No significant valvular abnormalities
[~2024-08-31 06:55] MED LIST changes: -ACETAMINOPHEN 500 MG TAB PO SCH; +ATROPINE SULFATE 0.1 MG/ML 10ML SYR IV PRN; -BUPIVACAINE 0.5 % 5 MG/1 ML PF 10ML VIAL ONE; -BUPIVACAINE LIPOSOME/PF 266 MG, BUPIVACAINE/EPINEPHRINE 50 ML, SODIUM CHLORIDE 0.9% 30 ... INFIL SCH; -CEFAZOLIN 3000MG 72.5 ML IV SCH; -FAMOTIDINE 20 MG TAB PO SCH; -GABAPENTIN 600 MG DOSE PO SCH; -LR 500ML BOLUS, THEN 15ML/HR IV SCH; -LR 60ML/HR IV SCH; -METOCLOPRAMIDE HCL 10 MG TABLET PO SCH; +ONDANSETRON INJ 2 MG/ML 2 ML VIAL IV PRN; -ROPIVACAINE 0.5% 5 MG/ML 30 ML VIAL ONE; -SCOPOLAMINE 1.5 MG TDSY TD SCH; -TRANEXAMIC ACID 1,000 MG **IV Intra-op IV SCH; +ePHEDrine sulfate 50 MG/ML AMP IV PRN; +fentaNYL citrate PF 100 MCG/2 ML VIAL IV PRN
[2024-08-31] MEDS ORDERED: ACETAMINOPHEN 1000 MG/100 ML IV IV ONE (07:34)
[2024-08-31] MEDS: LR 15ML/HR IV SCH (07:44)
[2024-08-31] MEDS ORDERED: fentaNYL citrate PF 100 MCG/2 ML VIAL ONE (07:45)
[2024-08-31] MEDS ORDERED: MIDAZOLAM HCL 1 MG/ML 2ML VIAL ONE (07:45)
[2024-08-31] MEDS ORDERED: LIDOCAINE 2% 2 ML VIAL/AMP(20MG/ML) INFIL ONE ×2 (07:46)
--- NOTE | 2024-08-31 07:52 | History & Physical Report ---
Date of Service August 31, 2024 Assessment & Plan (1) Lesion of bladder: (2) BPH with urinary obstruction: Plan We reviewed the plan for transurethral resection of bladder lesion and transurethral resection of the prostate. We reviewed risks and benefits of surgery. He expressed understanding would like to proceed. History of Present Illness Chief Complaint: Incomplete bladder emptying/LUTS, bladder lesion Primary Care Provider: Garrett Winston This is a 64-year-old male followed by urology for lower urinary tract symptoms. Cystoscopy recently identified an enlarged prostate and a patch of abnormal appearing mucosa on the prostate itself. He presents to the OR today for resection of this abnormal area for pathologic analysis as well as transurethral resection of the prostate. He has been on ciprofloxacin leading up to surgery for a urine culture with a very small amount of Pseudomonas. He denies any UTI symptoms. Allergies Allergy/AdvReac Type Severity Reaction Status Date / Time etodolac Allergy Unknown Hives and Verified 08/31/24 07:22 rash nickel Allergy Unknown Rash Verified 08/31/24 07:22 Home Medications Medication Instructions Recorded Confirmed Type bupropion HCl 150 mg 24 hr tablet, 150 mg PO QAM 06/27/19 08/31/24 History extended release (Wellbutrin XL) buspirone 15 mg tablet 15 mg PO QAM 06/27/19 08/31/24 History escitalopram oxalate 20 mg tablet 20 mg PO QAM 06/27/19 08/31/24 History (Lexapro) esomeprazole magnesium 40 mg 40 mg PO QAM 06/27/19 08/31/24 History capsule,delayed release (Nexium) phenytoin sodium extended 100 mg 200 mg PO QAM 06/27/19 08/31/24 History capsule (Dilantin Extended) phenytoin sodium extended 100 mg 300 mg PO HS 06/27/19 08/31/24 History capsule (Dilantin Extended) valsartan 160 1 tab PO QAM 06/27/19 08/31/24 History mg-hydrochlorothiazide 25 mg tablet (Diovan HCT) amoxicillin 500 mg tablet 2,000 mg PO DIRECTED PRN Prior 12/10/20 08/31/24 History to Dental Work cholecalciferol (vitamin D3) 50 50 mcg PO QAM 12/10/20 08/31/24 History mcg (2,000 unit) capsule (Vitamin D3) B-complex with vitamin C 1 tab PO QAM 11/30/23 08/31/24 History colchicine 0.6 mg tablet 0.6 mg PO BID 11/30/23 08/31/24 History diclofenac sodium 75 mg 75 mg PO BID 11/30/23 08/31/24 History tablet,delayed release krill oil 500 mg capsule 500 mg PO QAM 11/30/23 08/31/24 History vitamin E mixed 400 unit capsule 400 unit PO QAM 11/30/23 08/31/24 History zinc acetate 50 mg (zinc) capsule 50 mg PO HS 11/30/23 08/31/24 History apixaban 2.5 mg tablet (Eliquis) 2.5 mg PO BID 08/23/24 08/31/24 History ciprofloxacin HCl 500 mg tablet 500 mg PO BID 08/23/24 08/31/24 History (Cipro) finasteride 5 mg tablet 5 mg PO QAM 08/23/24 08/31/24 History solifenacin 5 mg tablet (Vesicare) 5 mg PO QAM 08/23/24 08/31/24 History tamsulosin 0.4 mg capsule 0.4 mg PO QPM 08/23/24 08/31/24 History Past Med/Surg History Problem List Lesion of bladder Dysuria Spinal stenosis of lumbar region with neurogenic claudication Paresthesia of both lower extremities Spinal stenosis of lumbar region Lumbosacral radiculopathy Idiopathic polyneuropathy Palpitations (Acute) Hypertension (Acute) Tachycardia (Acute) Elevated PSA BPH with urinary obstruction History of bilateral knee replacement Encounter for pre-operative examination Medical History Lumbosacral radiculopathy Idiopathic polyneuropathy Atrial flutter with rapid ventricular response Status post ablation typical isthmus dependent right atrial flutter 12/12/2020 Family history of reaction to anesthesia sister- nausea/vomiting Morbid obesity Osteoarthritis Spinal stenosis BPH (benign prostatic hyperplasia) GERD (gastroesophageal reflux disease) controlled Pulmonary embolism b/l left thigh s/p foot surgery (2012); AC x 1 year and 2021 after right ankle/foot surgery Deep vein thrombosis left thigh s/p foot surgery (2012); AC x 1 year Anxiety Seizure x2 (1996) 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; now on Dilantin Hypertension Surgical History History of ankle surgery right ankle fusion History of cardiac radiofrequency ablation per records-Status post ablation typical isthmus dependent right atrial flutter 12/12/2020 S/P right knee arthroscopy S/P left knee arthroscopy x2 History of total knee replacement bilateral History of laminectomy L5-L6 H/O prostate biopsy History of colonoscopy S/P foot surgery, left Triple Arthrodesis (2012) Family History Father Family history of diabetes mellitus Mother FHx: renal cell carcinoma, Onset Age: 87 Family/Other FHx: testicular cancer, Onset Age: 20 nephew Social History Smoking Status: Never smoker Second Hand Exposure: No; Do You Dip or Chew Tobacco: No; Tobacco Cessation Education Requested by Patient: No Hx Alcohol Use: Yes Alcohol type: wine Hx Substance Use: No Preferred Language: Malay Communication Ability: Effective Visual Impairment: No Limitations Hearing Ability: Normal Assistant Professor Of Theater Required: No Beliefs That Will Affect Care: None marital status: Current Living Situation: Spouse current occupational status: employed 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
[2024-08-31] MEDS ORDERED: PROPOFOL IV EMULSION 10 MG/ML 20 ML VIAL IV ONE ×2 (07:53→07:57)
[2024-08-31] MEDS ORDERED: KETAMINE HCL 10MG/ML SYR ONE (08:03)
[2024-08-31] MEDS ORDERED: DEXAMETHASONE SOD INJ 4 MG/ML VIAL ONE ×2 (08:03)
[2024-08-31] MEDS ORDERED: ONDANSETRON INJ 2 MG/ML 2 ML VIAL ONE (08:03)
[2024-08-31] MEDS: ceFAZolin 2000MG 2,000 MG/15 ML SYR IV SCH (08:21)
--- NOTE | 2024-08-31 10:01 | Operative Report ---
PG Post Operative Report Pre & Post Diagnosis Operation Date: 08/31/24 08:15 Pre-Op Diagnosis: Lesion of Bladder, Benign Prostatic Hyperplasia with Urinary Obstruction Post-Op Diagnosis: Lesion of Bladder, Benign Prostatic Hyperplasia with Urinary Obstruction I identified the patient and participated in the time-out.: Yes Procedure Operation Date: 08/31/24 08:15 Actual Procedures p TURBT (Transurethral Resection of the Bladder Tumor (small))- Nehemiah Sen MD s TURP (Transurethral Resection of the Prostate)(Not Applicable) - Nehemiah Sen MD Surgeon Nehemiah Sen MD Java Spring Developer None Estimated Blood Loss 20 Findings See Below Upraised area on some of the prostatic mucosa, resected with bipolar loop, approximately 1 cm in diameter TURP performed Specimens 1) prostatic mucosa lesion 2) prostate chips Drains 22 [place] catheter, 30 cc in balloon, CBI running Anesthesia Type General Complications none Disposition Accompanied Patient To Recovery: Yes Disposition: Recovery Room Indications This is a 64-year-old male followed by urology for BPH, incomplete emptying of the bladder. Recent cystoscopy identified an upraised abnormal appearing area of the prostatic mucosa. He is brought to the OR for resection of this area and transurethral resection of the prostate. Description of Procedure The patient was identified in the holding area and informed consent was confirmed. He was taken to the operating room where general anesthesia was initiated. He was placed in the dorsal lithotomy position with all pressure points appropriately padded. He was prepped and draped in the usual sterile fashion and a preoperative timeout was performed. A well-lubricated resectoscope was inserted per urethra and panendoscopy was performed. His pendulous urethra was normal with no strictures or mucosal abnormalities. Prostate was somewhat enlarged. At the bladder neck/junction with the prostate, there was a slightly upraised, mildly papillary appearing area. The bipolar loop was introduced and used to resect this area and a single swipe. The tissue was collected and sent for analysis labeled as prostatic mucosal lesion. The prostate was systematically resected, starting with the median lobe, taking resection down until the capsular fibers could be identified. The proximal resection was up to the bladder neck, taking care not to injure the ureteral orifices. The distal resection extended to the verumontanum, taking care to avoid the sphincter. The lateral lobes were then resected down to the level of the capsule. I spent a long time obtaining hemostasis using both the loop and the button electrode. Even at the end, there was some ongoing hematuria. A final inspection demonstrated no injury to the ureteral orifices or the sphincter, no remaining prostate chips. A 22 Fr 3-way haro catheter was placed. The balloon was inflated with30 mL of normal saline and the catheter was attached to gravity drainage with continuous irrigation running. The catheter was left on traction. The patient was then awakened from anesthesia and was brought to the PACU in stable condition. I attest to the content of the Intraoperative Record and any orders documented therein. Any exceptions are noted below.
--- NOTE | 2024-08-31 11:10 | Anesthesiology Progress Note ---
Date of Service August 31, 2024 Anesthesia Post Procedure Vital Signs Vital Signs: Temp Pulse Pulse Resp BP Pulse Ox O2 Del Method 08/31/24 10:50 65 12 144/84 H 96 Room Air 08/31/24 10:40 66 11 L 145/83 H 94 Room Air 08/31/24 10:30 71 13 143/89 H 97 Room Air 08/31/24 10:20 72 14 160/98 H 100 Oxymask 08/31/24 10:20 68 11 L 152/87 H 96 Room Air 08/31/24 10:10 73 15 157/90 H 100 Oxymask 08/31/24 10:04 36.8 C 76 16 140/84 100 Oxymask 08/31/24 07:29 36.9 C 70 20 153/94 H 96 Room Air O2 Flow Rate 08/31/24 10:50 08/31/24 10:40 08/31/24 10:30 08/31/24 10:20 6 08/31/24 10:20 08/31/24 10:10 6 08/31/24 10:04 6 08/31/24 07:29 Pain Intensity Penis: Pain Intensity: 4 Transfer of Care Handoff Completed per policy Notes Mental Status: alert / awake / arousable Patient Amnestic to Procedure: Yes Nausea / Vomiting: adequately controlled Pain: adequately controlled Airway Patency, RR, SpO2: stable & adequate BP & HR: stable & adequate Hydration State: stable & adequate Anesthetic Complications: no major complications apparent and Pt Satisfied with anesthetic care
[2024-08-31] MEDS ORDERED: ONDANSETRON INJ 2 MG/ML 2 ML VIAL IV PRN (11:21)
[2024-08-31] MEDS ORDERED: oxyCODONE HCL IR 5 MG TAB (IMMEDIATE RELEASE) PO PRN (11:21)
[2024-08-31] MEDS: FAMOTIDINE/PF 20 MG/2 ML VIAL IV ONE (12:50)
[2024-08-31] MEDS: ACETAMINOPHEN 325 MG TAB PO PRN (14:50)
[2024-08-31] MEDS: ceFAZolin 1000MG 1,000 MG/7.5 ML SYR IV SCH (16:34)
[2024-08-31] MEDS: COLCHICINE 0.6 MG TAB PO SCH (20:36)
[2024-08-31] MEDS: TAMSULOSIN HCL 0.4 MG CAP PO SCH (20:36)
[2024-08-31] MEDS: PHENYTOIN SODIUM ER 100 MG CAP PO SCH (21:17)
[2024-08-31] MEDS: HEPARIN SOD 5,000 UNIT/0.5 ML VIAL SQ SCH (21:17)
[2024-09-01 06:10] LABS: Basophils # (auto) 0.05 K/uL (0.00-0.20); Basophils % (auto) 0.6 %; Eosinophils # (auto) 0.16 K/uL (0.00-0.50); Hematocrit (blood only) 37.2 % (42.0-52.0); Hemoglobin 12.8 g/dl (14.0-18.0); Immature Granulocytes # (auto) 0.02 K/uL (0.01-0.20); Immature Granulocytes % (auto) 0.2 %; Lymphocytes # (auto) 1.42 K/uL (1.20-3.40); Lymphocytes % (auto) 17.7 %; Mean Corpuscular Hemoglobin 31.2 pg (25.0-34.0); Mean Corpuscular Hgb Conc 34.4 g/dL (32.0-36.0); Mean Corpuscular Volume 90.7 fL (80.0-100.0); Mean Platelet Volume 10.4 fL (9.4-12.4); Monocytes # (auto) 0.67 K/uL (0.11-0.59); Monocytes % (auto) 8.3 %; Neutrophils # (auto) 5.72 K/uL (1.40-6.50); Neutrophils % (auto) 71.2 %; Platelet Count 184 K/uL (130-400); RDW Coefficient of Variation 13.2 % (11.5-14.5); RDW Standard Deviation 44.5 fL (36.4-46.3); White Blood Count 8.04 K/ul (4.8-10.8)
[2024-09-01 07:26] VITALS: RESP 16; TEMP 97.7; O2SAT 95
[2024-09-01] MEDS: hydroCHLOROthiazide 25 MG TAB PO SCH (08:08)
[2024-09-01] MEDS: PHENYTOIN SODIUM ER 100 MG CAP PO SCH (08:08)
[2024-09-01] MEDS: busPIRone 15 MG TAB PO SCH (08:09)
[2024-09-01] MEDS: FINASTERIDE 5 MG TAB PO SCH (08:09)
[2024-09-01] MEDS: VALSARTAN 80 MG TAB PO SCH (08:09)
[2024-09-01] MEDS: PANTOprazole 40 MG TAB PO SCH (08:09)
[2024-09-01] MEDS: OXYBUTYNIN CHLORIDE XL 5 MG TABCR PO SCH (08:09)
[2024-09-01] MEDS: ESCITALOPRAM OXALATE 20 MG TAB PO SCH (08:09)
[2024-09-01] MEDS: buPROPion XL 150 MG TABCR PO SCH (08:09)
[2024-09-01] MEDS ORDERED: VALSARTAN HYDROCHLOROTHIAZIDE PO SCH (09:00)
--- NOTE | 2024-09-01 09:16 | Urology Progress Note ---
Date of Service September 01, 2024 Assessment & Plan (1) BPH with urinary obstruction: (2) Lesion of bladder: Plan: - Pt POD#1 s/p TURP, TURBT with Dr. Sen - Doing well, progressing as expected - Afebrile with stable vitals - Lab work reviewed - WBC 8.04, Hgb 12.8 - Tolerating PO diet - 3 way Dasilva catheter intact, patent and draining yellow urine with occasional blushing with CBI on slow - CBI clamped @0800 - will reassess later this AM - Plan to wean CBI as appropriate - Reassessed catheter at 0930 and urine remains clear yellow with CBI clamped - Will do voiding trial now per Dr. Sen - Anticipate home later today presuming he continues to progress as expected - Expected clinical course reviewed, all questions answered - Will arrange outpatient follow-up with our service Admission and Anticipated Discharge Date Admission Date: August 31, 2024 Subjective Patient seen and examined at bedside this morning. No acute issues overnight, though reports he did not sleep well. Denies pain. Dasilva draining relatively clear urine with CBI on slow, blushes occasionally. CBI clamped during exam. Denies nausea, vomiting, fever or chills. Review of Systems Constitutional: as per Subjective / HPI Genitourinary: + as per Subjective / HPI Physical Exam Constitutional: well developed and well nourished; no acute distress Respiratory: normal respiratory effort; no respiratory distress and no labored breathing Gastrointestinal (Abdomen): Inspection/Auscultation: abdomen normal to inspection Musculoskeletal: Head/Neck/Chest: normocephalic Neurologic: moves all extremities and awake Psychiatric: Orientation: alert and oriented x 3 Genitourinary: Dasilva draining relatively clear urine with CBI on slow, blushes occasionally during exam. CBI clamped during exam. Results & Data Vital Signs (Past 12 Hours) Vital Signs Temp Pulse Pulse Resp BP Pulse Ox O2 Del Method 09/01/24 07:25 36.5 C 76 16 122/76 95 Room Air 09/01/24 04:00 36.6 C 73 18 119/74 98 Room Air 08/31/24 23:40 36.7 C 65 18 121/82 96 Room Air PG Care Time/CCT Total # of Minutes Spent Total Time Spent with Patient: Total time spent is greater than 50% in coordination of care (as documented) at patient's floor/unit and/or counseling patient: Coding Level of Care Code None Diagnoses BPH with urinary obstruction N40.1; N13.8 Lesion of bladder N32.9
--- NOTE | 2024-09-01 10:34 | Discharge Summary ---
Date of Service September 01, 2024 Admission HPI Per Admitting Provider This is a 64-year-old male followed by urology for lower urinary tract symptoms. He underwent TURP and bladder biopsy on 08/31/2024 and was admitted postoperatively for CBI and ongoing care. Admission Exam Per Admitting Provider Physical Exam: Well-appearing, NAD Principal Diagnosis BPH, incomplete bladder emptying Discharge Exam Well-appearing, NAD Resting in bed comfortably Urinal with pink-tinged urine present Discharge Data Allergies Allergy/AdvReac Type Severity Reaction Status Date / Time etodolac Allergy Unknown Hives and Verified 08/31/24 07:22 rash nickel Allergy Unknown Rash Verified 08/31/24 07:22 Procedures Performed Operation Date: 08/31/24 08:15 Actual Procedures p TURBT (Transurethral Resection of the Bladder Tumor), (Not Applicable) - Nehemiah Sen MD s TURP (Transurethral Resection of the Prostate)(Not Applicable) - Nehemiah Sen MD s Cystoscopy(Not Applicable) - Nehemiah Sen MD Hospital Course (1) Lesion of bladder: (2) BPH with urinary obstruction: Plan He underwent TURP and resection of bladder lesion on 08/31/2024. Postoperatively he was admitted on continuous bladder irrigation. This was gradually weaned overnight and stopped on 09/01. Urine stayed clear and he subsequently passed a voiding trial. He was discharged home in good condition. Total Time Total Time Spent Total Time Spent (In Minutes): 15 Discharge Plan Discharge Items Patient Disposition: Home - Self-Care Reason For Visit: POST-OP BPH Discharge Diagnosis: Post-op BPH Activity: Per Instructions section Bathing Comment: Okay to shower after discharge Sexual Activity: Wait until after follow-up appointment Exercise/Sports: Wait until after follow-up appointment Non-emergency contact: Surgeon and Urologist Call non-emergency contact if: your pain is not controlled and your temperature is above 101 Follow-up/Referrals: Garrett Wniston [Primary Care Provider] - Diet: Regular Addtl Attending Provider Instructions: The surgery you had was TURP (Trans-urethral resection of the prostate) Please take all medications as prescribed and keep all follow-ups as scheduled. Please call our office at [phone] with any questions, concerns or need to reschedule appointments for any reason. We are happy to assist you. Medications: -Please resume your normal medications as previously prescribed. -Take a stool softener such as colace or Miralax to keep your stool soft. The goal is one soft bowel movement daily. -For pain, it is ok to take tylenol. You can also try pyridium (also known as AZO). This can be gotten [id number]. It turns your urine a bright orange color. -You have been prescribed an antibiotic (ciprofloxacin). Please take this twice daily for the next 5 days. Activity: -Avoid straining or bearing down for the next 1-2 weeks. This can cause or increase bleeding. Avoiding straining to have bowel movements. -If you notice blood in your urine, try to remain well-hydrated to keep the urine dilute. -For the next 2 weeks, avoid activities that put pressure on your perineum (area behind the scrotum), such as riding a bike. What to expect after your procedure: -You may notice some blood in your urine. As long as your catheter is draining, this is ok. -You may have increased urinary frequency and urgency; this should improve with time. -You may notice some urinary leaking, especially with coughing/sneezing/bearing down. This should improve with time. When to call [facility] at [phone]: Fever of 101F or higher Heavy bleeding Pain that is not controlled with medicine Uncontrolled vomiting Problems urinating or inability to urinate Our office will call to arrange a phone call for pathology discussion as well as additional follow-up. Pending Studies at Discharge: No Stand-Alone Forms: My [facility] [employer], Smoking Cessation Medications and DC Order Prescriptions: New ciprofloxacin HCl [Cipro] 500 mg tablet 500 mg PO BID Qty: 10 0RF Continued zinc acetate 50 mg (zinc) capsule 50 mg PO HS colchicine 0.6 mg tablet 0.6 mg PO BID diclofenac sodium 75 mg tablet,delayed release (DR/EC) 75 mg PO BID B-complex with vitamin C Tablet 1 tab PO QAM vitamin E mixed 400 unit capsule 400 unit PO QAM krill oil 500 mg capsule 500 mg PO QAM phenytoin sodium extended [Dilantin Extended] 100 mg Capsule 200 mg PO QAM phenytoin sodium extended [Dilantin Extended] 100 mg Capsule 300 mg PO HS esomeprazole magnesium [Nexium] 40 mg Capsule,Delayed Release(Dr/Ec) 40 mg PO QAM buspirone 15 mg Tablet 15 mg PO QAM valsartan-hydrochlorothiazide [Diovan HCT] 160-25 mg Tablet 1 tab PO QAM escitalopram oxalate [Lexapro] 20 mg Tablet 20 mg PO QAM bupropion HCl [Wellbutrin XL] 150 mg Tablet Extended Release 24 Hr 150 mg PO QAM cholecalciferol (vitamin D3) [Vitamin D3] 50 mcg (2,000 unit) Capsule 50 mcg PO QAM amoxicillin 500 mg tablet 2,000 mg PO DIRECTED PRN (Reason: Prior to Dental Work) Rx Instructions: TAKE 4 TABLETS ONE HOUR PRIOR TO DENTAL WORK ciprofloxacin HCl [Cipro] 500 mg Tablet 500 mg PO BID tamsulosin 0.4 mg capsule 0.4 mg PO QPM finasteride 5 mg tablet 5 mg PO QAM solifenacin [Vesicare] 5 mg tablet 5 mg PO QAM Eliquis 2.5 mg Tablet 2.5 mg PO BID Patient Comments: patient was prescribed for long flights and will be returning from [place] 08/28/2024 Discharge Orders: Discharge Order (Routine); Ordered 09/01/24 Ordered By: Nehemiah Sen Admission Data Admit Date/Time: 08/31/24 11:24 Attending Provider: Nehemiah Sen Admit Provider: Nehemiah Sen Primary Care Provider: Garrett Winston Coding Level of Care Code 10226 IN/OBS DISCH 30 MIN/LESS Diagnoses Lesion of bladder N32.9 BPH with urinary obstruction N40.1; N13.8
[2024-09-01 11:29] VITALS: BP 112/77; PULSE 73
== END 2024-09-01 12:56 | disposition home or self-care (01) ==
LOC: 3E 06:55 → ASU 06:55